=== PATIENT | female | born 1980 | race Caucasian/White ===

== ENCOUNTER 2018-12-08 06:56 | Inpatient (IN) | payer OTHER ==
[2018-12-08] MEDS ORDERED: SODIUM CHLORIDE 0.9% 2,000 ML IV STA (07:07)
[2018-12-08] MEDS ORDERED: PANTOPRAZOLE 40 MG/10 ML VIAL IVP STA (07:07)
[2018-12-08] MEDS ORDERED: ONDANSETRON 4 MG/2 ML VIAL IVP STA (07:07)
[2018-12-08] MEDS ORDERED: LORazepam 2 MG/ML INJ IV STA ×2 (07:08→15:41)
[2018-12-08] MEDS ORDERED: THIAMINE 100 MG/ML 2 ML VIAL IM STA (07:08)
--- NOTE | 2018-12-08 07:24 | ED ---
General Adult HPI - General Chief complaint: Nausea/Vomiting/Diarrhea Stated complaint: poss sinus infection,alcohol withdrawl Time Seen by Provider: 12/08/18 07:06 Source: patient, family, RN notes reviewed Mode of arrival: ambulatory Limitations: no limitations - History of Present Illness Initial comments: This a 38-year-old female presents emergency Department with multiple complaints. Primary complaint is sinus infection, alcohol withdrawal. Patient states she's been dealing sinus issues for one month has been on 3 different antibiotics and is scheduled see ENT. Patient went to severe facial pain, head blurred vision near no vision her right eye when she woke up this morning. Patient states that has resolved this time. She has had some pressure behind her eye on the right. Patient states she currently is not having that symptoms. Patient states that she does have a history of alcohol abuse in which 2 years ago she had a liver failure, was jaundice and admitted to the hospital. Patient states that she usually drinks at least a bottle wine and at least a pint of vodka daily. Patient states she has been vomiting all morning, shaking Heart is racing and she's having hallucinations. Patient states that she was restrained last time she had hallucinations from alcohol withdrawal. Patient has never been to rehab. Patient denies any suicidal or homicidal ideation. Patient was no localized abdominal pain - Related Data Home Medications Medication Instructions Recorded Confirmed Atenolol 100 mg PO DAILY 12/08/18 12/08/18 Citalopram Hydrobromide [CeleXA] 40 mg PO DAILY 12/08/18 12/08/18 Ibuprofen [Motrin Ib] 200 mg PO Q6H PRN 12/08/18 12/08/18 Allergies Allergy/AdvReac Type Severity Reaction Status Date / Time No Known Allergies Allergy Verified 12/08/18 08:43 Review of Systems ROS Statement: Those systems with pertinent positive or pertinent negative responses have been documented in the HPI. ROS Other: All systems not noted in ROS Statement are negative. Past Medical History Past Medical History: Hypertension History of Any Multi-Drug Resistant Organisms: None Reported Past Surgical History: Adenoidectomy, Tonsillectomy Additional Past Surgical History / Comment(s): sinus Past Psychological History: Anxiety Smoking Status: Former smoker Past Alcohol Use History: Abuse, Heavy Past Drug Use History: None Reported General Exam Limitations: no limitations General appearance: alert, in no apparent distress Head exam: Present: atraumatic, normocephalic, normal inspection Eye exam: Present: normal appearance, PERRL, EOMI. Absent: scleral icterus, conjunctival injection, periorbital swelling ENT exam: Present: normal oropharynx, mucous membranes moist, TM's normal bilaterally, normal external ear exam. Absent: normal exam (Maxillary sinus tenderness) Neck exam: Present: normal inspection, full ROM. Absent: tenderness, meningismus, lymphadenopathy Respiratory exam: Present: normal lung sounds bilaterally. Absent: respiratory distress, wheezes, rales, rhonchi, stridor Cardiovascular Exam: Present: normal rhythm, tachycardia, normal heart sounds. Absent: systolic murmur, diastolic murmur, rubs, gallop, clicks GI/Abdominal exam: Present: soft, normal bowel sounds. Absent: distended, tenderness, guarding, rebound, rigid Neurological exam: Present: alert, oriented X3, CN II-XII intact Skin exam: Present: warm, dry, intact, normal color. Absent: rash Course Vital Signs 12/08/18 07:00 Temperature 98.7 F Pulse Rate 104 H Respiratory 20 Rate Blood Pressure 141/96 O2 Sat by Pulse 98 Oximetry Medical Decision Making - Medical Decision Making 38-year-old female presented from for abdominal pain, nausea vomiting. Patient does have a call withdrawal symptoms, elevated liver enzymes and concern for possible pancreatitis unable to run lipase at this time due to lipemic sample. Case discussed with admitting physician who recommended CT and replacement cwia protocol. - Lab Data Result diagrams: 12/08/18 07:38 12/08/18 07:38 Lab Results 12/08/18 12/08/18 12/08/18 Range/Units 07:38 07:38 08:05 WBC 6.1 (3.8-10.6) k/uL RBC 4.05 (3.80-5.40) m/uL Hgb 13.4 (11.4-16.0) gm/dL Hct 39.9 (34.0-46.0) % MCV 98.5 (80.0-100.0) fL MCH 32.9 (25.0-35.0) pg MCHC 33.7 (31.0-37.0) g/dL RDW 14.5 (11.5-15.5) % Plt Count 172 (150-450) k/uL Neutrophils % 57 % Lymphocytes % 35 % Monocytes % 5 % Eosinophils % 1 % Basophils % 1 % Neutrophils # 3.4 (1.3-7.7) k/uL Lymphocytes # 2.1 (1.0-4.8) k/uL Monocytes # 0.3 (0-1.0) k/uL Eosinophils # 0.0 (0-0.7) k/uL Basophils # 0.1 (0-0.2) k/uL Sodium 138 (137-145) mmol/L Potassium 4.7 (3.5-5.1) mmol/L Chloride 101 (98-107) mmol/L Carbon Dioxide 20 L (22-30) mmol/L Anion Gap 17 mmol/L BUN 19 H (7-17) mg/dL Creatinine 0.64 (0.52-1.04) mg/dL Est GFR (CKD-EPI)AfAm >90 (>60 ml/min/1.73 sqM) Est GFR (CKD-EPI)NonAf >90 (>60 ml/min/1.73 sqM) Glucose 122 H (74-99) mg/dL Calcium 8.4 (8.4-10.2) mg/dL Magnesium 1.8 (1.6-2.3) mg/dL Total Bilirubin 2.2 H (0.2-1.3) mg/dL AST 603 H (14-36) U/L ALT 143 H (9-52) U/L Alkaline Phosphatase 374 H (38-126) U/L Total Protein 8.0 (6.3-8.2) g/dL Albumin 4.1 (3.5-5.0) g/dL Amylase 84 (30-110) U/L Lipase (23-300) U/L Urine Color Yellow Urine Appearance Cloudy H (Clear) Urine pH 6.0 (5.0-8.0) Ur Specific [place] 1.022 (1.001-1.035) Urine Protein Trace H (Negative) Urine Glucose (UA) Negative (Negative) Urine Ketones Negative (Negative) Urine Blood Trace H (Negative) Urine Nitrite Negative (Negative) Urine Bilirubin Negative (Negative) Urine Urobilinogen <2.0 (<2.0) mg/dL Ur Leukocyte Esterase Negative (Negative) Urine RBC 6 H (0-5) /hpf Urine WBC 8 H (0-5) /hpf Ur Squamous Epith Cells 5 H (0-4) /hpf Amorphous Sediment Rare H (None) /hpf Urine Bacteria Occasional H (None) /hpf Hyaline Casts 19 H (0-2) /lpf Urine Mucus Occasional H (None) /hpf Urine HCG, Qual (Not Detectd) Serum Alcohol 223 H* mg/dL 12/08/18 Range/Units 08:05 WBC (3.8-10.6) k/uL RBC (3.80-5.40) m/uL Hgb (11.4-16.0) gm/dL Hct (34.0-46.0) % MCV (80.0-100.0) fL MCH (25.0-35.0) pg MCHC (31.0-37.0) g/dL RDW (11.5-15.5) % Plt Count (150-450) k/uL Neutrophils % % Lymphocytes % % Monocytes % % Eosinophils % % Basophils % % Neutrophils # (1.3-7.7) k/uL Lymphocytes # (1.0-4.8) k/uL Monocytes # (0-1.0) k/uL Eosinophils # (0-0.7) k/uL Basophils # (0-0.2) k/uL Sodium (137-145) mmol/L Potassium (3.5-5.1) mmol/L Chloride (98-107) mmol/L Carbon Dioxide (22-30) mmol/L Anion Gap mmol/L BUN (7-17) mg/dL Creatinine (0.52-1.04) mg/dL Est GFR (CKD-EPI)AfAm (>60 ml/min/1.73 sqM) Est GFR (CKD-EPI)NonAf (>60 ml/min/1.73 sqM) Glucose (74-99) mg/dL Calcium (8.4-10.2) mg/dL Magnesium (1.6-2.3) mg/dL Total Bilirubin (0.2-1.3) mg/dL AST (14-36) U/L ALT (9-52) U/L Alkaline Phosphatase (38-126) U/L Total Protein (6.3-8.2) g/dL Albumin (3.5-5.0) g/dL Amylase (30-110) U/L Lipase (23-300) U/L Urine Color Urine Appearance (Clear) Urine pH (5.0-8.0) Ur Specific [place] (1.001-1.035) Urine Protein (Negative) Urine Glucose (UA) (Negative) Urine Ketones (Negative) Urine Blood (Negative) Urine Nitrite (Negative) Urine Bilirubin (Negative) Urine Urobilinogen (<2.0) mg/dL Ur Leukocyte Esterase (Negative) Urine RBC (0-5) /hpf Urine WBC (0-5) /hpf Ur Squamous Epith Cells (0-4) /hpf Amorphous Sediment (None) /hpf Urine Bacteria (None) /hpf Hyaline Casts (0-2) /lpf Urine Mucus (None) /hpf Urine HCG, Qual Not Detected (Not Detectd) Serum Alcohol mg/dL Disposition Clinical Impression: Alcohol withdrawal, Alcoholic hepatitis, Abdominal pain, Nausea & vomiting Disposition: ADMITTED IP TO THIS [facility] Condition: Fair Referrals: Nonstaff,Physician [Primary Care Provider] - 1-2 days
[2018-12-08 08:03] LABS: Chloride 101 mmol/L (98-107); Sodium 138 mmol/L (137-145)
[2018-12-08 08:13] LABS: Basophils # (A) 0.1 k/uL (0-0.2); Basophils % (A) 1 %; Eosinophils % (A) 1 %; HCT 39.9 % (34.0-46.0); Lymphocytes # (A) 2.1 k/uL (1.0-4.8); Lymphocytes % (A) 35 %; MCV 98.5 fL (80.0-100.0); Mean Platelet Volume 8.4; Monocytes # (A) 0.3 k/uL (0-1.0); Monocytes % (A) 5 %; Neutrophils # (A) 3.4 k/uL (1.3-7.7); Neutrophils % (A) 57 %; Platelet Count 172 k/uL (150-450); RBC 4.05 m/uL (3.80-5.40); RDW 14.5 % (11.5-15.5); WBC 6.1 k/uL (3.8-10.6)
[2018-12-08 08:33] LABS: Amorphous Sediment,Urine Rare /hpf; Appearance,Urine Cloudy (Clear); Bacteria,Urine Occasional /hpf; Bilirubin,Urine Negative (Negative); Blood,Urine Trace (Negative); Color,Urine Yellow; Glucose,Urine (UA) Negative (Negative); Hyaline Casts,Urine 19 /lpf (0-2); Ketones,Urine Negative (Negative); Leukocyte Esterase,Urine Negative (Negative); Mucus,Urine Occasional /hpf; Nitrite,Urine Negative (Negative); Protein,Urine Trace (Negative); RBC,Urine 6 /hpf (0-5); Specific Gravity,Urine 1.022 (1.001-1.035); Squamous Epithelial Cell,Urine 5 /hpf (0-4); Urobilinogen,Urine <2.0 mg/dL (<2.0); WBC,Urine 8 /hpf (0-5)
[2018-12-08 08:38] LABS: MCH 32.9 pg (25.0-35.0); MCHC 33.7 g/dL (31.0-37.0)
[2018-12-08 08:39] LABS: HGB 13.4 gm/dL (11.4-16.0)
--- NOTE | 2018-12-08 09:03 | CT ---
EXAMINATION TYPE: CT sinus wo con DATE OF EXAM: 12/08/2018 COMPARISON: None HISTORY: Possible sinus infection, facial pain CT DLP: 345.7 mGycm. Automated Exposure Control for Dose Reduction was Utilized. TECHNIQUE: CT scan of the sinuses is performed without contrast, axial images are obtained, coronal r eformatted images are also reviewed. FINDINGS: The paranasal sinuses including the frontal, ethmoid, sphenoid, and maxillary sinuses bila terally are well-aerated scattered mucous retention cyst or polyps. Minimal mucosal thickening.. The ostiomeatal complex is patent bilaterally on the coronal images. There appears to be evidence of pre vious sinus surgery. Visualized portion of mastoid air cells show no abnormal opacification. The globes are intact bilate rally. Intracranial structures are symmetric. Correlate for exophthalmos. IMPRESSION: 1. Minimal changes of chronic sinusitis. 2. Correlate for exophthalmos
[2018-12-08 09:11] LABS: Potassium 4.7 mmol/L (3.5-5.1)
[2018-12-08 09:14] LABS: ALT 143 U/L (9-52); AST 603 U/L (14-36); African American GFR (CKD) >90 (>60 ml/min/1.73 sqM); Albumin 4.1 g/dL (3.5-5.0); Alkaline Phosphatase 374 U/L (38-126); Amylase 84 U/L (30-110); Anion Gap 17 mmol/L; Blood Urea Nitrogen 19 mg/dL (7-17); Calcium 8.4 mg/dL (8.4-10.2); Carbon Dioxide 20 mmol/L (22-30); Glucose 122 mg/dL (74-99); Magnesium 1.8 mg/dL (1.6-2.3); Total Bilirubin 2.2 mg/dL (0.2-1.3)
[2018-12-08 09:24] LABS: Alcohol 223 mg/dL
[2018-12-08] MEDS ORDERED: LORazepam 2 MG/ML INJ IV PRN (09:42)
[2018-12-08] MEDS ORDERED: MORPHINE SULFATE 4 MG/ML SYRINGE IV PRN (09:42)
[2018-12-08] MEDS ORDERED: NALOXONE 0.4 MG/ML 1 ML VIAL IV PRN (09:42)
[2018-12-08] MEDS ORDERED: ONDANSETRON 4 MG/2 ML VIAL IVP PRN (09:42)
[2018-12-08] MEDS ORDERED: SODIUM CHLORIDE 0.9% 1,000 ML with MVI, ADULT NO.4 WITH VIT K 10 ML, THIAMINE 100 MG, F... IV ONE ×4 (10:00)
[2018-12-08] MEDS: LORazepam 2 MG/ML INJ IV PRN ×4 (10:18→23:37)
--- NOTE | 2018-12-08 10:22 | CT ---
EXAMINATION TYPE: CT abdomen pelvis w con DATE OF EXAM: 12/08/2018 COMPARISON: None HISTORY: mid abd pain CT DLP: 1013.17 mGycm Automated exposure control for dose reduction was used. CONTRAST: CT scan of the abdomen pelvis is performed with IV Contrast, patient injected with 100 mL of Isovue 3 00. FINDINGS- LUNG BASES- No significant abnormality is appreciated. LIVER/GB-reduced attenuation throughout the liver correlate for hepatic steatosis.. PANCREAS- No gross abnormality is seen. SPLEEN- No gross abnormality is seen. ADRENALS- No gross abnormality is seen. KIDNEYS/BLADDER- no hydronephrosis nephrolithiasis or renal mass. BOWEL-bowel gas pattern nonspecific. Appendix is not visualized exam nondiagnostic for appendicitis. Occasional diverticula are seen:. The colon is decompressed assessment for wall thickness is nondiagn ostic. There is concern for colitis correlate clinically.. LYMPH NODES- No greater than 1cm abdominal or pelvic lymph nodes areappreciated. OSSEOUS STRUCTURES- No significant abnormality is seen. OTHER- aorta of normal caliber. Soft tissue densities in the pelvis are likely related to ovaries th e adnexa. Fat-containing periumbilical hernia noted. Uterus is lobulated in endometrium is heterogene ous. IMPRESSION- 1. Hepatomegaly with findings suggestive of hepatic steatosis. Correlate with liver function studies to exclude hepatocellular disease. 2. Nonspecific gas pattern with no diagnostic evidence of obstruction. Colonic wall is thickened but the colon is decompressed and markedly limited in assessment. Correlate clinically there is concern f or colitis. 3. Nonvisualization of the appendix. 4. Diverticulosis. 5. Slight lobulation to the uterine body could be on the basis of fibroid. There is heterogeneous end ometrium could be correlated with a short-term follow-up ultrasound
[2018-12-08 11:52] VITALS: BMI 31.8
[2018-12-08] MEDS: THIAMINE 100 MG TAB PO SCH ×2 (15:51→17:27)
[2018-12-08] MEDS ORDERED: HYDROcodone/APAP 5-325MG 1 EACH TAB PO PRN (16:02)
[2018-12-08] MEDS ORDERED: BISACODYL 5 MG TABLET.DR PO PRN (16:02)
[2018-12-08] MEDS ORDERED: MELATONIN 3 MG TABLET PO PRN (16:02)
--- NOTE | 2018-12-08 16:11 | P.HPIM ---
History of Present Illness H&P Date: 12/08/18 Chief Complaint: abdominal pain and alcohol withdrawal Patient is a 38-year-old female with a past medical history of hypertension, panic attacks, and alcohol abuse who presented to the ER with complaints of alcohol withdrawal, abdominal pain, and chronic headaches. In the ER she underwent an extensive evaluation. On arrival she was found to be tachycardic with heart rate of 104 and a blood pressure of 141/96. Initial laboratory analysis showed an elevated AST at 603, ALT 143, total bilirubin 2.2. She was also found have an anion gap metabolic acidosis with a carbon dioxide of 28 and anion gap of 17. Her alcohol level was elevated at 223. Urinalysis d id not demonstrate any evidence of urinary tract infection. She underwent a CT abdomen and pelvis which showed hepatomegaly with findings suggestive of hepatic steatosis, nonspecific gas pattern with no evidence of obstruction but colonic wall thickening, diverticulosis, and slightly lobulated uterine body with possible fibroid and heterogeneous endometrium. She is admitted for further management of her alcohol withdrawal and alcoholic hepatitis. Started on IV fluids and CIWA protocol. Patient seen and examined at bedside. Family is present. She states that she is having some abdominal pain, tremors, anxiety, and nausea and vomiting. She is typically drinking 1 bottle of wine to 1 pint of vodka daily. Her last drink was at 10 PM the night before admission. She also reports that she has been suffering from depression recently, of suicidal ideation. She's been having poor oral intake and decreased appetite. She denies any significant weight loss or weight gain. She has lost enjoying her normal activities of daily living, has been sleeping all day, and that is having insomnia at night. She has been suffering from sinusitis for the last month. She's been having headache, ear pain, runny and stuffy nose as well as postnasal drip. She has chronic sinus pressure over her maxillary sinuses and the feels like she is having a crackling. She also reports that she has had some blood in her appears in her nose. She states she's been on 3 different antibiotics over the last month and seen 3 different physicians for this. She has appointment with ENT on December 13. She also reports abdominal pain that has been present 1 month. It is worse with eating. She reports that sometimes when she is eating she feels as though her salt liquids get stuck. She sometimes regurgitates the food and sometimes only regurgitates acid-like product. She also reports increased heartburn. She states it is worse with alcohol use. Last time she stopped drinking was approximately 2 years ago. At that point in time she was hospitalized at [facility] and had significant alcohol withdrawal including hallucinations, agitation, and required restraints. She believes her liver enzymes were around thousand at that point in time. She is unsure if she has seizures. She did not require intubation. She does have a history of an embedded intrauterine IUD. She also had an en dometrial biopsy approximately one year ago. She is already following with [facility] we did discuss her endometrial heterogenety. Review of Systems Pertinent positives and negatives as discussed in HPI, a complete review of systems was performed and all other systems are negative. 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 - Past Family History Mother Family Medical History: Diabetes Mellitus Father Family Medical History: Coronary Artery Disease (CAD), Hypertension Brother(s) Additional Family Medical History / Comment(s): bicuspid aortic valve Medications and Allergies Home Medications Medication Instructions Recorded Confirmed Type Atenolol 100 mg PO DAILY 12/08/18 12/08/18 History Citalopram Hydrobromide [CeleXA] 40 mg PO DAILY 12/08/18 12/08/18 History Ibuprofen [Motrin Ib] 200 mg PO Q6H PRN 12/08/18 12/08/18 History Allergies Allergy/AdvReac Type Severity Reaction Status Date / Time No Known Allergies Allergy Verified 12/08/18 08:43 Physical Exam Osteopathic Statement: *. No significant issues noted on an osteopathic structural exam other than those noted in the History and Physical/Consult. Vitals: Vital Signs Temp Pulse Pulse Resp BP BP Pulse Ox 12/08/18 12:04 97.7 F 91 18 125/78 96 12/08/18 10:21 97.9 F 12/08/18 09:58 91 18 139/86 98 12/08/18 07:00 98.7 F 104 H 20 141/96 98 Intake and Output 12/08/18 12/08/18 12/08/18 06:59 14:59 22:59 Other: # Voids 3 Weight 81.647 kg General: non toxic, no distress, appears at stated age, Obese Derm: no unusual rashes/lesions no unusual ecchymoses, warm, dry Head: atraumatic, normocephalic, symmetric Eyes: EOMI, no lid lag, anicteric sclera, pupils equal round reactive to light ENT: Nose and ears atraumatic, no thrush, + pharyngeal erythema, + PND Neck: No thyromegaly, no cervical lymphadenopathy, trachea midline, supple Mouth: no lip lesion, mucus membranes moist Cardiovascular: S1S2 reg, no murmur, positive posterior tibial pulse bilateral, no edema, capillary refill less than 2 seconds Lungs: CTA bilateral, no rhonchi, no rales , no accessory muscle use Abdominal: soft, + tender to palpation LUQ, no guarding, no appreciable organomegaly, normal bowel sounds Ext: no gross muscle atrophy, muscle strength 5 out of 5 in all 4 extremities grossly, no contractures, Neuro: CN II-XI grossly intact, light touch intact all 4 extremities, finger to nose within normal limits, no tremors Psych: Alert, oriented, appropriate affect Results CBC & Chem 7: 12/08/18 07:38 12/08/18 07:38 Labs: Abnormal Lab Results - Last 24 Hours (Table) 12/08/18 12/08/18 Range/Units 07:38 08:05 Carbon Dioxide 20 L (22-30) mmol/L BUN 19 H (7-17) mg/dL Glucose 122 H (74-99) mg/dL Total Bilirubin 2.2 H (0.2-1.3) mg/dL AST 603 H (14-36) U/L ALT 143 H (9-52) U/L Alkaline Phosphatase 374 H (38-126) U/L Urine Appearance Cloudy H (Clear) Urine Protein Trace H (Negative) Urine Blood Trace H (Negative) Urine RBC 6 H (0-5) /hpf Urine WBC 8 H (0-5) /hpf Ur Squamous Epith Cells 5 H (0-4) /hpf Amorphous Sediment Rare H (None) /hpf Urine Bacteria Occasional H (None) /hpf Hyaline Casts 19 H (0-2) /lpf Urine Mucus Occasional H (None) /hpf Serum Alcohol 223 H* mg/dL CT scan - abdomen: report reviewed CT Scan - head: report reviewed CT scan - pelvis: report reviewed Thrombosis Risk Factor Assmnt - DVT/VTE Prophylaxis DVT/VTE Prophylaxis: Pharmacologic Prophylaxis ordered Assessment and Plan Assessment: Alcohol withdrawal with impending DTs -Patient has history significant DTs however is not a candidate for Librium secondary to liver enzyme elevation -Continue with banana bag 1 -Folic acid and thiamine supplementation -CIWA protocol -Seizure precautions - social work consult Alcoholic hepatitis -Consult GI -Signs as hepatomegaly on computed tomography scan -check viral hepatitis profile - repeat labs in AM Chronic sinusitis - claritin - flonase - has outpatient appt December 13 Abd pain with dysphaia - start PPI - GI recs Depression - abstain for alcohol - outpatient psych eval Insomnia - Melatonin Heterogeneous endometrium - endometrial biopsy approximately one year ago. - She is already following with [facility], will follow-up as outpatient The patient is placed in observation with an anticipated less than 2 per night stay for evaluation of alcohol withdrawal. Surrogate decision-maker: Mother CODE STATUS: Full DVT prophylaxis: Lovenox Discussed with: Patient, fmaily, nursing, ED physician Anticipated discharge date: 1-[address]: home A total of 65 minutes was spent on the care of this complex patient more than 50% of the time was spent in counseling and care coordination.
[2018-12-08] MEDS: PANTOPRAZOLE 40 MG TABLET PO SCH (17:27)
[2018-12-08 22:50] LABS: Hepatitis A Antibody IgM Non-Reactive (Non-Reactive); Hepatitis B Core IgM Non-Reactive (Non-Reactive)
[2018-12-09] MEDS: LORazepam 2 MG/ML INJ IV PRN ×6 (01:53→21:03)
[2018-12-09 06:48] LABS: Basophils % (A) 0 %; Eosinophils # (A) 0.1 k/uL (0-0.7); Eosinophils % (A) 1 %; HCT 30.8 % (34.0-46.0); Lymphocytes # (A) 1.6 k/uL (1.0-4.8); Lymphocytes % (A) 32 %; Monocytes # (A) 0.2 k/uL (0-1.0); Monocytes % (A) 4 %; Neutrophils # (A) 3.1 k/uL (1.3-7.7); Neutrophils % (A) 61 %; Platelet Count 102 k/uL (150-450); RBC 3.11 m/uL (3.80-5.40); RDW 14.4 % (11.5-15.5); WBC 5.1 k/uL (3.8-10.6)
[2018-12-09 07:04] LABS: Chloride 103 mmol/L (98-107); Potassium 4.2 mmol/L (3.5-5.1); Sodium 136 mmol/L (137-145)
[2018-12-09 07:17] LABS: HGB 10.3 gm/dL (11.4-16.0); MCH 32.7 pg (25.0-35.0); MCHC 33.8 g/dL (31.0-37.0)
[2018-12-09 07:31] LABS: ALT 115 U/L (9-52); AST 515 U/L (14-36); African American GFR (CKD) >90 (>60 ml/min/1.73 sqM); Albumin 3.2 g/dL (3.5-5.0); Alkaline Phosphatase 258 U/L (38-126); Blood Urea Nitrogen 11 mg/dL (7-17); Calcium 7.9 mg/dL (8.4-10.2); Glucose 97 mg/dL (74-99); Total Bilirubin 2.4 mg/dL (0.2-1.3); Total Protein 6.5 g/dL (6.3-8.2)
[2018-12-09 07:55] LABS: Anion Gap 11 mmol/L; Carbon Dioxide 22 mmol/L (22-30); Magnesium 1.5 mg/dL (1.6-2.3)
[2018-12-09] MEDS: PANTOPRAZOLE 40 MG TABLET PO SCH (08:11)
[2018-12-09] MEDS: FOLIC ACID 1 MG TAB PO SCH (08:11)
[2018-12-09] MEDS: ENOXAPARIN 40 MG/0.4 ML SYRINGE SQ SCH (08:11)
[2018-12-09] MEDS: THIAMINE 100 MG TAB PO SCH ×2 (08:11→18:14)
[2018-12-09] MEDS: FLUTICASONE 50MCG/SPRAY NASAL 16GM EA NOSTRIL SCH (08:11)
[2018-12-09] MEDS: LORATADINE 10 MG TAB PO SCH (08:11)
[2018-12-09] MEDS ORDERED: PANTOPRAZOLE 40 MG/10 ML VIAL IV SCH (09:00)
--- NOTE | 2018-12-09 10:26 | P.PN ---
Subjective Progress Note Date: 12/09/18 Principal diagnosis: alcohol withdrawal Patient is a 38-year-old female with a past medical history of hypertension, panic attacks, and alcohol abuse who presented to the ER with complaints of alcohol withdrawal, abdominal pain, and chronic headaches. In the ER she underwent an extensive evaluation. On arrival she was found to be tachycardic with heart rate of 104 and a blood pressure of 141/96. Initial laboratory analysis showed an elevated AST at 603, ALT 143, total bilirubin 2.2. She was also found have an anion gap metabolic acidosis with a carbon dioxide of 28 and anion gap of 17. Her alcohol level was elevated at 223. Urinalysis did not demonstrate any evidence of urinary tract infection. She underwent a CT abdomen and pelvis which showed hepatomegaly with findings suggestive of hepatic steatosis, nonspecific gas pattern with no evidence of obstruction but colonic wall thickening, diverticulosis, and slightly lobulated uterine body with possib le fibroid and heterogeneous endometrium. She was admitted for further management of her alcohol withdrawal and alcoholic hepatitis. She was started on IV fluids and CIWA protocol. She was a history of severe alcohol withdrawals proximately 2 years prior. She is also been having issues with chronic sinusitis. On the morning of 12/09 her withdrawal symptoms had worsened and fixed dose of Ativan was admitted to the CIWA protocol. Patient seen and examined at bedside. She states she is having some auditory and visual hallucinations, she is feeling pretty restless and agitated, she is not Picking at things, she is also having some sweating and shaky feelings. She denies any nausea. She denies any seizure-like activity. She denies any chest pain or shortness of breath. Objective - Vital Signs Vital signs: Vital Signs Temp 98.5 F 12/09/18 07:00 Pulse 77 12/09/18 07:00 Resp 16 12/09/18 07:00 BP 139/83 12/09/18 07:00 Pulse Ox 96 12/09/18 07:00 Intake & Output 12/08/18 12/09/18 12/09/18 18:59 06:59 18:59 Intake Total 100 236 Balance 100 236 Weight 81.647 kg Intake: Oral 100 236 Other: # Voids 3 - Exam General: non toxic, mild distress, appears at stated age Derm: warm, diaphoretic Head: atraumatic, normocephalic, symmetric Eyes: EOMI, no lid lag, anicteric sclera Mouth: no lip lesion, mucus membranes moist Cardiovascular: S1 and S2 tachycardic, no murmur, positive posterior tibial pulse bilateral, Lungs: Decreased breath sounds bilateral, no rhonchi, no rales , no accessory muscle use Abdominal: soft, nontender to palpation, no guarding, no appreciable organomegaly Ext: no gross muscle atrophy, no edema, no contractures Neuro: CN II-XI grossly intact, no focal neuro deficits Psych: Alert, oriented, appropriate affect - Labs CBC & Chem 7: 12/09/18 06:06 12/09/18 06:06 Labs: Abnormal Lab Results - Last 24 Hours (Table) 12/09/18 12/09/18 Range/Units 06:06 06:06 RBC 3.11 L (3.80-5.40) m/uL Hgb 10.3 L D (11.4-16.0) gm/dL Hct 30.8 L (34.0-46.0) % Plt Count 102 L (150-450) k/uL Sodium 136 L (137-145) mmol/L Calcium 7.9 L (8.4-10.2) mg/dL Magnesium 1.5 L (1.6-2.3) mg/dL Total Bilirubin 2.4 H (0.2-1.3) mg/dL AST 515 H (14-36) U/L ALT 115 H (9-52) U/L Alkaline Phosphatase 258 H (38-126) U/L Albumin 3.2 L (3.5-5.0) g/dL Assessment and Plan Assessment: Alcohol withdrawal with impending DTs -Patient has history of significant DTs however she is not a candidate for Librium secondary to liver enzyme elevation -Completed banana bag -Folic acid and thiamine supplementation -CIWA protocol, add ativan PO q8h -Seizure precautions -social work recs Alcoholic hepatitis -Await GI recs -Signs of hepatomegaly on computed tomography scan -Viral hepatitis profile, negative - repeat labs in AM Chronic sinusitis - claritin - flonase - has outpatient appt December 13 Abd pain with dysphagia - PPI - GI recs Anemia and thrombocytopenia - follow CBC - suspect this may be her baseline, will check B 12 and Folate and FE studies Depression - abstain from alcohol - outpatient psych eval Insomnia - Melatonin Heterogeneous endometrium - endometrial biopsy approximately one year ago. - She is already following with [facility], will follow-up as outpatient DVT prophylaxis: Lovenox Discussed with: Patient, nursing Anticipated discharge date: 1-[address]: home A total of 30 minutes was spent on the care of this complex patient more than 50% of the time was spent in counseling and care coordination.
[2018-12-09] MEDS: MAGNESIUM SULFATE-D5W PMX 1 GM in DEXTROSE/WATER 1 100ML.BAG IVPB SCH ×4 (10:42→18:14)
[2018-12-09] MEDS: LORazepam 1 MG TAB PO SCH ×3 (10:42→23:27)
--- NOTE | 2018-12-09 22:12 | P.CONS ---
History of Present Illness - Reason for Consult Consult date: 12/09/18 Elevated liver enzymes, alcoholic hepatitis, alcoholic liver disease Requesting physician: Kellen Vasquez - Chief Complaint Abdominal pain, withdrawal - History of Present Illness 38-year-old female with a past medical history signi panic attacks and alcohol abuse who presented to the hospital with complaints of abdominal pain, chronic headaches alcohol withdrawal. The patient reports epigastric pain which she believes is worse with food and at night. She describes the pain as cramping and burning in sens The pain has been present for approximately one month. She does report trying [id number] Tums for treatment of her pain with no relief. She is not tried proton pump inhibitor therapy in the past. She does report intermittent dysphagia as well as odynophagia. No prior EGD the reported. She does report that her family members have been diagnosed with a hiatal hernia. No colonoscop Generally bowel movements are 1-2 nonbloody non- melanotic stool daily. No prior episodes of gallbladder dysfunction. She denies any history of IV drug abuse. No new medications over the past 6 months, herbal supplementations, blood transfusions but does have tattoos and reports antibiotic treatment for sinusitis recently. Patient isn't every day drinker re porting consumption of 1 bottle of wine or 1 pint of vodka. Last alcoholic beverage was prior to admission. Liver enzymes on presentation significant for total bilirubin 2.2, AST 603, ALT 143. Computed tomography scan of the abdomen and pelvis showed hepatomegaly with findings suggestive of hepatic steatosis,nonspecific gas pattern with no obstruction noted but some colon wall thickening seen, diverticulosis and other findings. Currently she is seen on medical for receiving CIOR protocol. Review of Systems REVIEW OF SYSTEMS: CONSTITUTIONAL: Denies any fevers, chills, weight change or fatigue. CARDIOVASCULAR: Denies any chest pain, palpitations high or low blood pressures RESPIRATORY: Denies any shortness of breath, hemoptysis or cough. GENITOURINARY: No dysuria or hematuria. MUSCULOSKELETAL: No weakness reported. SKIN: Denies any new rashes or lesions, jaundice or pallor. PSYCHIATRIC: history of depression and suicidal thoughts. NEUROLOGY: Deoes report headaches, denies any new focal deficits. EARS/NOSE/THROAT: No recent hearing change, reports multiple courses of antibiotics for sinusitis recently. EYES: No pain in eyes, discharge or change in vision. GASTROINTESTINAL: As per HPI. Past Medical History Past Medical History: Hypertension, Liver Disease History of Any Multi-Drug Resistant Organisms: None Reported Past Surgical History: Adenoidectomy, Tonsillectomy Additional Past Surgical History / Comment(s): Removal of sinus polyp, removal of embedded IUD Past Anesthesia/Blood Transfusion Reactions: No Reported Reaction Past Psychological History: Anxiety Smoking Status: Former smoker Past Alcohol Use History: Abuse, Heavy Past Drug Use History: None Reported - Past Family History Mother Family Medical History: Diabetes Mellitus Father Family Medical History: Coronary Artery Disease (CAD), Hypertension Brother(s) Additional Family Medical History / Comment(s): bicuspid aortic valve Medications and Allergies Home Medications Medication Instructions Recorded Confirmed Type Atenolol 100 mg PO DAILY 12/08/18 12/08/18 History Citalopram Hydrobromide [CeleXA] 40 mg PO DAILY 12/08/18 12/08/18 History Ibuprofen [Motrin Ib] 200 mg PO Q6H PRN 12/08/18 12/08/18 History Allergies Allergy/AdvReac Type Severity Reaction Status Date / Time No Known Allergies Allergy Verified 12/08/18 08:43 Physical Exam Vitals: Vital Signs Temp Pulse Pulse Resp BP BP Pulse Ox 12/09/18 07:00 98.5 F 77 16 139/83 96 12/09/18 01:49 98.9 F 78 18 136/83 95 12/08/18 19:13 98.7 F 75 17 145/93 97 12/08/18 15:00 98.0 F 84 18 136/87 95 12/08/18 12:04 97.7 F 91 18 125/78 96 12/08/18 10:21 97.9 F 12/08/18 09:58 91 18 139/86 98 Intake and Output 12/08/18 12/09/18 12/09/18 22:59 06:59 14:59 Intake Total 100 236 Balance 100 236 Intake: Oral 100 236 Other: # Voids 3 On physical examination, patient appears comfortable in no apparent distress. HEAD: Normocephalic, atraumatic. EYES: No scleral icterus. No conjunctival injection. MOUTH: No lesions, tongue midline. NECK: Trachea midline, no gross abnormalities. CHEST: Clear to auscultation with no wheezing or rhonchi appreciated. HEART: Regular rate and rhythm. ABDOMEN: Soft. Bowel sounds are positive. No organomegaly. No guarding or rigidity. EXTREMITIES: No pedal edema. SKIN: No rashes, no jaundice. NEUROLOGIC: Alert and oriented x3, no asterixis patient is tremulous. No focal deficits. Results CBC & Chem 7: 12/09/18 06:06 12/09/18 06:06 Labs: Abnormal Lab Results - Last 24 Hours (Table) 12/09/18 12/09/18 Range/Units 06:06 06:06 RBC 3.11 L (3.80-5.40) m/uL Hgb 10.3 L D (11.4-16.0) gm/dL Hct 30.8 L (34.0-46.0) % Plt Count 102 L (150-450) k/uL Sodium 136 L (137-145) mmol/L Calcium 7.9 L (8.4-10.2) mg/dL Magnesium 1.5 L (1.6-2.3) mg/dL Total Bilirubin 2.4 H (0.2-1.3) mg/dL AST 515 H (14-36) U/L ALT 115 H (9-52) U/L Alkaline Phosphatase 258 H (38-126) U/L Albumin 3.2 L (3.5-5.0) g/dL Assessment and Plan (1) Alcoholic hepatitis Narrative/Plan: 30-year-old female with a medical history significant for alcohol abuse who presented to the hospital for management of alcohol withdrawal, evaluation of abdominal pain and headache. Alcohol level was detectable on admission with patient reporting last drink on the night prior to admission. Liver enzymes consistent with acute alcoholic hepatitis. Current Visit: Yes Status: Acute Code(s): K70.10 - ALCOHOLIC HEPATITIS WITHOUT ASCITES SNOMED Code(s): 553707819 (2) Abdominal pain Narrative/Plan: patient describes symptoms of uncontrolled gastroesophageal reflux disease with associated nausea and vomiting, dysphagia and odynophagia. No prior exposure to PPI therapy. Current Visit: Yes Status: Acute Code(s): R10.9 - UNSPECIFIED ABDOMINAL PAIN SNOMED Code(s): 34134753 (3) Diverticulosis Current Visit: Yes Status: Acute Code(s): K57.90 - DVRTCLOS OF INTEST, PART UNSP, W/O PERF OR ABSCESS W/O BLEED SNOMED Code(s): 532578487 (4) Alcohol withdrawal Current Visit: Yes Status: Acute Code(s): F10.239 - ALCOHOL DEPENDENCE WITH WITHDRAWAL, UNSPECIFIED SNOMED Code(s): 898867387 (5) Nausea & vomiting Current Visit: Yes Status: Acute Code(s): R11.2 - NAUSEA WITH VOMITING, UNSPECIFIED SNOMED Code(s): 01917192 Plan: Supportive care Okay for diet Continue to monitor CBC, CMP, liver enzymes and INR [facility] protocol Will increase Protonix 40 mg to twice daily and add Pepcid at night Alcohol abstinence Ultrasound abdomen ordered Acute viral hepatitis panel negative Thank you for allowing us to participate in the care of the patient we will continue to follow
[2018-12-09] MEDS: FAMOTIDINE 20 MG TAB PO SCH (23:27)
[2018-12-10] MEDS: LORazepam 2 MG/ML INJ IV PRN ×4 (04:05→12:10)
[2018-12-10] MEDS: LORazepam 1 MG TAB PO SCH ×3 (08:00→23:08)
[2018-12-10] MEDS: THIAMINE 100 MG TAB PO SCH ×2 (08:01→16:06)
[2018-12-10] MEDS: FOLIC ACID 1 MG TAB PO SCH (08:01)
[2018-12-10] MEDS: LORATADINE 10 MG TAB PO SCH (08:01)
[2018-12-10] MEDS: ENOXAPARIN 40 MG/0.4 ML SYRINGE SQ SCH (08:01)
[2018-12-10] MEDS: PANTOPRAZOLE 40 MG TABLET PO SCH ×2 (08:01→16:06)
[2018-12-10] MEDS: FLUTICASONE 50MCG/SPRAY NASAL 16GM EA NOSTRIL SCH (08:05)
--- NOTE | 2018-12-10 08:36 | US ---
EXAMINATION TYPE: US abdomen complete DATE OF EXAM: 12/10/2018 COMPARISON: CT 12/08/2018 CLINICAL HISTORY: 38-year-old female Elevated liver enzymes. Hepatic steatosis, ETOH withdrawal, epig astric pain per patient TECHNIQUE: Multiple sonographic images of the abdomen are obtained. FINDINGS: EXAM MEASUREMENTS: Liver Length: 22.5 cm Gallbladder Wall: 0.2 cm CBD: 0.4 cm Spleen: 10.8 cm Right Kidney: 10.1 x 4.3 x 5.8 cm Left Kidney: 10.8 x 6.2 x 5.5 cm Pancreas: Suboptimal visualization of the pancreatic tail secondary to shadowing from bowel gas. Liver: Markedly echogenic and attenuating. This secondary limits assessment for focal lesion. Gallbladder: wnl Evidence for sonographic Boone's sign: no CBD: wnl Spleen: wnl Right Kidney: No hydronephrosis. Left Kidney: No hydronephrosis. Upper IVC: wnl Abd Aorta: upper and mid is visualized and is wnl; lower aorta is gassed out IMPRESSION: 1. Hepatomegaly (22.5 cm) with severe hepatic steatosis. This secondarily limits assessment for focal lesion. Correlate with LFTs, lipid profile, and patient risk factors. 2. No cholelithiasis or biliary ductal dilatation.
[2018-12-10 09:59] LABS: INR 1.2 (<1.2); Prothrombin Time 12.3 sec (9.0-12.0)
[2018-12-10 10:33] LABS: HCT 37.8 % (34.0-46.0); HGB 12.5 gm/dL (11.4-16.0); MCH 33.2 pg (25.0-35.0); MCHC 33.1 g/dL (31.0-37.0); MCV 100.5 fL (80.0-100.0); Macrocytosis Slight; RBC 3.76 m/uL (3.80-5.40); RDW 14.5 % (11.5-15.5)
[2018-12-10 10:40] LABS: ALT 119 U/L (9-52); AST 435 U/L (14-36); African American GFR (CKD) >90 (>60 ml/min/1.73 sqM); Albumin 3.3 g/dL (3.5-5.0); Alkaline Phosphatase 300 U/L (38-126); Anion Gap 7 mmol/L; Blood Urea Nitrogen 4 mg/dL (7-17); Calcium 8.4 mg/dL (8.4-10.2); Carbon Dioxide 27 mmol/L (22-30); Chloride 105 mmol/L (98-107); Glucose 158 mg/dL (74-99); Potassium 3.3 mmol/L (3.5-5.1); Sodium 139 mmol/L (137-145); Total Bilirubin 2.2 mg/dL (0.2-1.3); Total Protein 6.8 g/dL (6.3-8.2)
[2018-12-10] MEDS ORDERED: POTASSIUM BICARBONATE/CIT AC 20 MEQ TABLET.EFF PO ONE (10:41)
--- NOTE | 2018-12-10 10:46 | P.PN ---
Subjective Progress Note Date: 12/10/18 Principal diagnosis: alcohol withdrawal Patient is a 38-year-old female with a past medical history of hypertension, panic attacks, and alcohol abuse who presented to the ER with complaints of alcohol withdrawal, abdominal pain, and chronic headaches. In the ER she underwent an extensive evaluation. On arrival she was found to be tachycardic with heart rate of 104 and a blood pressure of 141/96. Initial laboratory analysis showed an elevated AST at 603, ALT 143, total bilirubin 2.2. She was also found have an anion gap metabolic acidosis with a carbon dioxide of 28 and anion gap of 17. Her alcohol level was elevated at 223. Urinalysis did not demonstrate any evidence of urinary tract infection. She underwent a CT abdomen and pelvis which showed hepatomegaly with findings suggestive of hepatic steatosis, nonspecific gas pattern with no evidence of obstruction but colonic wall thickening, diverticulosis, and slightly lobulated uterine body with possib le fibroid and heterogeneous endometrium. She was admitted for further management of her alcohol withdrawal and alcoholic hepatitis. She was started on IV fluids and CIWA protocol. She was a history of severe alcohol withdrawals proximately 2 years prior. She is also been having issues with chronic sinusitis. On the morning of 12/09 her withdrawal symptoms had worsened and fixed dose of Ativan was admitted to the CIWA protocol. She had some improvement by the morning of 12/10. Patient seen and examined at bedside. Still having some auditory and visual hallucinations, she less restless and agitated than yesterday, not picking at things, + shaky feelings, no diaphoresis, + minimal nausea. She denies any seizure-like activity. She denies any chest pain or shortness of breath. Objective - Vital Signs Vital signs: Vital Signs Temp 98.4 F 12/10/18 07:37 Pulse 115 H 12/10/18 07:37 Resp 16 12/10/18 07:37 BP 138/97 12/10/18 07:37 Pulse Ox 95 12/10/18 07:37 Intake & Output 12/09/18 12/10/18 12/10/18 18:59 06:59 18:59 Intake Total 736 580 Balance 736 580 Intake: Oral 736 580 Other: Voiding Method Toilet # Voids 3 1 1 - Exam General: non toxic, no distress, appears at stated age Derm: warm, diaphoretic Head: atraumatic, normocephalic, symmetric Eyes: EOMI, no lid lag, anicteric sclera Mouth: no lip lesion, mucus membranes moist Cardiovascular: S1 and S2 tachycardic, no murmur, positive posterior tibial pulse bilateral, Lungs: Decreased breath sounds bilateral, no rhonchi, no rales , no accessory muscle use Abdominal: soft, nontender to palpation, no guarding, no appreciable organomegaly Ext: no gross muscle atrophy, no edema, no contractures Neuro: CN II-XI grossly intact, no focal neuro deficits, no tremors noted Psych: Alert, oriented, appropriate affect - Labs CBC & Chem 7: 12/10/18 09:22 12/09/18 06:06 Labs: Abnormal Lab Results - Last 24 Hours (Table) 12/10/18 12/10/18 Range/Units 09:22 09:22 RBC 3.76 L (3.80-5.40) m/uL MCV 100.5 H (80.0-100.0) fL PT 12.3 H (9.0-12.0) sec INR 1.2 H (<1.2) Assessment and Plan Assessment: Alcohol withdrawal with impending DTs -Patient has history of significant DTs however she is not a candidate for Librium secondary to liver enzyme elevation -Completed banana bag -Folic acid and thiamine supplementation -CIWA protocol, ativan PO q8h -Seizure precautions -social work recs Alcoholic hepatitis, hepatic steatosis and severe hepatogemally -GI recs appreciated -Viral hepatitis profile, negative - repeat labs in AM, improving Hypokalemia - replace and recheck Chronic sinusitis - claritin - flonase - has outpatient appt December 13 Abd pain with dysphagia - PPI BID, Pepcid at night - GI recs appreciated Anemia and thrombocytopenia, resolved on todays blood work - follow CBC - B 12 and Folate and Fe studies pending Depression - abstain from alcohol - outpatient psych eval Insomnia - Melatonin Heterogeneous endometrium - endometrial biopsy approximately one year ago. - She is already following with [employer], will follow-up as outpatient DVT prophylaxis: Lovenox Discussed with: Patient, nursing Anticipated discharge date: in AM Anticipated discharge place: home A total of 30 minutes was spent on the care of this complex patient more than 50% of the time was spent in counseling and care coordination.
[2018-12-10] MEDS ORDERED: Potassium Replacement Protocol 1 EACH MISC MISCELLANE PRN (11:23)
--- NOTE | 2018-12-10 11:40 | P.PN ---
Subjective Progress Note Date: 12/10/18 Principal diagnosis: Abdominal pain alcohol hepatitis Feels well. Denies abdominal pain. Requesting discharge. Tolerating diet. White count 5. Hemoglobin 12.5. Liver function tests stable total bilirubin 2.2. AST 435. ALT 119. AP 300. Ultrasound abdomen, bile duct within normal limits. No stones. Afebrile. Objective - Vital Signs Vital signs: Vital Signs Temp 98.4 F 12/10/18 07:37 Pulse 115 H 12/10/18 07:37 Resp 16 12/10/18 07:37 BP 138/97 12/10/18 07:37 Pulse Ox 95 12/10/18 07:37 Intake & Output 12/09/18 12/10/18 12/10/18 18:59 06:59 18:59 Intake Total 736 580 Balance 736 580 Intake: Oral 736 580 Other: Voiding Method Toilet # Voids 3 1 1 - Exam General appearance: The patient is alert, oriented, in no acute distress. HET: Head is normocephalic and atraumatic. Pupils are equal and reactive. Oropharynx is clear without lesions. Neck: Supple without lymphadenopathy. Trachea midline. Heart: S1 S2. Regular rate and rhythm. Lungs: No crackles or wheezes are heard. Abdomen: Soft, nontender, nondistended with bowel sounds. No peritoneal signs. No palpable organomegaly or masses. Extremities: Normal skin color and turgor. No cyanosis, rash, ulceration, clubbing, or edema. Radial and pedal pulses are 2/4 bilaterally. Neurological: No focal deficits. Strength and sensation are grossly intact. - Labs CBC & Chem 7: 12/10/18 09:22 12/10/18 09:22 Labs: Abnormal Lab Results - Last 24 Hours (Table) 12/10/18 12/10/18 12/10/18 Range/Units 09:22 09:22 09:22 RBC 3.76 L (3.80-5.40) m/uL MCV 100.5 H (80.0-100.0) fL PT 12.3 H (9.0-12.0) sec INR 1.2 H (<1.2) Potassium 3.3 L (3.5-5.1) mmol/L BUN 4 L (7-17) mg/dL Glucose 158 H (74-99) mg/dL Total Bilirubin 2.2 H (0.2-1.3) mg/dL AST 435 H (14-36) U/L ALT 119 H (9-52) U/L Alkaline Phosphatase 300 H (38-126) U/L Albumin 3.3 L (3.5-5.0) g/dL Assessment and Plan (1) Alcoholic hepatitis Current Visit: Yes Status: Acute Code(s): K70.10 - ALCOHOLIC HEPATITIS WITHOUT ASCITES SNOMED Code(s): 443174386 (2) Abdominal pain Current Visit: Yes Status: Acute Code(s): R10.9 - UNSPECIFIED ABDOMINAL PAIN SNOMED Code(s): 79297585 (3) Alcohol withdrawal Current Visit: Yes Status: Acute Code(s): F10.239 - ALCOHOL DEPENDENCE WITH WITHDRAWAL, UNSPECIFIED SNOMED Code(s): 691815526 (4) Nausea & vomiting Current Visit: Yes Status: Acute Code(s): R11.2 - NAUSEA WITH VOMITING, UNSPECIFIED SNOMED Code(s): 09264360 (5) ETOH abuse Current Visit: Yes Status: Acute Code(s): F10.10 - ALCOHOL ABUSE, UNCOMPLICATED SNOMED Code(s): 62786040 Plan: 1. Agreeable for discharge. Alcohol abstinence restated. Diet as tolerated. Follow up in GI office after discharge. Discharge per medicine. Assessment and plan a care discussed with Dr. Vizcarra
[2018-12-10 12:08] LABS: Platelet Count 85 k/uL (150-450)
[2018-12-10 15:55] LABS: Iron Saturation 96.63 (12.00-45.00)
[2018-12-10 16:20] LABS: Folate, Serum >24.0 ng/mL
[2018-12-10] MEDS: FAMOTIDINE 20 MG TAB PO SCH (20:28)
[2018-12-11 05:29] VITALS: BP 142/89; PULSE 79; RESP 20; TEMP 98.5
[2018-12-11] MEDS: FLUTICASONE 50MCG/SPRAY NASAL 16GM EA NOSTRIL SCH (08:28)
[2018-12-11] MEDS: THIAMINE 100 MG TAB PO SCH (08:28)
[2018-12-11] MEDS: ENOXAPARIN 40 MG/0.4 ML SYRINGE SQ SCH (08:28)
[2018-12-11] MEDS: LORazepam 1 MG TAB PO SCH (08:28)
[2018-12-11] MEDS: LORATADINE 10 MG TAB PO SCH (08:29)
[2018-12-11] MEDS: PANTOPRAZOLE 40 MG TABLET PO SCH (08:29)
[2018-12-11] MEDS: FOLIC ACID 1 MG TAB PO SCH (08:29)
[2018-12-11 10:32] LABS: HCT 38.2 % (34.0-46.0); HGB 12.2 gm/dL (11.4-16.0); MCH 32.5 pg (25.0-35.0); MCV 101.7 fL (80.0-100.0); Macrocytosis Slight; Mean Platelet Volume 11.4; RBC 3.76 m/uL (3.80-5.40); RDW 14.4 % (11.5-15.5); WBC 6.5 k/uL (3.8-10.6)
[2018-12-11 10:37] LABS: Platelet Count 62 k/uL (150-450)
[2018-12-11 10:41] LABS: ALT 102 U/L (9-52); AST 286 U/L (14-36); African American GFR (CKD) >90 (>60 ml/min/1.73 sqM); Albumin 3.4 g/dL (3.5-5.0); Alkaline Phosphatase 259 U/L (38-126); Anion Gap 7 mmol/L; Blood Urea Nitrogen 5 mg/dL (7-17); Calcium 8.6 mg/dL (8.4-10.2); Carbon Dioxide 30 mmol/L (22-30); Chloride 103 mmol/L (98-107); Glucose 150 mg/dL (74-99); Magnesium 1.8 mg/dL (1.6-2.3); Potassium 3.6 mmol/L (3.5-5.1); Sodium 140 mmol/L (137-145); Total Bilirubin 2.1 mg/dL (0.2-1.3)
--- NOTE | 2018-12-11 12:23 | P.DS ---
Providers Date of admission: 12/10/18 13:35 Expected date of discharge: 12/11/18 Attending physician: Kellen Vasquez DO Consults: 12/08/18 16:04 Consult Physician Routine Consulting Provider: Oleg Nieto Consult Reason/Comments: alcoholic hepatitis Do you want consulting provider notified?: Yes Primary care physician: Physician Nonstaff Hospital Course: Discharge Diagnosis: Alcohol withdrawal Alcoholic hepatitis with hepatic steatosis and severe hepatomegally Elevated ferritin levels with concerns for hemachromatosis GERD Chronic sinusitis Hypokalemia Thrombocytopenia Depression Insomnia Heterogeneous endometrium Hospital Course: Patient is a 38-year-old female with a past medical history of h ypertension, panic attacks, and alcohol abuse who presented to the ER with complaints of alcohol withdrawal, abdominal pain, and chronic headaches. In the ER she underwent an extensive evaluation. On arrival she was found to be tachycardic with heart rate of 104 and a blood pressure of 141/96. Initial laboratory analysis showed an elevated AST at 603, ALT 143, total bilirubin 2.2. She was also found have an anion gap metabolic acidosis with a carbon dioxide of 28 and anion gap of 17. Her alcohol level was elevated at 223. Urinalysis did not demonstrate any evidence of urinary tract infection. She underwent a CT abdomen and pelvis which showed hepatomegaly with findings suggestive of hepatic steatosis, nonspecific gas pattern with no evidence of obstruction but colonic wall thickening, diverticulosis, and slightly lobulated uterine body with possible fibroid and heterogeneous endometrium. She was admitted for further management of her alcohol withdrawal and alcoholic hepatitis. She was started on IV fluids and CIWA protocol. She was a history of severe alcohol withdrawals proximately 2 years prior. She is also been having issues with chronic sinusitis. On the morning of 12/09 her withdrawal symptoms had worsened and fixed dose of Ativan was admitted to the CIWA protocol. She had some improvement by the morning of 12/10. Her ferritin level came back elevated at 2765. She did have low platelets but completely asymptomatic and felt to be due to liver disease with anticipated recovery. She was determined stable for discharge home. She was given instructions on the importance of following up with a business development executive regarding her elevated ferritin levels. She was given a prescription for Ativan to use as needed for withdrawal. We discussed in detail the risks of overdosing his combine Ativan with alcohol including . She also has a prescription for naltrexone already at home which she will start taking to help decrease cravings. She is planning on following up with her PCP and psychiatrist in 1 week. She will call [facility] hepatology for appointment. Patient seen and examined at bedside. No chest pain, SOB, abnormal bruising or bleeding, no abdominal bloating. Vital signs reviewed and stable. General: non toxic, no distress, appears at stated age Derm: warm, dry Head: atraumatic, normocephalic, symmetric Eyes: EOMI, no lid lag, anicteric sclera Mouth: no lip lesion, mucus membranes moist Cardiovascular: S1S2 reg, no murmur, positive posterior tibial pulse bilateral, Lungs: CTA bilateral, no rhonchi, no rales , no accessory muscle use Abdominal: soft, nontender to palpation, no guarding, no appreciable organomegaly Ext: no gross muscle atrophy, no edema, no contractures Neuro: CN II-XI grossly intact, no focal neuro deficits Psych: Alert, oriented, appropriate affect A total of 35 minutes of time were spent preparing this complex discharge summary . Patient Condition at Discharge: Fair Plan - Discharge Summary Discharge Rx Participant: No New Discharge Prescriptions: New LORazepam [Ativan] 0.5 mg PO TID PRN 3 Days #100 tab PRN Reason: Alcohol Withdrawal Loratadine [Claritin] 10 mg PO DAILY tab Fluticasone Nasal [place] [Flonase Nasal [place]] 2 spray EA NOSTRIL DAILY #1 bottle Famotidine [Pepcid] 20 mg PO HS #30 tab Pantoprazole [Protonix] 40 mg PO AC-BID #60 tablet. Continue Citalopram Hydrobromide [CeleXA] 40 mg PO DAILY Atenolol 100 mg PO DAILY Ibuprofen [Motrin Ib] 200 mg PO Q6H PRN PRN Reason: Pain Discharge Medication List Atenolol 100 mg PO DAILY 12/08/18 [History] Citalopram Hydrobromide [CeleXA] 40 mg PO DAILY 12/08/18 [History] Ibuprofen [Motrin Ib] 200 mg PO Q6H PRN 12/08/18 [History] Famotidine [Pepcid] 20 mg PO HS #30 tab 12/11/18 [Rx] Fluticasone Nasal [place] [Flonase Nasal [place]] 2 spray EA NOSTRIL DAILY #1 bottle 12/11/18 [Rx] LORazepam [Ativan] 0.5 mg PO TID PRN 3 Days #100 tab 12/11/18 [Rx] Loratadine [Claritin] 10 mg PO DAILY tab 12/11/18 [Rx] Pantoprazole [Protonix] 40 mg PO AC-BID #60 tablet. 12/11/18 [Rx] Follow up Appointment(s)/Referral(s): Nonstaff,Physician [Primary Care Provider] - 1-2 days Oleg Nieto MD [STAFF PHYSICIAN] - 01/01/19 9:00 am Patient Instructions/Handouts: Abuse of Alcohol (DC), Alcohol Withdrawal (DC), Alcoholic Hepatitis (DC) Activity/Diet/Wound Care/Special Instructions: Colette Garduno MD [address], [address], [place] [address]
== END 2018-12-11 12:23 | disposition home or self-care (01) | DRG 433 ==
LOC: EC 06:56 → 4SSUR 10:03 → OBSVTOIN 12-10 13:35 → 4MS4W 12-10 15:32
PROVIDERS: ADMIT Internal Medicine; ATTEND Internal Medicine
DX: K70.10 Alcoholic hepatitis without ascites (principal); F10.239 Alcohol dependence with withdrawal, unspecified; E87.2 Acidosis; R44.0 Auditory hallucinations; F10.231 Alcohol dependence with withdrawal delirium; D64.9 Anemia, unspecified; D69.6 Thrombocytopenia, unspecified; E11.9 Type 2 diabetes mellitus without complications; E87.6 Hypokalemia; F32.9 Major depressive disorder, single episode, unspecified; G47.00 Insomnia, unspecified; G89.29 Other chronic pain; I10 Essential (primary) hypertension; F41.9 Anxiety disorder, unspecified; Y90.7 Blood alcohol level of 200-239 mg/100 ml; R13.10 Dysphagia, unspecified; N85.8 Other specified noninflammatory disorders of uterus; K76.0 Fatty (change of) liver, not elsewhere classified; R44.1 Visual hallucinations; Z87.891 Personal history of nicotine dependence; Z83.3 Family history of diabetes mellitus; Z82.49 Family history of ischemic heart disease and other diseases of the circulatory system; Z79.899 Other long term (current) drug therapy; Z90.89 Acquired absence of other organs
CPT/HCPCS: 36415; 70486; 74177; 76700; 80053; 80074; 80320; 81001; 81025; 82150; 82607; 82728; 82746; 83540; 83550; 83690; 83735; 84132; 84443; 85025; 85027; 85610; 96361; 96365; 96372; 96375; 96376; 99285

== ENCOUNTER → 2019-05-17 | Outpatient (CLI) | payer OTHER ==
--- NOTE | 2019-05-17 10:07 | US ---
EXAMINATION TYPE: US abdomen complete DATE OF EXAM: 05/17/2019 COMPARISON: US 12/10/2018 CLINICAL HISTORY: R74.8 Elevated liver enzymes. EXAM MEASUREMENTS: Liver Length: 14.0 cm Gallbladder Wall: 0.2 cm CBD: 0.4 cm Spleen: 11.2 cm Right Kidney: 11.1 x 4.7 x 5.4 cm Left Kidney: 12.4 x 6.7 x 6.1 cm Pancreas: visualized portions wnl. Tail is obscured by bowel gas. Liver: There is increased echogenicity of the hepatic parenchyma with diminished visualization of th e portal triads most commonly relating to hepatic steatosis and limiting evaluation for underlying he patic masses. Gallbladder: No stones seen Evidence for sonographic Boone's sign: No CBD: wnl Spleen: wnl Right Kidney: No hydronephrosis or masses seen Left Kidney: No hydronephrosis or masses seen Upper IVC: wnl Abd Aorta: wnl The intrahepatic portion of the IVC and proximal abdominal aorta are within normal limits. There is no evidence of cholelithiasis. Common bile duct is unremarkable. The visualized portions of the perry creas are homogenous. The spleen is unremarkable. Kidneys are symmetric and free of hydronephrosis. No renal lesions are seen. IMPRESSION: Sonographic findings most commonly related to hepatic steatosis as seen on the prior ultr asound.
== END | disposition home or self-care (01) ==
LOC: RADUSWWP 07:46
PROVIDERS: ATTEND Family Medicine
DX: K76.0 Fatty (change of) liver, not elsewhere classified (principal)
CPT/HCPCS: 76700

== ENCOUNTER → 2020-03-16 | Outpatient (CLI) | payer BC ==
--- NOTE | 2020-03-16 12:44 | CT ---
EXAMINATION TYPE: CT sinus wo con DATE OF EXAM: 03/16/2020 COMPARISON: 12/08/2018 HISTORY: Chronic sinusitis CT DLP: 556.9 mGycm. Automated Exposure Control for Dose Reduction was Utilized. TECHNIQUE: CT scan of the sinuses is performed without contrast, axial images are obtained, coronal r eformatted images are also reviewed. FINDINGS: The paranasal sinuses including the frontal, ethmoid, sphenoid, and maxillary sinuses bila terally are well-aerated without abnormal opacification. There are multiple mucous retention cyst or polyp seen within the maxillary sinuses bilaterally are similar in appearance to prior exam. No air- fluid levels. Postsurgical changes are noted with the ostium of the maxillary sinus widely patent. Na sukumar septal deviation noted. Visualized portion of mastoid air cells show no abnormal opacification. The globes are intact bilate rally. IMPRESSION: 1. Bilateral small mucous retention cyst or maxillary sinus polyps similar in appearance to prior exa m with no evidence of new mucosal thickening, air-fluid level, or occlusion of the ostium of the maxi llary sinus. 2. Nasal septal deviation.
== END | disposition home or self-care (01) ==
LOC: RADCTMAIN 12:15
PROVIDERS: ATTEND Otolaryngology
DX: J34.2 Deviated nasal septum (principal); J32.0 Chronic maxillary sinusitis
CPT/HCPCS: 70486

== ENCOUNTER 2020-06-07 11:23 | Inpatient (IN) | payer BC, OTHER ==
[2020-06-07] MEDS ORDERED: LORazepam 2 MG/ML INJ IV PRN ×2 (11:45→15:49)
[2020-06-07] MEDS ORDERED: LORazepam 2 MG/ML INJ IV STA ×2 (11:45→14:38)
[2020-06-07] MEDS ORDERED: ONDANSETRON 4 MG/2 ML VIAL IVP STA (11:46)
[2020-06-07] MEDS ORDERED: SODIUM CHLORIDE 0.9% 500 ML 500 ML IV ONE (11:46)
[2020-06-07] MEDS ORDERED: SODIUM CHLORIDE 0.9% 1,000 ML with MVI, ADULT NO.4 WITH VIT K 10 ML, THIAMINE 100 MG, F... IV ONE ×4 (11:46)
--- NOTE | 2020-06-07 11:55 | ED ---
General Adult HPI - General Chief complaint: Recheck/Abnormal Lab/Rx Stated complaint: EPS eval Time Seen by Provider: 06/07/20 11:36 Source: patient, RN notes reviewed Mode of arrival: ambulatory Limitations: no limitations - History of Present Illness Initial comments: This a 40-year-old female presents emergency Department with chief complaint of alcohol withdrawal. Patient states that she started drinking again around [place] time states that she was drinking a half a fifth daily. Patient states she's that she could stop drinking 4 days ago states she she has not having to drink states she's been shaking severely she's had nausea vomiting and she's been hallucinating. She states that she was hallucinating that her neighbors were doing things no she called the police today. Patient states the police brought him here for evaluation she is not depressed or suicidal. She has gone to severe all withdrawn the past. She states that she has delirium related to withdrawal as she has experienced this in the past. - Related Data Home Medications Medication Instructions Recorded Confirmed Citalopram Hydrobromide [CeleXA] 40 mg PO DAILY 12/08/18 12/08/18 Ibuprofen [Motrin Ib] 200 mg PO Q6H PRN 12/08/18 12/08/18 atenoloL [Atenolol] 100 mg PO DAILY 12/08/18 12/08/18 Previous Rx's Medication Instructions Recorded Famotidine [Pepcid] 20 mg PO HS #30 tab 12/11/18 Fluticasone Nasal [place] [Flonase 2 spray EA NOSTRIL DAILY #1 bottle 12/11/18 Nasal [place]] LORazepam [Ativan] 0.5 mg PO TID PRN 3 Days #100 tab 12/11/18 Loratadine [Claritin] 10 mg PO DAILY tab 12/11/18 Pantoprazole [Protonix] 40 mg PO AC-BID #60 tablet. 12/11/18 Allergies Allergy/AdvReac Type Severity Reaction Status Date / Time No Known Allergies Allergy Verified 06/07/20 11:31 Review of Systems ROS Statement: Those systems with pertinent positive or pertinent negative responses have been documented in the HPI. ROS Other: All systems not noted in ROS Statement are negative. Past Medical History Past Medical History: Hypertension, Liver Disease History of Any Multi-Drug Resistant Organisms: None Reported Past Surgical History: Adenoidectomy, Tonsillectomy Additional Past Surgical History / Comment(s): Removal of sinus polyp, removal of embedded IUD Past Anesthesia/Blood Transfusion Reactions: No Reported Reaction Past Psychological History: Anxiety Smoking Status: Never smoker Past Alcohol Use History: Abuse, Heavy Past Drug Use History: None Reported - Past Family History Mother Family Medical History: Diabetes Mellitus Father Family Medical History: Coronary Artery Disease (CAD), Hypertension Brother(s) Additional Family Medical History / Comment(s): bicuspid aortic valve General Exam Limitations: no limitations General appearance: alert, in no apparent distress, other (Patient is shaky in the room) Head exam: Present: atraumatic, normocephalic, normal inspection Eye exam: Present: normal appearance, PERRL, EOMI. Absent: scleral icterus, conjunctival injection, periorbital swelling ENT exam: Present: normal exam, normal oropharynx, mucous membranes moist Neck exam: Present: normal inspection. Absent: tenderness, meningismus, lymphadenopathy Respiratory exam: Present: normal lung sounds bilaterally. Absent: respiratory distress, wheezes, rales, rhonchi, stridor Cardiovascular Exam: Present: normal rhythm, tachycardia, normal heart sounds. Absent: systolic murmur, diastolic murmur, rubs, gallop, clicks GI/Abdominal exam: Present: soft, normal bowel sounds. Absent: distended, tenderness, guarding, rebound, rigid Neurological exam: Present: alert, oriented X3 Skin exam: Present: warm, dry, intact, normal color. Absent: rash Course Vital Signs 06/07/20 06/07/20 06/07/20 11:31 12:38 13:13 Temperature 98.8 F Pulse Rate 108 H 141 H 110 H Respiratory 18 18 18 Rate Blood Pressure 179/99 191/132 149/90 O2 Sat by Pulse 98 98 94 L Oximetry 06/07/20 13:36 Temperature Pulse Rate 115 H Respiratory 18 Rate Blood Pressure 140/79 O2 Sat by Pulse 96 Oximetry Medical Decision Making - Lab Data Result diagrams: 06/07/20 12:29 06/07/20 12:29 Lab Results 06/07/20 06/07/20 06/07/20 Range/Units 12:29 12:29 12:29 WBC 15.3 H (3.8-10.6) k/uL RBC 4.18 (3.80-5.40) m/uL Hgb 14.5 (11.4-16.0) gm/dL Hct 42.7 (34.0-46.0) % MCV 102.2 H (80.0-100.0) fL MCH 34.7 (25.0-35.0) pg MCHC 34.0 (31.0-37.0) g/dL RDW 12.9 (11.5-15.5) % Plt Count 195 (150-450) k/uL MPV 10.6 Neutrophils % 77 % Lymphocytes % 15 % Monocytes % 4 % Eosinophils % 0 % Basophils % 1 % Neutrophils # 11.8 H (1.3-7.7) k/uL Lymphocytes # 2.3 (1.0-4.8) k/uL Monocytes # 0.6 (0-1.0) k/uL Eosinophils # 0.1 (0-0.7) k/uL Basophils # 0.2 (0-0.2) k/uL Macrocytosis Slight Sodium 141 (137-145) mmol/L Potassium 4.0 (3.5-5.1) mmol/L Chloride 102 (98-107) mmol/L Carbon Dioxide 12 L (22-30) mmol/L Anion Gap 27 mmol/L BUN 14 (7-17) mg/dL Creatinine 1.46 H (0.52-1.04) mg/dL Est GFR (CKD-EPI)AfAm 52 (>60 ml/min/1.73 sqM) Est GFR (CKD-EPI)NonAf 45 (>60 ml/min/1.73 sqM) Glucose 153 H (74-99) mg/dL Plasma Lactic Acid Coleman 11.7 H* (0.7-2.0) mmol/L Calcium 10.5 H (8.4-10.2) mg/dL Magnesium 1.9 (1.6-2.3) mg/dL Total Bilirubin 1.7 H (0.2-1.3) mg/dL AST 168 H (14-36) U/L ALT 70 H (4-34) U/L Alkaline Phosphatase 245 H (38-126) U/L Total Protein 10.3 H (6.3-8.2) g/dL Albumin 5.6 H (3.5-5.0) g/dL Lipase 473 H (23-300) U/L Serum Alcohol <10 mg/dL Critical Care Time Critical Care Time: Yes Total Critical Care Time: 35 Critical Care Time: 35 minutes of critical care time use initially evaluated patient, ordering labs, fluids, medications. Patient was started on CIWA and Ativan protocol. Patient was given multiple doses of Ativan. Patient has severe DTs, alcohol withdrawal with severe left gas doses related to dehydration, alcohol use. Patient will be admitted to hospital for further monitoring. [facility] was contacted. Disposition Clinical Impression: Alcoholic hepatitis, Nausea & vomiting, Lactic acidosis, Alcohol withdrawal with delirium Disposition: ADMITTED IP TO THIS HOSP Condition: Serious Referrals: Larissa Patricia MD [Primary Care Provider] - 1-2 days
[2020-06-07 12:40] LABS: Basophils # (A) 0.2 k/uL (0-0.2); Basophils % (A) 1 %; Eosinophils # (A) 0.1 k/uL (0-0.7); Eosinophils % (A) 0 %; HCT 42.7 % (34.0-46.0); HGB 14.5 gm/dL (11.4-16.0); Lymphocytes # (A) 2.3 k/uL (1.0-4.8); Lymphocytes % (A) 15 %; MCH 34.7 pg (25.0-35.0); MCV 102.2 fL (80.0-100.0); Macrocytosis Slight; Mean Platelet Volume 10.6; Monocytes # (A) 0.6 k/uL (0-1.0); Monocytes % (A) 4 %; Neutrophils # (A) 11.8 k/uL (1.3-7.7); Neutrophils % (A) 77 %; Platelet Count 195 k/uL (150-450); RBC 4.18 m/uL (3.80-5.40); RDW 12.9 % (11.5-15.5); WBC 15.3 k/uL (3.8-10.6)
[2020-06-07 12:52] LABS: ALT 70 U/L (4-34); AST 168 U/L (14-36); African American GFR (CKD) 52 (>60 ml/min/1.73 sqM); Albumin 5.6 g/dL (3.5-5.0); Alcohol <10 mg/dL; Alkaline Phosphatase 245 U/L (38-126); Anion Gap 27 mmol/L; Blood Urea Nitrogen 14 mg/dL (7-17); Calcium 10.5 mg/dL (8.4-10.2); Carbon Dioxide 12 mmol/L (22-30); Chloride 102 mmol/L (98-107); Glucose 153 mg/dL (74-99); Lipase 473 U/L (23-300); Non-African American GFR(CKD) 45 (>60 ml/min/1.73 sqM); Sodium 141 mmol/L (137-145); Total Bilirubin 1.7 mg/dL (0.2-1.3); Total Protein 10.3 g/dL (6.3-8.2)
[2020-06-07] MEDS: LORazepam 2 MG/ML INJ IV PRN ×7 (12:57→16:09)
[2020-06-07] MEDS ORDERED: SODIUM CHLORIDE 0.9% 2,000 ML IV ONE (13:02)
[2020-06-07 13:08] LABS: Magnesium 1.9 mg/dL (1.6-2.3)
[2020-06-07 13:52] LABS: Appearance,Urine Turbid (Clear); Bacteria,Urine Occasional /hpf; Bilirubin,Urine Negative (Negative); Blood,Urine Negative (Negative); Color,Urine Yellow; Glucose,Urine (UA) Negative (Negative); Hyaline Casts,Urine 16 /lpf (0-2); Ketones,Urine Negative (Negative); Leukocyte Esterase,Urine Trace (Negative); Mucus,Urine Rare /hpf; Nitrite,Urine Negative (Negative); Protein,Urine 1+ (Negative); RBC,Urine 3 /hpf (0-5); Specific Gravity,Urine 1.013 (1.001-1.035); Squamous Epithelial Cell,Urine 64 /hpf (0-4); Urobilinogen,Urine <2.0 mg/dL (<2.0); WBC,Urine 3 /hpf (0-5)
[2020-06-07] MEDS ORDERED: NALOXONE 0.4 MG/ML 1 ML VIAL IV PRN (13:54)
[2020-06-07] MEDS ORDERED: ONDANSETRON 4 MG/2 ML VIAL IVP PRN (13:57)
[2020-06-07 14:00] LABS: Amphetamine Screen,Urine Not Detected (NotDetected); Barbiturate Screen,Urine Not Detected (NotDetected); Benzodiazepines Screen,Urine Detected (NotDetected); Cocaine Screen,Urine Not Detected (NotDetected); Methadone Screen, Urine Not Detected (NotDetected); Opiate Screen,Urine Not Detected (NotDetected); Oxycodone Screen, Urine Not Detected (NotDetected); Phencyclidine Screen,Urine Not Detected (NotDetected); Tricyclic Antidepressant,Urine Not Detected (NotDetected); Urn Cannabinoid Scrn Not Detected (NotDetected)
[2020-06-07] MEDS: HALOPERIDOL LACTATE 5 MG/ML 1 ML VIAL IVP PRN ×2 (16:09→20:46)
[2020-06-07] MEDS: PANTOPRAZOLE 40 MG/10 ML VIAL IV SCH (17:11)
--- NOTE | 2020-06-07 18:08 | CONS ---
CONSULTATION PULMONARY/CRITICAL CARE CONSULTATION: DATE OF SERVICE: 06/07/2020 Alcohol withdrawal syndrome. 40-year-old female who apparently was brought into the emergency department with the chief complaints of alcohol withdrawal. The patient apparently started drinking again around [place] time. She drinks apparently half a 5th a day or more. She drinks wine, beer and liquor. She apparently stopped drinking four days ago. The patient came in with severe agitation, tremors, shaking, nausea, vomiting, hallucinosis and is going through actual alcohol withdrawal at this current time. The patient is brought into the emergency room where she was evaluated and I accepted the patient into the ICU. She would be definitely too hard to manage on the general medical floor. We start her on Ativan per the [facility] protocol. We have also given her some IV Haldol to settle her down. The patient is very confused and disoriented. The patient is speaking gibberish. Really does not give much of a history. Most of the history and information is obtained from the ER physician and the ER johnny. HOME MEDICATIONS: Apparently include Celexa, Motrin, atenolol, Pepcid Flonase nasal spray, Ativan, Claritin, Protonix. ALLERGIES: Denied. MEDICAL HISTORY: Includes alcoholic liver disease and hypertension. She also has a history of chronic anxiety. SURGICAL HISTORY: Includes tonsillectomy, adenoidectomy, polyp removal from the sinuses, and removal of an embedded IUD. SOCIAL HISTORY: Negative for tobacco use. She does drink alcohol heavily and does drink daily. It is unclear to me as to how much she actually does drink. She does drink liquor, wine and beer. She stopped drinking 3 or 4 days ago. She denies illicit drug use. Drug screen was positive for benzodiazepines but apparently she takes Ativan at home. FAMILY HISTORY: Positive for mother with diabetes and a father with CAD and hypertension. She has a brother with a bicuspid aortic valve. REVIEW OF SYSTEMS: Is unreliable. Cannot get any additional information from this patient at this time. PHYSICAL EXAMINATION: VITAL SIGNS: Current vital signs are reviewed. Temperature is 100.9, heart rate 120, respiratory rate in the mid 30s, blood pressure 134/83, mean 100 and saturations are 97% on a couple of liters. Appears quite confused and agitated. She is disoriented. Not really making much sense. HEENT: Examination is grossly unremarkable. Nasal O2 in place. NECK: Supple. Full range of motion. No adenopathy or thyromegaly. Neck veins are flat. CARDIOVASCULAR: Examination reveals tachycardia. It is regular. S1, S2 normal. Heart sounds are distant. LUNGS: Mostly clear. A few scattered rhonchi. No wheezes or crackles. ABDOMEN: Soft. Bowel sounds are noted. No masses or tenderness. EXTREMITIES are intact. No cyanosis, clubbing, or edema. SKIN: Without rash. NEUROLOGIC: Examination is difficult to assess. She is actively withdrawing from alcohol. She is confused and disoriented. She is very agitated. She does move all four extremities. LABS: Reviewed. White count 15.3, hemoglobin 14.5, hematocrit 42.7, platelet count 195,000. Sodium 141, potassium chloride 4, chloride 102, CO2 12, anion gap 27. BUN and creatinine were 14 and 1.46. Glucose 153. Lactic acid was 11.7, repeat was 3.8. Calcium 10.5, magnesium 1.9, bilirubin 1.7, AST 168, ALT 70, alkaline phosphatase 245, total protein 10.3, lipase 473 and albumin is 5.6. Urine is turbid and yellow. There is 1+ protein. Trace leukocyte esterase. Occasional bacteria. 3 WBCs. Drug screen was positive for benzodiazepines. Alcohol level was normal. Microbiology is negative. No chest x-ray. Medications are reviewed. The patient is on Haldol 8 mg every 2 hours, Ativan via CIWA protocol, Narcan, Zofran, Protonix, and saline IV with thiamine and folic acid at 150 mL an hour. ASSESSMENT: 1. Acute alcohol withdrawal syndrome with possible delirium tremens. 2. History of hypertension. 3. History of chronic liver disease. 4. Alcoholic liver disease. 5. Chronic alcohol abuse. 6. Mild alcoholic pancreatitis. 7. Rule out urinary tract infection. PLAN: The patient will be given Rocephin. Additional recommendations and suggestions are forthcoming. The patient will be treated with both Ativan and Haldol. If that does not work we will try some dexmedetomidine. Additional recommendations and suggestions are forthcoming. Prognosis is guarded. She does have GI prophylaxis. Additional recommendations and suggestions are forthcoming. MMODL / IJN: [id number] /
[2020-06-07] MEDS ORDERED: HYDROcodone/APAP 5-325MG 1 EACH TAB PO PRN (18:14)
[2020-06-07 18:33] LABS: INR 1.2 (<1.2); Prothrombin Time 12.4 sec (9.0-12.0)
[2020-06-07 18:46] LABS: Lactic Acid, Venous 0.7 mmol/L (0.7-2.0)
--- NOTE | 2020-06-07 19:05 | HP ---
HISTORY AND PHYSICAL DATE OF SERVICE: 06/07/2020. CHIEF COMPLAINTS: Severe alcohol withdrawal symptoms. HISTORY OF PRESENT ILLNESS: This 40-year-old woman with a past medical history of multiple medical problems including history of hypertension, history of liver disease, history EtOH being followed by Dr. Larissa Patricia in the outpatient setting, was apparently heavy drinking around the [place] time. She was drinking almost a half a 5th daily and the patient stopped drinking about 4 days ago and the patient was trying to detox herself. The patient became progressively agitated, confused, some nausea, vomiting, and hallucinations. The patient was taken to [facility] and was admitted for further evaluation. Patient had significant agitations and features of delirium tremens. The patient was given multiple doses of Ativan 6 mg and multiple doses of Haldol IV and the patient was transferred to ICU and is being sedated at this time. There is no history of any fever, rigor or chills. A detailed history cannot be taken from the patient. The patient apparently had elevated lactic acid also. The patient also had features of alcoholic hepatitis as well. The patient unable to give any coherent history. The patient is sedated in the ICU. Most of the history is taken from my discussion with the ER physician, discussion with staff and review of the chart at this time. PAST MEDICAL HISTORY: History of alcoholism, hypertension, liver disease. MEDICATIONS: Home medications are: Buspirone 10 mg p.o. t.i.d., Nasacort, Bactrim DS, Paxil. ALLERGIES: None. FAMILY HISTORY: History of diabetes, bicuspid aortic valve. SOCIAL HISTORY: History of alcohol as mentioned earlier. No history of smoking. REVIEW OF SYSTEMS: Could not be taken. The patient has change in mental status. PHYSICAL EXAMINATION: Patient is sedated. Pulse is 101. Blood pressure 148/90, respirations 21. Temperature 97.8, pulse ox 98% on room air. HEENT: Conjunctivae normal. NECK: No JVD. CARDIOVASCULAR: S1, S2. RESPIRATORY: Breath sounds diminished in the bases. No rhonchi. No crackles. ABDOMEN: Soft, nontender. No mass palpable. LEGS: No edema, no swelling. NERVOUS SYSTEM: Could not be taken. SKIN: No ulcers, no rashes and no bleeding. JOINTS: No active deforming arthropathy. Lymphatics: No lymph nodes palpable in the neck, axillae or groin. LABS: WBC 15.3. MCV 102, and CO2 is 12. Creatinine is 1.46 and total bilirubin is 1.7. AST is 168, ALT 70, total protein is 10.3, albumin is 5.6 and lipase is 473. ASSESSMENT: 1. Acute alcohol withdrawal and as well as acute delirium tremens. 2. Change in mental status metabolic encephalopathy from delirium tremens and alcoholic withdrawal. 3. Hypertension. 4. History of chronic liver disease. 5. History of adenoidectomy. 6. History of anxiety. 7. Acute alcoholic hepatitis. 8. Acute renal failure possibly prerenal acute tubular necrosis. 9. Metabolic acidosis. 10.Lactic acidosis. 11.Elevated AST, ALT, alkaline phosphatase. 12.Elevated lipase. 13.FULL CODE. RECOMMENDATION AND DISCUSSION: This 40-year-old woman who presented with multiple complex medical issues, we will monitor the patient closely, continue the current management and treatment. Otherwise I would recommend a chest x-ray and broad-spectrum IV antibiotics. I recommended blood cultures. Repeat lactic acid, repeat labs. [facility] protocol. [email or web address] Milian. Closely follow with Dr. Fernandez for ICU management. The patient is oxygen saturating satisfactorily at this time but we will continue to monitor. Further recommendations to follow. A copy of dictation being forwarded to Dr. Larissa Patricia, who is the primary physician. Social work consultation to arrange for alcohol rehab. MMODL / IJN: [id number] /
[2020-06-07] MEDS: HEPARIN SODIUM,PORCINE 5,000 UNIT/ML 1 ML VIAL SQ SCH (20:46)
[2020-06-07] MEDS: busPIRone HCl 10 MG TAB PO SCH (23:06)
[2020-06-08 03:47] LABS: INR 1.2 (<1.2); Prothrombin Time 11.8 sec (9.0-12.0)
[2020-06-08 03:50] LABS: Basophils % (A) 0 %; Eosinophils # (A) 0.1 k/uL (0-0.7); Eosinophils % (A) 2 %; HCT 33.7 % (34.0-46.0); Lymphocytes # (A) 1.7 k/uL (1.0-4.8); Lymphocytes % (A) 31 %; MCH 33.3 pg (25.0-35.0); MCHC 31.9 g/dL (31.0-37.0); MCV 104.3 fL (80.0-100.0); Macrocytosis Slight; Monocytes # (A) 0.2 k/uL (0-1.0); Monocytes % (A) 5 %; Neutrophils # (A) 3.1 k/uL (1.3-7.7); Neutrophils % (A) 58 %; Platelet Count 109 k/uL (150-450); RBC 3.23 m/uL (3.80-5.40); RDW 13.4 % (11.5-15.5); WBC 5.4 k/uL (3.8-10.6)
[2020-06-08 03:56] LABS: ALT 56 U/L (4-34); AST 108 U/L (14-36); African American GFR (CKD) >90 (>60 ml/min/1.73 sqM); Albumin 3.6 g/dL (3.5-5.0); Alkaline Phosphatase 147 U/L (38-126); Anion Gap 9 mmol/L; Blood Urea Nitrogen 11 mg/dL (7-17); Calcium 7.9 mg/dL (8.4-10.2); Carbon Dioxide 19 mmol/L (22-30); Chloride 111 mmol/L (98-107); Glucose 68 mg/dL (74-99); Non-African American GFR(CKD) >90 (>60 ml/min/1.73 sqM); Potassium 2.8 mmol/L (3.5-5.1); Sodium 139 mmol/L (137-145); Total Bilirubin 1.1 mg/dL (0.2-1.3); Total Protein 6.8 g/dL (6.3-8.2)
[2020-06-08 03:57] LABS: HGB 10.8 gm/dL (11.4-16.0)
[2020-06-08] MEDS: HALOPERIDOL LACTATE 5 MG/ML 1 ML VIAL IVP PRN (04:58)
[2020-06-08] MEDS: POTASSIUM CHLORIDE ER 20 MEQ TAB.ER PO SCH ×3 (06:54→09:04)
--- NOTE | 2020-06-08 07:25 | XR ---
EXAMINATION TYPE: XR chest 1V portable DATE OF EXAM: 06/08/2020 Comparison: None Clinical History: 40 year-old female shortness of breath, CHF Findings: Heart upper limits of normal size. Mild interstitial prominence without consolidation or pleural effu familia. Impression: Mild interstitial prominence. If fluid overload state, mild pulmonary vascular congestion is possible . There is no paige pulmonary edema or pleural effusion.
[2020-06-08] MEDS: PARoxetine 10 MG TAB PO SCH (08:08)
[2020-06-08] MEDS: PANTOPRAZOLE 40 MG/10 ML VIAL IV SCH (08:08)
[2020-06-08] MEDS: FLUTICASONE 50MCG/SPRAY NASAL 16GM EA NOSTRIL SCH (08:08)
[2020-06-08] MEDS: HEPARIN SODIUM,PORCINE 5,000 UNIT/ML 1 ML VIAL SQ SCH ×2 (08:08→20:38)
[2020-06-08] MEDS: busPIRone HCl 10 MG TAB PO SCH ×4 (08:08→22:25)
[2020-06-08] MEDS ORDERED: SODIUM CHLORIDE 0.9% 1,000 ML IV SCH (09:00)
--- NOTE | 2020-06-08 12:16 | P.PN ---
Subjective 40-year-old female was admitted for alcohol withdrawals. Patient is being transferred out of ICU although still having significant withdrawals. Patient will be closely monitored on a regular floor. Patient received Haldol which improved with improvement in her symptoms patient is also on Ativan severe diarrhea protocol. Patient has hypokalemia and potassium is being replaced. Patient had leukocytosis which is probably reactive although patient is being treated for sinusitis with the Rocephin and Bactrim was discontinued because of acute renal failure. Patient has a symptomatic bacteriuria for which patient will not require any antibiotics. Constitutional: Denied any fatigue denied any fever. Cardio vascular: denied any chest pain, palpitations Gastrointestinal denied any nausea vomiting Pulmonary: Denied any shortness of breath cough Neurologic denied any new focal deficits All inpatient medications were reviewed and appropriate changes in these medications as dictated in the interval history and assessment and plan. Objective - Vital Signs Vital signs: Vital Signs Temp 98.4 F 06/08/20 09:00 Pulse 84 06/08/20 11:00 Resp 17 06/08/20 11:00 BP 115/65 06/08/20 11:00 Pulse Ox 96 06/08/20 11:00 Intake & Output 06/07/20 06/08/20 06/08/20 18:59 06:59 18:59 Intake Total 750 1750 850 Output Total 1080 578 330 Balance -330 1172 520 Weight 81.647 kg 93.7 kg Intake: IV 1250 300 0.9 NaCl- 800 300 Sodium Chloride 0.9% 1, 450 000 ml @ 150 mls/hr IV . Q6H45M ONE with Mvi, Adult No.4 with Vit K 10 ml with Thiamine 100 mg with Folic Acid 1 mg Rx#: [id number] Intake, IV Titration 750 Amount Sodium Chloride 0.9% 1, 750 000 ml @ 150 mls/hr IV . Q6H45M ONE with Mvi, Adult No.4 with Vit K 10 ml with Thiamine 100 mg with Folic Acid 1 mg Rx#: [id number] Oral 500 550 Output: Urine 1080 578 330 Uretheral (Herrera) 200 Other: Voiding Method Indwelling Catheter Indwelling Catheter Indwelling Catheter - Exam PHYSICAL EXAMINATION: GENERAL: The patient is alert and oriented x3, not in any acute distress. Well developed, well nourished. Patient still has some generalized nonessential tremor HEENT: Pupils are round and equally reacting to light. EOMI. No scleral icterus. No conjunctival pallor. Normocephalic, atraumatic. No pharyngeal erythema. No thyromegaly. CARDIOVASCULAR: S1 and S2 present. No murmurs, rubs, or gallops. PULMONARY: Chest is clear to auscultation, no wheezing or crackles. ABDOMEN: Soft, nontender, nondistended, normoactive bowel sounds. No palpable organomegaly. MUSCULOSKELETAL: No joint swelling or deformity. EXTREMITIES: No cyanosis, clubbing, or pedal edema. NEUROLOGICAL: Gross neurological examination did not reveal any focal deficits. SKIN: No rashes. - Labs CBC & Chem 7: 06/08/20 03:19 06/08/20 03:19 Labs: Abnormal Lab Results - Last 24 Hours (Table) 06/07/20 06/07/20 06/07/20 Range/Units 12:29 12:29 12:29 WBC 15.3 H (3.8-10.6) k/uL RBC (3.80-5.40) m/uL Hgb (11.4-16.0) gm/dL Hct (34.0-46.0) % MCV 102.2 H (80.0-100.0) fL Plt Count (150-450) k/uL Neutrophils # 11.8 H (1.3-7.7) k/uL PT (9.0-12.0) sec INR (<1.2) Potassium (3.5-5.1) mmol/L Chloride (98-107) mmol/L Carbon Dioxide 12 L (22-30) mmol/L Creatinine 1.46 H (0.52-1.04) mg/dL Glucose 153 H (74-99) mg/dL Plasma Lactic Acid Coleman 11.7 H* (0.7-2.0) mmol/L Calcium 10.5 H (8.4-10.2) mg/dL Total Bilirubin 1.7 H (0.2-1.3) mg/dL AST 168 H (14-36) U/L ALT 70 H (4-34) U/L Alkaline Phosphatase 245 H (38-126) U/L Total Protein 10.3 H (6.3-8.2) g/dL Albumin 5.6 H (3.5-5.0) g/dL Lipase 473 H (23-300) U/L Urine Appearance (Clear) Urine Protein (Negative) Ur Leukocyte Esterase (Negative) Ur Squamous Epith Cells (0-4) /hpf Urine Bacteria (None) /hpf Hyaline Casts (0-2) /lpf Urine Mucus (None) /hpf U Benzodiazepines Scrn (NotDetected) 06/07/20 06/07/20 06/07/20 Range/Units 13:36 13:36 14:17 WBC (3.8-10.6) k/uL RBC (3.80-5.40) m/uL Hgb (11.4-16.0) gm/dL Hct (34.0-46.0) % MCV (80.0-100.0) fL Plt Count (150-450) k/uL Neutrophils # (1.3-7.7) k/uL PT (9.0-12.0) sec INR (<1.2) Potassium (3.5-5.1) mmol/L Chloride (98-107) mmol/L Carbon Dioxide (22-30) mmol/L Creatinine (0.52-1.04) mg/dL Glucose (74-99) mg/dL Plasma Lactic Acid Coleman 3.8 H* (0.7-2.0) mmol/L Calcium (8.4-10.2) mg/dL Total Bilirubin (0.2-1.3) mg/dL AST (14-36) U/L ALT (4-34) U/L Alkaline Phosphatase (38-126) U/L Total Protein (6.3-8.2) g/dL Albumin (3.5-5.0) g/dL Lipase (23-300) U/L Urine Appearance Turbid H (Clear) Urine Protein 1+ H (Negative) Ur Leukocyte Esterase Trace H (Negative) Ur Squamous Epith Cells 64 H (0-4) /hpf Urine Bacteria Occasional H (None) /hpf Hyaline Casts 16 H (0-2) /lpf Urine Mucus Rare H (None) /hpf U Benzodiazepines Scrn Detected H (NotDetected) 06/07/20 06/08/20 06/08/20 Range/Units 17:54 03:19 03:19 WBC (3.8-10.6) k/uL RBC 3.23 L (3.80-5.40) m/uL Hgb 10.8 L D (11.4-16.0) gm/dL Hct 33.7 L (34.0-46.0) % MCV 104.3 H (80.0-100.0) fL Plt Count 109 L (150-450) k/uL Neutrophils # (1.3-7.7) k/uL PT 12.4 H (9.0-12.0) sec INR 1.2 H 1.2 H (<1.2) Potassium (3.5-5.1) mmol/L Chloride (98-107) mmol/L Carbon Dioxide (22-30) mmol/L Creatinine (0.52-1.04) mg/dL Glucose (74-99) mg/dL Plasma Lactic Acid Coleman (0.7-2.0) mmol/L Calcium (8.4-10.2) mg/dL Total Bilirubin (0.2-1.3) mg/dL AST (14-36) U/L ALT (4-34) U/L Alkaline Phosphatase (38-126) U/L Total Protein (6.3-8.2) g/dL Albumin (3.5-5.0) g/dL Lipase (23-300) U/L Urine Appearance (Clear) Urine Protein (Negative) Ur Leukocyte Esterase (Negative) Ur Squamous Epith Cells (0-4) /hpf Urine Bacteria (None) /hpf Hyaline Casts (0-2) /lpf Urine Mucus (None) /hpf U Benzodiazepines Scrn (NotDetected) 06/08/20 Range/Units 03:19 WBC (3.8-10.6) k/uL RBC (3.80-5.40) m/uL Hgb (11.4-16.0) gm/dL Hct (34.0-46.0) % MCV (80.0-100.0) fL Plt Count (150-450) k/uL Neutrophils # (1.3-7.7) k/uL PT (9.0-12.0) sec INR (<1.2) Potassium 2.8 L (3.5-5.1) mmol/L Chloride 111 H (98-107) mmol/L Carbon Dioxide 19 L (22-30) mmol/L Creatinine (0.52-1.04) mg/dL Glucose 68 L (74-99) mg/dL Plasma Lactic Acid Coleman (0.7-2.0) mmol/L Calcium 7.9 L (8.4-10.2) mg/dL Total Bilirubin (0.2-1.3) mg/dL AST 108 H (14-36) U/L ALT 56 H (4-34) U/L Alkaline Phosphatase 147 H (38-126) U/L Total Protein (6.3-8.2) g/dL Albumin (3.5-5.0) g/dL Lipase (23-300) U/L Urine Appearance (Clear) Urine Protein (Negative) Ur Leukocyte Esterase (Negative) Ur Squamous Epith Cells (0-4) /hpf Urine Bacteria (None) /hpf Hyaline Casts (0-2) /lpf Urine Mucus (None) /hpf U Benzodiazepines Scrn (NotDetected) Assessment and Plan Plan: -Acute alcohol withdrawal: Continue with withdrawal precautions, Ativan as needed Haldol as needed. -Metabolic encephalopathy secondary to delirium tremens and alcohol withdrawal which improved -Acute renal failure: Secondary to Bactrim which improved continue with IV fluids -Sinusitis and patient is being treated for infectious sinusitis can you with Rocephin, and were discontinued discontinued tomorrow -Metabolic acidosis which resolved -Acute alcoholic hepatitis: Expected to improve cessation of alcohol -Asymptomatic bacteriuria: Doesn't warrant any antibiotics. -Leukocytosis reactive secondary to alcohol withdrawals and improved now. -DVT prophylaxis: Continue with subcutaneous heparin
--- NOTE | 2020-06-08 13:06 | P.PN ---
Subjective Progress Note Date: 06/08/20 Principal diagnosis: Acute alcohol withdrawal This is a 40-year-old female who was admitted yesterday and seen by Dr. Christianson on consultation, patient was admitted with acute symptoms of alcohol withdrawal. Patient was felt to be difficult to manage on the medical floor, hence I see admission was advised by the pulmonary team. Patient remains on Ativan for the CIWA protocol. Seems to be very comfortable today, in no distress, patient is arousable, follows simple instructions, and doing great overall. She is on 2 L nasal cannula, O2 saturations 98%. IV fluid is 0.9 normal saline at 100 mL per hour. Her lactic acid is back to normal today. Patient is still receiving f luids. My plan is to transfer the patient to a regular medical floor and continue the alcohol withdrawal protocol. Objective - Vital Signs Vital signs: Vital Signs Temp 98.4 F 06/08/20 09:00 Pulse 84 06/08/20 11:00 Resp 17 06/08/20 11:00 BP 115/65 06/08/20 11:00 Pulse Ox 96 06/08/20 11:00 Intake & Output 06/07/20 06/08/20 06/08/20 18:59 06:59 18:59 Intake Total 750 1750 850 Output Total 1080 578 330 Balance -330 1172 520 Weight 81.647 kg 93.7 kg Intake: IV 1250 300 0.9 NaCl- 800 300 Sodium Chloride 0.9% 1, 450 000 ml @ 150 mls/hr IV . Q6H45M ONE with Mvi, Adult No.4 with Vit K 10 ml with Thiamine 100 mg with Folic Acid 1 mg Rx#: [id number] Intake, IV Titration 750 Amount Sodium Chloride 0.9% 1, 750 000 ml @ 150 mls/hr IV . Q6H45M ONE with Mvi, Adult No.4 with Vit K 10 ml with Thiamine 100 mg with Folic Acid 1 mg Rx#: [id number] Oral 500 550 Output: Urine 1080 578 330 Uretheral (Herrera) 200 Other: Voiding Method Indwelling Catheter Indwelling Catheter Indwelling Catheter - Exam Physical Exam: Revealed a 40-year-old female in no distress. Head: Atraumatic, normocephalic. HEENT:[Neck is supple.] [No neck masses.] [No thyromegaly.] [No JVD.] Chest: [Clear throughout, no crackles, no rhonchi, no wheezes.] Cardiac Exam: [Normal S1 and S2, no S3 gallop, no murmur.] Abdomen: [Soft, nontender, no megaly, no rebound, no guarding, normal bowel sounds.] Extremities: [No clubbing, no edema, no cyanosis.] Neurological Exam: [No focal neurologic deficit.] Alert and oriented 3. Psychiatric: Normal mood and normal affect and normal mental status examination. Skin: No rashes. - Labs CBC & Chem 7: 06/08/20 03:19 06/08/20 03:19 Labs: Abnormal Lab Results - Last 24 Hours (Table) 06/07/20 06/07/20 06/07/20 Range/Units 13:36 13:36 14:17 RBC (3.80-5.40) m/uL Hgb (11.4-16.0) gm/dL Hct (34.0-46.0) % MCV (80.0-100.0) fL Plt Count (150-450) k/uL PT (9.0-12.0) sec INR (<1.2) Potassium (3.5-5.1) mmol/L Chloride (98-107) mmol/L Carbon Dioxide (22-30) mmol/L Glucose (74-99) mg/dL Plasma Lactic Acid Coleman 3.8 H* (0.7-2.0) mmol/L Calcium (8.4-10.2) mg/dL AST (14-36) U/L ALT (4-34) U/L Alkaline Phosphatase (38-126) U/L Urine Appearance Turbid H (Clear) Urine Protein 1+ H (Negative) Ur Leukocyte Esterase Trace H (Negative) Ur Squamous Epith Cells 64 H (0-4) /hpf Urine Bacteria Occasional H (None) /hpf Hyaline Casts 16 H (0-2) /lpf Urine Mucus Rare H (None) /hpf U Benzodiazepines Scrn Detected H (NotDetected) 06/07/20 06/08/20 06/08/20 Range/Units 17:54 03:19 03:19 RBC 3.23 L (3.80-5.40) m/uL Hgb 10.8 L D (11.4-16.0) gm/dL Hct 33.7 L (34.0-46.0) % MCV 104.3 H (80.0-100.0) fL Plt Count 109 L (150-450) k/uL PT 12.4 H (9.0-12.0) sec INR 1.2 H 1.2 H (<1.2) Potassium (3.5-5.1) mmol/L Chloride (98-107) mmol/L Carbon Dioxide (22-30) mmol/L Glucose (74-99) mg/dL Plasma Lactic Acid Coleman (0.7-2.0) mmol/L Calcium (8.4-10.2) mg/dL AST (14-36) U/L ALT (4-34) U/L Alkaline Phosphatase (38-126) U/L Urine Appearance (Clear) Urine Protein (Negative) Ur Leukocyte Esterase (Negative) Ur Squamous Epith Cells (0-4) /hpf Urine Bacteria (None) /hpf Hyaline Casts (0-2) /lpf Urine Mucus (None) /hpf U Benzodiazepines Scrn (NotDetected) 06/08/20 Range/Units 03:19 RBC (3.80-5.40) m/uL Hgb (11.4-16.0) gm/dL Hct (34.0-46.0) % MCV (80.0-100.0) fL Plt Count (150-450) k/uL PT (9.0-12.0) sec INR (<1.2) Potassium 2.8 L (3.5-5.1) mmol/L Chloride 111 H (98-107) mmol/L Carbon Dioxide 19 L (22-30) mmol/L Glucose 68 L (74-99) mg/dL Plasma Lactic Acid Coleman (0.7-2.0) mmol/L Calcium 7.9 L (8.4-10.2) mg/dL AST 108 H (14-36) U/L ALT 56 H (4-34) U/L Alkaline Phosphatase 147 H (38-126) U/L Urine Appearance (Clear) Urine Protein (Negative) Ur Leukocyte Esterase (Negative) Ur Squamous Epith Cells (0-4) /hpf Urine Bacteria (None) /hpf Hyaline Casts (0-2) /lpf Urine Mucus (None) /hpf U Benzodiazepines Scrn (NotDetected) Assessment and Plan Assessment: Impression: Acute alcohol withdrawal. History of alcohol wasn't. Chronic liver disease secondary to alcohol. Benign essential hypertension. Mild alcoholic pancreatitis. Recommendation: Continue the alcohol withdrawal protocol. Continue Ativan and Haldol. Continue GI prophylaxis. Consider transferring the patient out of the ICU to a regular medical floor today. We will continue to follow. Time with Patient: Less than 30
[2020-06-09] MEDS ORDERED: atenoloL 50 MG TAB PO ONE (04:00)
[2020-06-09 04:18] LABS: Basophils % (A) 1 %; Eosinophils # (A) 0.2 k/uL (0-0.7); Eosinophils % (A) 4 %; HCT 33.2 % (34.0-46.0); HGB 11.3 gm/dL (11.4-16.0); Lymphocytes # (A) 1.3 k/uL (1.0-4.8); Lymphocytes % (A) 30 %; MCH 34.6 pg (25.0-35.0); MCHC 34.1 g/dL (31.0-37.0); MCV 101.6 fL (80.0-100.0); Macrocytosis Slight; Mean Platelet Volume 8.6; Monocytes # (A) 0.3 k/uL (0-1.0); Monocytes % (A) 7 %; Neutrophils # (A) 2.4 k/uL (1.3-7.7); Neutrophils % (A) 55 %; Platelet Count 108 k/uL (150-450); RBC 3.27 m/uL (3.80-5.40); RDW 12.9 % (11.5-15.5); WBC 4.4 k/uL (3.8-10.6)
[2020-06-09 04:31] LABS: ALT 66 U/L (4-34); AST 117 U/L (14-36); African American GFR (CKD) >90 (>60 ml/min/1.73 sqM); Albumin 3.7 g/dL (3.5-5.0); Alkaline Phosphatase 170 U/L (38-126); Anion Gap 6 mmol/L; Blood Urea Nitrogen 3 mg/dL (7-17); Calcium 8.7 mg/dL (8.4-10.2); Carbon Dioxide 26 mmol/L (22-30); Chloride 105 mmol/L (98-107); Glucose 106 mg/dL (74-99); Non-African American GFR(CKD) >90 (>60 ml/min/1.73 sqM); Potassium 3.1 mmol/L (3.5-5.1); Sodium 137 mmol/L (137-145); Total Protein 6.9 g/dL (6.3-8.2)
[2020-06-09] MEDS: POTASSIUM CHLORIDE ER 20 MEQ TAB.ER PO SCH ×4 (06:17→13:11)
[2020-06-09] MEDS: PANTOPRAZOLE 40 MG/10 ML VIAL IV SCH (08:08)
[2020-06-09] MEDS: HEPARIN SODIUM,PORCINE 5,000 UNIT/ML 1 ML VIAL SQ SCH (08:08)
[2020-06-09] MEDS: FLUTICASONE 50MCG/SPRAY NASAL 16GM EA NOSTRIL SCH (08:09)
[2020-06-09] MEDS: busPIRone HCl 10 MG TAB PO SCH (08:09)
[2020-06-09] MEDS: PARoxetine 10 MG TAB PO SCH (08:09)
[2020-06-09] MEDS ORDERED: atenoloL 50 MG TAB PO SCH (09:00)
--- NOTE | 2020-06-09 12:39 | P.DS ---
Providers Date of admission: 06/07/20 13:49 Attending physician: Tye Gallegos Consults: 06/07/20 13:54 Consult Physician Stat Consulting Provider: Hoang Fernandez Reason/Comments: ICU Do you want consulting provider notified?: Yes Primary care physician: [facility] Course: 40-year-old female was admitted for alcohol withdrawals. Patient is being transferred out of ICU although still having significant withdrawals. Patient will be closely monitored on a regular floor. Patient received Haldol which improved with improvement in her symptoms patient is also on Ativan severe delmar rrhea protocol. Patient has hypokalemia and potassium is being replaced. Patient had leukocytosis which is probably reactive although patient is being treated for sinusitis with the Rocephin and Bactrim was discontinued because of acute renal failure. Patient has a symptomatic bacteriuria for which patient will not require any antibiotics. 06/09/2020 Patient would also significantly better but still has some tremors patient will be discharged on weaning dose of Librium and patient will be discharged today patient is otherwise clinically doing well patient completed a course of antibiotics for sinusitis will not require any antibiotics upon discharge. PHYSICAL EXAMINATION: GENERAL: The patient is alert and oriented x3, not in any acute distress. Well developed, well nourished. Patient still has some generalized nonessential tremor HEENT: Pupils are round and equally reacting to light. EOMI. No scleral icterus. No conjunctival pallor. Normocephalic, atraumatic. No pharyngeal erythema. No thyromegaly. CARDIOVASCULAR: S1 and S2 present. No murmurs, rubs, or gallops. PULMONARY: Chest is clear to auscultation, no wheezing or crackles. ABDOMEN: Soft, nontender, nondistended, normoactive bowel sounds. No palpable organomegaly. MUSCULOSKELETAL: No joint swelling or deformity. EXTREMITIES: No cyanosis, clubbing, or pedal edema. NEUROLOGICAL: Gross neurological examination did not reveal any focal deficits. SKIN: No rashes. Assessment and Plan Plan: -Acute alcohol withdrawal: Patient is clinically doing well wanted to be dischar ged patient will be discharged on Librium on as-needed basis for alcohol withdrawal. -Metabolic encephalopathy secondary to delirium tremens and alcohol withdrawal which improved -Acute renal failure: Secondary to Bactrim which improved continue with IV fluids -Sinusitis and patient is being treated for infectious sinusitis completed antibiotic therapy patient was receiving Rocephin here -Metabolic acidosis which resolved -Acute alcoholic hepatitis: Expected to improve cessation of alcohol -Asymptomatic bacteriuria: Doesn't warrant any antibiotics. -Leukocytosis reactive secondary to alcohol withdrawals and improved now. Patient Condition at Discharge: Serious Plan - Discharge Summary Discharge Rx Participant: No New Discharge Prescriptions: New chlordiazePOXIDE HCl [Librium] 25 mg PO TID 3 Days #12 capsule atenoloL [Tenormin] 100 mg PO DAILY tab Thiamine [Vitamin B-1] 100 mg PO DAILY #30 tablet Continue busPIRone HCl [Buspar] 10 mg PO TID Triamcinolone Acetonide [Nasacort] 1 spray EA NOSTRIL DAILY PARoxetine [Paxil] 10 mg PO DAILY Discontinued Sulfamethox-Tmp 800-160Mg [Bactrim DS 800-160 mg] 1 tab PO Q12HR Discharge Medication List PARoxetine [Paxil] 10 mg PO DAILY 06/07/20 [History] Triamcinolone Acetonide [Nasacort] 1 spray EA NOSTRIL DAILY 06/07/20 [History] busPIRone HCl [Buspar] 10 mg PO TID 06/07/20 [History] Thiamine [Vitamin B-1] 100 mg PO DAILY #30 tablet 06/09/20 [Rx] atenoloL [Tenormin] 100 mg PO DAILY tab 06/09/20 [Rx] chlordiazePOXIDE HCl [Librium] 25 mg PO TID 3 Days #12 capsule 06/09/20 [Rx] Follow up Appointment(s)/Referral(s): Larissa Patricia MD [Primary Care Provider] - 3 Days Discharge Disposition: HOME SELF-CARE
--- NOTE | 2020-06-09 13:06 | P.PN ---
Subjective Progress Note Date: 06/09/20 Principal diagnosis: Acute alcohol withdrawal This is a 40-year-old female who was admitted yesterday and seen by Dr. Christianson on consultation, patient was admitted with acute symptoms of alcohol withdrawal. Patient was felt to be difficult to manage on the medical floor, hence I see admission was advised by the pulmonary team. Patient remains on Ativan for the CIWA protocol. Seems to be very comfortable today, in no distress, patient is arousable, follows simple instructions, and doing great overall. She is on 2 L nasal cannula, O2 saturations 98%. IV fluid is 0.9 normal saline at 100 mL per hour. Her lactic acid is back to normal today. Patient is still receiving f luids. My plan is to transfer the patient to a regular medical floor and continue the alcohol withdrawal protocol. Reevaluated today on 06/09/2020, patient is sitting in bed, eating, doing well, asymptomatic. Patient feels much better today compared to the last 2 days. She is on room air, O2 saturation is in the high 90s. IV fluid is at KVO. Hence I have recommended transferring the patient either to a regular medical floor today, or even seems to consider discharging the patient home today. Labs including CBC and basic metabolic profile were reviewed and they were noted to be unremarkable. Objective - Vital Signs Vital signs: Vital Signs Temp 98.1 F 06/09/20 08:00 Pulse 88 06/09/20 08:00 Resp 18 06/09/20 06:00 BP 145/98 06/09/20 08:00 Pulse Ox 96 06/09/20 08:00 Intake & Output 06/08/20 06/09/20 06/09/20 18:59 06:59 18:59 Intake Total 1450 Output Total 930 Balance 520 Weight 91.4 kg Intake: IV 700 0.9 NaCl- 700 Oral 750 Output: Urine 930 Other: Voiding Method Indwelling Catheter Indwelling Catheter # Voids 2 3 - Exam Physical Exam: Revealed a 40-year-old female in no distress. Head: Atraumatic, normocephalic. HEENT:[Neck is supple.] [No neck masses.] [No thyromegaly.] [No JVD.] Chest: [Clear throughout, no crackles, no rhonchi, no wheezes.] Cardiac Exam: [Normal S1 and S2, no S3 gallop, no murmur.] Abdomen: [Soft, nontender, no megaly, no rebound, no guarding, normal bowel sounds.] Extremities: [No clubbing, no edema, no cyanosis.] Neurological Exam: [No focal neurologic deficit.] Alert and oriented 3. Psychiatric: Normal mood and normal affect and normal mental status examination. Skin: No rashes. - Labs CBC & Chem 7: 06/09/20 03:41 06/09/20 03:41 Labs: Abnormal Lab Results - Last 24 Hours (Table) 06/09/20 06/09/20 Range/Units 03:41 03:41 RBC 3.27 L (3.80-5.40) m/uL Hgb 11.3 L (11.4-16.0) gm/dL Hct 33.2 L (34.0-46.0) % MCV 101.6 H (80.0-100.0) fL Plt Count 108 L (150-450) k/uL Potassium 3.1 L (3.5-5.1) mmol/L BUN 3 L (7-17) mg/dL Glucose 106 H (74-99) mg/dL AST 117 H (14-36) U/L ALT 66 H (4-34) U/L Alkaline Phosphatase 170 H (38-126) U/L Assessment and Plan Assessment: Impression: Acute alcohol withdrawal. History of alcohol wasn't. Chronic liver disease secondary to alcohol. Benign essential hypertension. Mild alcoholic pancreatitis. Recommendation: Patient is doing extremely well today, hence we will recommend either transferred out of the ICU or even consider discharging the patient home. We'll follow when necessary We will continue to follow. Time with Patient: Less than 30
[2020-06-09 14:12] VITALS: BP 145/65; PULSE 78; RESP 14; TEMP 98
== END 2020-06-09 14:37 | disposition home or self-care (01) | DRG 896 ==
LOC: EC 11:23 → 2SICU 13:49
PROVIDERS: ADMIT Hospitalist; ATTEND Hospitalist
DX: F10.231 Alcohol dependence with withdrawal delirium (principal); G93.41 Metabolic encephalopathy; K85.90 Acute pancreatitis without necrosis or infection, unspecified; E87.2 Acidosis; N17.9 Acute kidney failure, unspecified; E87.6 Hypokalemia; F41.9 Anxiety disorder, unspecified; I10 Essential (primary) hypertension; K70.10 Alcoholic hepatitis without ascites; T36.8X5A Adverse effect of other systemic antibiotics, initial encounter; Z82.49 Family history of ischemic heart disease and other diseases of the circulatory system; Z83.3 Family history of diabetes mellitus; Z79.899 Other long term (current) drug therapy; Z90.89 Acquired absence of other organs
CPT/HCPCS: 36415; 71045; 80053; 80306; 80320; 81001; 82140; 83605; 83690; 83735; 85025; 85610; 96365; 96366; 96375; 99291

== ENCOUNTER 2020-07-30 06:43 | Observation (INO) | payer BC, OTHER ==
[2020-07-30] MEDS ORDERED: SODIUM CHLORIDE 0.9% 2,000 ML IV STA (07:13)
--- NOTE | 2020-07-30 07:18 | ED ---
General Adult HPI - General Chief complaint: Alcohol Stated complaint: Mental Health Time Seen by Provider: 07/30/20 07:04 Source: patient, family, RN notes reviewed Mode of arrival: ambulatory Limitations: no limitations - History of Present Illness Initial comments: 40-year-old female with a past medical history of hypertension, alcohol disorder presents to the emergency room for a chief complaint of alcoholism. Patient reports that she chronically drinks alcohol and has detoxed several times. Patient states that she drinks anywhere from a bottle of wine to half a fifth per day. Patient reports she last took a shot this morning but otherwise has not drank since 2 days ago. She states that she took this shot because she started get symptoms of withdrawal which included some anger. Patient states she started to hear things like her boyfriend that speaking about adventism stuff that she knows is not going on. He states this is making her angry and was alarming her boyfriend. Patient denies any thoughts of suicide or harming herself.patient is also complaining of chest pain. States she has had chest pain for 3 days. States it is a squeezing pain. Nonradiating. No nausea or diaphoresis. Patient has no other complaints at this time including shortness of breath, abdominal pain, nausea or vomiting, headache, or visual changes. - Related Data Home Medications Medication Instructions Recorded Confirmed PARoxetine [Paxil] 10 mg PO DAILY 06/07/20 07/30/20 Triamcinolone Acetonide [Nasacort] 1 spray EA NOSTRIL DAILY 06/07/20 07/30/20 busPIRone HCl [Buspar] 10 mg PO TID 06/07/20 07/30/20 Atenolol [Tenormin] 100 mg PO DAILY 07/30/20 07/30/20 Ergocalciferol [Vitamin D2 (1250 1,250 mcg PO SA 07/30/20 07/30/20 Mcg = 88083 Iu)] Hydrochlorothiazide 12.5 mg PO DAILY 07/30/20 07/30/20 [hydroCHLOROthiazide] Potassium Chloride ER [K-Dur 10] 10 meq PO DAILY 07/30/20 07/30/20 Allergies Allergy/AdvReac Type Severity Reaction Status Date / Time No Known Allergies Allergy Verified 07/30/20 08:33 Review of Systems ROS Statement: Those systems with pertinent positive or pertinent negative responses have been documented in the HPI. ROS Other: All systems not noted in ROS Statement are negative. Past Medical History Past Medical History: Hypertension, Liver Disease Additional Past Medical History / Comment(s): ETOH History of Any Multi-Drug Resistant Organisms: None Reported Past Surgical History: Adenoidectomy, Tonsillectomy Additional Past Surgical History / Comment(s): Removal of sinus polyp, removal of embedded IUD Past Anesthesia/Blood Transfusion Reactions: No Reported Reaction Past Psychological History: Anxiety, Bipolar, Depression Smoking Status: Former smoker Past Alcohol Use History: Abuse, Heavy Past Drug Use History: None Reported - Past Family History Mother Family Medical History: Diabetes Mellitus Father Family Medical History: Coronary Artery Disease (CAD), Hypertension Brother(s) Additional Family Medical History / Comment(s): bicuspid aortic valve General Exam Limitations: no limitations General appearance: alert, in no apparent distress Head exam: Present: atraumatic, normocephalic, normal inspection Eye exam: Present: normal appearance, PERRL, EOMI. Absent: scleral icterus, conjunctival injection ENT exam: Present: normal exam, mucous membranes moist Neck exam: Present: normal inspection, full ROM. Absent: tenderness Respiratory exam: Present: normal lung sounds bilaterally. Absent: respiratory distress, wheezes Cardiovascular Exam: Present: regular rate, normal rhythm, normal heart sounds GI/Abdominal exam: Present: soft, normal bowel sounds. Absent: distended, tenderness Neurological exam: Present: alert, oriented X3 Course Vital Signs 07/30/20 07/30/20 06:45 08:00 Temperature 99 F 98.3 F Pulse Rate 129 H 110 H Respiratory 22 18 Rate Blood Pressure 157/118 147/98 O2 Sat by Pulse 97 96 Oximetry EKG Findings - EKG Comments: EKG Findings:: Sinus tachycardia, ventricular rate 112, KS interval 154, QTc 461 Medical Decision Making - Medical Decision Making Patient presents for alcohol withdrawal. Patient has had severe delirium tremens in the past requiring ICU placement. States she is hearing things again. Patient has slowed down on drinking over the past couple days however did drink this morning. Patient states she is trying to quit so she can go to rehab. Alcohol was found to be 277 today. Slight tremor noted. Patient is also complaining of chest pain. States it is a squeezing pain that is nonradiating. EKG here is nonischemic. Troponin is negative. Patient does have transaminitis likely related to alcoholic hepatitis. Given patient's history of severe alcohol withdrawal, hallucinations today as well as chest pain she will be admitted for cardiac rule out and CIWA protocol. - Lab Data Result diagrams: 07/30/20 07:22 07/30/20 07:22 Lab Results 07/30/20 07/30/20 07/30/20 Range/Units 07:22 07:22 07:29 WBC 6.9 (3.8-10.6) k/uL RBC 4.45 (3.80-5.40) m/uL Hgb 13.9 (11.4-16.0) gm/dL Hct 43.6 (34.0-46.0) % MCV 97.9 (80.0-100.0) fL MCH 31.3 (25.0-35.0) pg MCHC 32.0 (31.0-37.0) g/dL RDW 13.1 (11.5-15.5) % Plt Count 108 L (150-450) k/uL MPV 9.1 Neutrophils % 60 % Lymphocytes % 31 % Monocytes % 4 % Eosinophils % 1 % Basophils % 0 % Neutrophils # 4.1 (1.3-7.7) k/uL Lymphocytes # 2.2 (1.0-4.8) k/uL Monocytes # 0.3 (0-1.0) k/uL Eosinophils # 0.1 (0-0.7) k/uL Basophils # 0.0 (0-0.2) k/uL Sodium 144 (137-145) mmol/L Potassium 4.7 (3.5-5.1) mmol/L Chloride 104 (98-107) mmol/L Carbon Dioxide 29 (22-30) mmol/L Anion Gap 11 mmol/L BUN 7 (7-17) mg/dL Creatinine 0.67 (0.52-1.04) mg/dL Est GFR (CKD-EPI)AfAm >90 (>60 ml/min/1.73 sqM) Est GFR (CKD-EPI)NonAf >90 (>60 ml/min/1.73 sqM) Glucose 128 H (74-99) mg/dL Calcium 8.9 (8.4-10.2) mg/dL Magnesium 1.8 (1.6-2.3) mg/dL Total Bilirubin 2.2 H (0.2-1.3) mg/dL AST 332 H (14-36) U/L ALT 273 H (4-34) U/L Alkaline Phosphatase 290 H (38-126) U/L Troponin I (0.000-0.034) ng/mL Total Protein 9.0 H (6.3-8.2) g/dL Albumin 4.7 (3.5-5.0) g/dL Amylase 79 (30-110) U/L Lipase 239 (23-300) U/L Urine Color Yellow Urine Appearance Cloudy H (Clear) Urine pH 6.0 (5.0-8.0) Ur Specific [place] 1.008 (1.001-1.035) Urine Protein Negative (Negative) Urine Glucose (UA) Negative (Negative) Urine Ketones Negative (Negative) Urine Blood Trace H (Negative) Urine Nitrite Negative (Negative) Urine Bilirubin Negative (Negative) Urine Urobilinogen <2.0 (<2.0) mg/dL Ur Leukocyte Esterase Negative (Negative) Urine RBC 1 (0-5) /hpf Urine WBC 1 (0-5) /hpf Ur Squamous Epith Cells 5 H (0-4) /hpf Urine Bacteria Rare H (None) /hpf Urine Mucus Rare H (None) /hpf Urine HCG, Qual (Not Detectd) Serum Alcohol 277 H* mg/dL 07/30/20 07/30/20 Range/Units 07:29 07:29 WBC (3.8-10.6) k/uL RBC (3.80-5.40) m/uL Hgb (11.4-16.0) gm/dL Hct (34.0-46.0) % MCV (80.0-100.0) fL MCH (25.0-35.0) pg MCHC (31.0-37.0) g/dL RDW (11.5-15.5) % Plt Count (150-450) k/uL MPV Neutrophils % % Lymphocytes % % Monocytes % % Eosinophils % % Basophils % % Neutrophils # (1.3-7.7) k/uL Lymphocytes # (1.0-4.8) k/uL Monocytes # (0-1.0) k/uL Eosinophils # (0-0.7) k/uL Basophils # (0-0.2) k/uL Sodium (137-145) mmol/L Potassium (3.5-5.1) mmol/L Chloride (98-107) mmol/L Carbon Dioxide (22-30) mmol/L Anion Gap mmol/L BUN (7-17) mg/dL Creatinine (0.52-1.04) mg/dL Est GFR (CKD-EPI)AfAm (>60 ml/min/1.73 sqM) Est GFR (CKD-EPI)NonAf (>60 ml/min/1.73 sqM) Glucose (74-99) mg/dL Calcium (8.4-10.2) mg/dL Magnesium (1.6-2.3) mg/dL Total Bilirubin (0.2-1.3) mg/dL AST (14-36) U/L ALT (4-34) U/L Alkaline Phosphatase (38-126) U/L Troponin I <0.012 (0.000-0.034) ng/mL Total Protein (6.3-8.2) g/dL Albumin (3.5-5.0) g/dL Amylase (30-110) U/L Lipase (23-300) U/L Urine Color Urine Appearance (Clear) Urine pH (5.0-8.0) Ur Specific [place] (1.001-1.035) Urine Protein (Negative) Urine Glucose (UA) (Negative) Urine Ketones (Negative) Urine Blood (Negative) Urine Nitrite (Negative) Urine Bilirubin (Negative) Urine Urobilinogen (<2.0) mg/dL Ur Leukocyte Esterase (Negative) Urine RBC (0-5) /hpf Urine WBC (0-5) /hpf Ur Squamous Epith Cells (0-4) /hpf Urine Bacteria (None) /hpf Urine Mucus (None) /hpf Urine HCG, Qual Not Detected (Not Detectd) Serum Alcohol mg/dL Disposition Clinical Impression: Chest pain, Alcohol withdrawal, Alcoholic hepatitis Disposition: ADMITTED IP TO THIS HOSP Is patient prescribed a controlled substance at d/c from ED?: No Referrals: Larissa Patricia MD [Primary Care Provider] - 1-2 days Time of Disposition: 08:53
[2020-07-30 07:30] LABS: Basophils % (A) 0 %; Eosinophils # (A) 0.1 k/uL (0-0.7); Eosinophils % (A) 1 %; HCT 43.6 % (34.0-46.0); HGB 13.9 gm/dL (11.4-16.0); Lymphocytes # (A) 2.2 k/uL (1.0-4.8); Lymphocytes % (A) 31 %; MCH 31.3 pg (25.0-35.0); MCV 97.9 fL (80.0-100.0); Mean Platelet Volume 9.1; Monocytes # (A) 0.3 k/uL (0-1.0); Monocytes % (A) 4 %; Neutrophils # (A) 4.1 k/uL (1.3-7.7); Neutrophils % (A) 60 %; Platelet Count 108 k/uL (150-450); RBC 4.45 m/uL (3.80-5.40); RDW 13.1 % (11.5-15.5); WBC 6.9 k/uL (3.8-10.6)
[2020-07-30 07:40] LABS: ALT 273 U/L (4-34); AST 332 U/L (14-36); African American GFR (CKD) >90 (>60 ml/min/1.73 sqM); Albumin 4.7 g/dL (3.5-5.0); Alkaline Phosphatase 290 U/L (38-126); Amylase 79 U/L (30-110); Anion Gap 11 mmol/L; Blood Urea Nitrogen 7 mg/dL (7-17); Calcium 8.9 mg/dL (8.4-10.2); Carbon Dioxide 29 mmol/L (22-30); Chloride 104 mmol/L (98-107); Glucose 128 mg/dL (74-99); Lipase 239 U/L (23-300); Magnesium 1.8 mg/dL (1.6-2.3); Non-African American GFR(CKD) >90 (>60 ml/min/1.73 sqM); Sodium 144 mmol/L (137-145); Total Bilirubin 2.2 mg/dL (0.2-1.3)
[2020-07-30 07:52] LABS: Appearance,Urine Cloudy (Clear); Bacteria,Urine Rare /hpf; Bilirubin,Urine Negative (Negative); Blood,Urine Trace (Negative); Color,Urine Yellow; Glucose,Urine (UA) Negative (Negative); Ketones,Urine Negative (Negative); Leukocyte Esterase,Urine Negative (Negative); Mucus,Urine Rare /hpf; Nitrite,Urine Negative (Negative); Protein,Urine Negative (Negative); RBC,Urine 1 /hpf (0-5); Specific Gravity,Urine 1.008 (1.001-1.035); Squamous Epithelial Cell,Urine 5 /hpf (0-4); Urobilinogen,Urine <2.0 mg/dL (<2.0); WBC,Urine 1 /hpf (0-5)
[2020-07-30 07:54] LABS: Alcohol 277 mg/dL; Potassium 4.7 mmol/L (3.5-5.1)
[2020-07-30] MEDS ORDERED: LORazepam 2 MG/ML INJ IV STA (07:59)
--- NOTE | 2020-07-30 08:07 | XR ---
EXAMINATION TYPE: XR chest 2V DATE OF EXAM: 07/30/2020 COMPARISON: 06/08/20 HISTORY: Chest pain TECHNIQUE: Frontal and lateral views of the chest are obtained. FINDINGS: There is no focal air space opacity. No evidence for pneumothorax. No pleural effusion. The cardiac silhouette size is within normal limits. The osseous structures are grossly intact. IMPRESSION: 1. No acute cardiopulmonary process.
[2020-07-30] MEDS ORDERED: ONDANSETRON 4 MG/2 ML VIAL IVP PRN (08:53)
[2020-07-30] MEDS ORDERED: NALOXONE 0.4 MG/ML 1 ML VIAL IV PRN (08:53)
[2020-07-30] MEDS ORDERED: LORazepam 2 MG/ML INJ IV PRN ×2 (08:55)
[2020-07-30] MEDS ORDERED: THIAMINE 100 MG/ML 2 ML VIAL IM STA (08:55)
[2020-07-30] MEDS ORDERED: hydroCHLOROthiazide 12.5 MG CAP PO SCH (09:00)
[2020-07-30] MEDS ORDERED: PANTOPRAZOLE 40 MG/10 ML VIAL IV SCH (09:00)
[2020-07-30] MEDS ORDERED: PARoxetine 10 MG TAB PO SCH (10:00)
[2020-07-30] MEDS: busPIRone HCl 10 MG TAB PO SCH ×3 (10:14→19:55)
[2020-07-30] MEDS: atenoloL 50 MG TAB PO SCH (10:14)
[2020-07-30] MEDS: FLUTICASONE 50MCG/SPRAY NASAL 16GM EA NOSTRIL SCH (10:14)
[2020-07-30] MEDS: SODIUM CHLORIDE 0.9% 1,000 ML IV SCH ×2 (10:15→19:54)
--- NOTE | 2020-07-30 10:54 | P.HPIM ---
History of Present Illness Patient is a pleasant 40-year-old female came in with the complaints of delusions and hallucinations. Patient really feels like someone is talking to her. Never had any history of schizophrenia schizoaffective disorder. Patient the was treated in the past for alcohol withdrawals and was discharged home earlier this month. Patient to quit alcohol since then started drinking about 3 days ago and she feels like all the symptoms happen whenever she quits alcohol. Patient was depressed. Denied any suicidal ideations. Patient was also complaining of chest pressure like sensation which she believes is secondary to anxiety associated with nausea lightheadedness no diaphoresis constant mild resolved at this time. Patient also comparing a squeezing pain in both legs may be related to restless leg syndrome. Patient also has history of gastroesophageal reflux disease acts up sometimes. Apart from moderate hallucinations patient was also complaining of some tactile hallucinations. Review of Systems REVIEW OF SYSTEMS: CONSTITUTIONAL: No fever, no malaise, no fatigue. HEENT: No recent visual problems or hearing problems. Denied any sore throat. CARDIOVASCULAR: No orthopnea, PND, no palpitations, no syncope. PULMONARY: No shortness of breath, no cough, no hemoptysis. GASTROINTESTINAL: No diarrhea, no nausea, no vomiting, no abdominal pain. NEUROLOGICAL: No headaches, no weakness, no numbness. HEMATOLOGICAL: Denies any bleeding or petechiae. GENITOURINARY: Denies any burning micturition, frequency, or urgency. MUSCULOSKELETAL/RHEUMATOLOGICAL: Denies any joint pain, swelling, or any muscle pain. ENDOCRINE: Denies any polyuria or polydipsia. The rest of the 14-point review of systems is negative. Past Medical History Past Medical History: Hypertension Additional Past Medical History / Comment(s): Pt recently admitted recently to [facility] on 06/27/20 with acute alcohol withdrawal/metabolic encephalopathy 2ndary to DTs/metabolic acidosis/acute alcohol hepatitis/acute renal failure and sinusitis. Other hx: ETOH abuse with alcohol withdrawal DTs History of Any Multi-Drug Resistant Organisms: None Reported Past Surgical History: Adenoidectomy, Tonsillectomy Additional Past Surgical History / Comment(s): Removal of sinus polyp, removal of embedded IUD Past Anesthesia/Blood Transfusion Reactions: No Reported Reaction Past Psychological History: Anxiety, Depression Additional Psychological History / Comment(s): Pt resides with her boyfriend. She is independent. Smoking Status: Former smoker Past Alcohol Use History: Abuse, Heavy Additional Past Alcohol Use History / Comment(s): Pt started smoking as a teen and quit in 2009. She drinks heavily either a bottle of wine a day or half a fifth of liqour. She has not drank in 2 days with the exception of a shot today. Past Drug Use History: None Reported - Past Family History Mother Family Medical History: Diabetes Mellitus Additional Family Medical History / Comment(s): "pre-diabetes" Father Family Medical History: Coronary Artery Disease (CAD), Hypertension Brother(s) Additional Family Medical History / Comment(s): bicuspid aortic valve disease Medications and Allergies Home Medications Medication Instructions Recorded Confirmed Type PARoxetine [Paxil] 10 mg PO DAILY 06/07/20 07/30/20 History Triamcinolone Acetonide [Nasacort] 1 spray EA NOSTRIL DAILY 06/07/20 07/30/20 History busPIRone HCl [Buspar] 10 mg PO TID 06/07/20 07/30/20 History Atenolol [Tenormin] 100 mg PO DAILY 07/30/20 07/30/20 History Ergocalciferol [Vitamin D2 (1250 1,250 mcg PO SA 07/30/20 07/30/20 History Mcg = 00798 Iu)] Hydrochlorothiazide 12.5 mg PO DAILY 07/30/20 07/30/20 History [hydroCHLOROthiazide] Potassium Chloride ER [K-Dur 10] 10 meq PO DAILY 07/30/20 07/30/20 History Allergies Allergy/AdvReac Type Severity Reaction Status Date / Time No Known Allergies Allergy Verified 07/30/20 08:33 Physical Exam Vitals: Vital Signs Temp Pulse Resp BP Pulse Ox 07/30/20 10:39 97.9 F 108 H 18 115/77 98 07/30/20 10:18 97.9 F 102 H 18 115/77 98 07/30/20 09:00 98.3 F 110 H 18 123/71 96 07/30/20 08:00 98.3 F 110 H 18 147/98 96 07/30/20 06:45 99 F 129 H 22 157/118 97 Intake and Output 07/29/20 07/30/20 07/30/20 22:59 06:59 14:59 Other: Weight 83.915 kg 83.915 kg PHYSICAL EXAMINATION: GENERAL: The patient is alert and oriented x3, not in any acute distress. Well developed, well nourished. HEENT: Pupils are round and equally reacting to light. EOMI. No scleral icterus. No conjunctival pallor. Normocephalic, atraumatic. No pharyngeal erythema. No thyromegaly. CARDIOVASCULAR: S1 and S2 present. No murmurs, rubs, or gallops. PULMONARY: Chest is clear to auscultation, no wheezing or crackles. ABDOMEN: Soft, nontender, nondistended, normoactive bowel sounds. No palpable organomegaly. MUSCULOSKELETAL: No joint swelling or deformity. EXTREMITIES: No cyanosis, clubbing, or pedal edema. NEUROLOGICAL: Gross neurological examination did not reveal any focal deficits. SKIN: No rashes. Results CBC & Chem 7: 07/30/20 07:22 07/30/20 07:22 Labs: Abnormal Lab Results - Last 24 Hours (Table) 07/30/20 07/30/20 07/30/20 Range/Units 07:22 07:22 07:29 Plt Count 108 L (150-450) k/uL Glucose 128 H (74-99) mg/dL Total Bilirubin 2.2 H (0.2-1.3) mg/dL AST 332 H (14-36) U/L ALT 273 H (4-34) U/L Alkaline Phosphatase 290 H (38-126) U/L Total Protein 9.0 H (6.3-8.2) g/dL Urine Appearance Cloudy H (Clear) Urine Blood Trace H (Negative) Ur Squamous Epith Cells 5 H (0-4) /hpf Urine Bacteria Rare H (None) /hpf Urine Mucus Rare H (None) /hpf Serum Alcohol 277 H* mg/dL Thrombosis Risk Factor Assmnt - Choose All That Apply Any of the Below Risk Factors Present?: Yes Each Factor Represents 1 point: Obesity (BMI >25) Other Risk Factors: No Other congenital or acquired thrombophilia - If yes, enter type in comment: No Thrombosis Risk Factor Assessment Total Risk Factor Score: 1 Thrombosis Risk Factor Assessment Level: Low Risk Assessment and Plan Plan: -Alcohol abuse: Patient will be treated for alcohol withdrawal patient will be monitored here. Patient is willing to quit alcohol completely -Depression, hallucinations: Psychiatry will be consulted alcohol withdrawal can cause usually tactile hallucinations. -Alcoholic hepatitis expected to improve with cessation of alcohol -Chest pain atypical mostly related to anxiety or gastroesophageal reflux disease patient will be started on Protonix -Hypertension and continued on atenolol hold off on hydrochlorothiazide -Tachycardia probably reflux from not taking atenolol today morning -Asymptomatic bacteriuria: No need for antibiotics -DVT prophylaxis early ambulation
[2020-07-30] MEDS: POTASSIUM CHLORIDE ER 10 MEQ TAB.ER.PRT PO SCH (11:24)
--- NOTE | 2020-07-30 12:56 | P.CN ---
Psychiatric Consult - . Consult date: 07/30/20 Consult:: 07/30/20 12:44 IDENTIFYING DATA: This patient is a 40-year-old female who currently lives with her boyfriend in apartment has no kids and is unemployed REASON FOR REFERRAL: Psychiatry was consulted for hallucinations HISTORY OF PRESENT ILLNESS: The patient presented to the hospital yesterday with complaints of chronic alcohol use. Patient had reported that she has been detoxed several times off alcohol and has even had delirium tremens in the past and has been admitted to the ICU for alcohol withdrawal. Patient had stated in the ER that she has been drinking approximately a bottle of wine to half a fifth of liquor a day. She complained of hearing auditory hallucinations when she is withdrawing from alcohol. Patient's AST/ALT were elevated and blood alcohol level was 277 on admission. Patient had reported that she had drank prior to coming into the hospital to help her with withdrawals. Patient was seen at the bedside and agreeable to speak to tag writer. Patient was fairly pleasant and cooperative with tag writer however states that she has been dealing with alcohol use for approximately 20 years now. She states that she has been sober on and off for approximately 3 months being the longest period she claims that she drinks excessively with her boyfriend at times, binge drinking. She states that she is currently having some mild withdrawal symptoms including tremor and mild anxiety. She states that she was hearing "my neighbor's voice" speaking to her about alcohol use and also several yazidi themes. She states that the auditory hallucinations also spoke about threatening to kill her cat. She claims that she did see shadows at nighttime when she is not drinking. She claims that she does feel mild depression and anxiety. She states that her sleep has been "on and off". She claims that at this time that she would like more outpatient treatment for her alcohol use as she is trying to look for a job and states that she does not want to go to rehab . At this time patient denies any suicidal or homical ideations, intent or plan. Patient denies any current auditory, visual hallucinations and denies any paranoia or delusions. Patients admits to using alcohol as noted above. She denies using any cigarettes or any other recreational drugs. PAST PSYCHIATRIC HISTORY: Patient has a a history of anxiety depression and alcohol abuse. Patient is previously on BuSpar and Paxil for anxiety and depression. Patient denies any previous psychiatric hospitalizations. Patient denies any psychiatric outpatient follow-up and claims that she follows up with her PCP who prescribed her medications. Patient denies any history of suicide attempts in the past. PAST MEDICAL HISTORY: Hypertension and liver disease. ALLERGIES: as per EMR. CHEMICAL DEPENDENCY HISTORY: as per HPI. FAMILY PSYCHIATRIC/SUBSTANCE USE HISTORY: States that her uncle committed suicide. She states that her mother and father both abused alcohol SOCIAL HISTORY: Patient was born and raised in [facility]. 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 She claims that since the beginning of the pandemic last year she has been unemployed. She claims that she was charged once with a owi discharge 12 years ago. She claims that she has no kids and is unemployed and lives with her boyfriend in apartment. MENTAL STATUS EXAM: General Appearance: Patient appears to be overweight, stated age is alert, pleasant, and cooperative. Patient appears to have fair hygiene and grooming wearing hospital gown with fair eye contact. Behavior: Patient is calmly lying in bed without any agitated behavior. Speech: Patient's speech is fluent and nonpressured. Mood/Affect: Patient reports their mood is "depressed and anxious", affect is congruent and constricted Suicidality/Homicidality: Patient denies having any current suicidal or homicidal ideation intent or plan. Perceptions: Patient denies any visual hallucinations and denies any auditory hallucinations Though content/process: There is no evidence of any delusional thought content and thought process is linear and goal-directed. Focus on her symptoms. Memory and concentration: AOX3, grossly intact for the purposes of this session. Can spell "WORLD" backwards Judgment and insight: poor IMPRESSIONS: Depressive disorder unspecified, rule out substance-induced depressive disorder versus major depressive disorder Alcohol use disorder, severe, currently in withdrawal Alcohol hallucinosis PLAN: -At this time patient DOES NOT meet criteria for inpatient psychiatric admission. -Would recommend the following medication changes/additions: Patient was agreeable to start Zoloft 50 mg daily for mood/anxiety. Discontinued Paxil. Started trazodone 50 mg daily at bedtime for insomnia/mood. Started Librium taper 25 mg 3 times a day for alcohol withdrawal. Patient is agreeable to start acamprosate 3 times a day for alcohol cravings. -CIWA protocol with PRN Ativan for alcohol withdrawal. Continue to monitor vital signs. -thiamine, FA and MVM for chronic etoh use. -delinquency prevention social worker to provide patient with outpatient mental health/psychiatry resources for appropriate follow up upon discharge -Fire Inspector spoke with patient about substance abuse and the harmful effects on medical and mental health, patient verbally understood and agreed. -delinquency prevention social worker to provide patient substance use treatment resources including AA/NA meetings in the community. Fire Inspector spoke with patient about rehab however patient is not interested at this time and would rather do outpatient treatment. -Communicated plan to patient's nurse -Will continue to follow along -Please contact with any questions.
[2020-07-30] MEDS: chlordiazePOXIDE 25 MG CAP PO SCH ×3 (13:38→19:54)
[2020-07-30] MEDS: FOLIC ACID 1 MG TAB PO SCH (13:38)
[2020-07-30] MEDS: ACAMPROSATE CALCIUM 333 MG TABLET.DR PO SCH ×3 (13:38→19:54)
[2020-07-30] MEDS: SERTRALINE 50 MG TAB PO SCH (13:38)
[2020-07-30] MEDS: MULTIVITAMINS, THERA 1 EACH TAB PO SCH (13:38)
[2020-07-30] MEDS: THIAMINE 100 MG TAB PO SCH (17:37)
[2020-07-30] MEDS: LORazepam 2 MG/ML INJ IV PRN (20:07)
[2020-07-30] MEDS ORDERED: traZODone HCL 50 MG TAB PO SCH (21:00)
[2020-07-31] MEDS: SODIUM CHLORIDE 0.9% 1,000 ML IV SCH ×2 (00:33→09:05)
[2020-07-31] MEDS: LORazepam 2 MG/ML INJ IV PRN (04:14)
[2020-07-31 07:24] VITALS: BP 162/108; PULSE 84; RESP 16; TEMP 98.2
[2020-07-31] MEDS ORDERED: PANTOPRAZOLE 40 MG TABLET PO SCH (07:30)
[2020-07-31] MEDS: MULTIVITAMINS, THERA 1 EACH TAB PO SCH (07:39)
[2020-07-31] MEDS: THIAMINE 100 MG TAB PO SCH (07:39)
[2020-07-31] MEDS: chlordiazePOXIDE 25 MG CAP PO SCH (07:39)
[2020-07-31] MEDS: busPIRone HCl 10 MG TAB PO SCH (07:39)
[2020-07-31] MEDS: atenoloL 50 MG TAB PO SCH (07:39)
[2020-07-31] MEDS: SERTRALINE 50 MG TAB PO SCH (07:39)
[2020-07-31] MEDS: FOLIC ACID 1 MG TAB PO SCH (07:40)
[2020-07-31] MEDS: POTASSIUM CHLORIDE ER 10 MEQ TAB.ER.PRT PO SCH (07:40)
[2020-07-31] MEDS ORDERED: ASPIRIN 325 MG TAB PO SCH (09:00)
[2020-07-31] MEDS ORDERED: ACAMPROSATE CALCIUM 333 MG TABLET.DR PO SCH (09:00)
[2020-07-31] MEDS: FLUTICASONE 50MCG/SPRAY NASAL 16GM EA NOSTRIL SCH (09:05)
[2020-07-31 09:50] LABS: African American GFR (CKD) 132.1 (60.0-200.0); Albumin 3.6 g/dL (3.80-4.90); Albumin/Globulin Ratio 1.57 (1.60-3.17); BUN/Creat Ratio 16.67 Ratio (12.00-20.00); Chol/HDL Ratio 4.76; Globulin 2.3 g/dL (1.6-3.3); LDL Cholesterol,Calculated 130.6 mg/dL (0.0-131.0); Potassium 3.5 mmol/L (3.5-5.5); Total Bilirubin 1.4 mg/dL (0.2-1.2); Total Protein 5.9 g/dL (6.2-8.2); VLDL Calculation 27.4 mg/dL (5.00-40.00)
--- NOTE | 2020-07-31 11:15 | P.PN ---
Progress Note - Text Progress Note Date: 07/31/20 Interval History: Patient was seen today for psychiatric follow-up regarding patient's depression and alcohol abuse. Patient was noted to be in her street clothing and sitting at the side of her bed today. She appeared to have an improvement in her affect this morning and states that her mood has been improving. She denies any anxiety today. She states that her withdrawal symptoms have improved on the Librium. She states that she was able to sleep a bit better last night with the trazodone and wants to remain on the same dose upon discharge. She asked several questions about outpatient follow-up and wants to begin speaking and following up with a therapist. She continues to decline rehab and was superficial about her substance use. At this time patient denies any suicidal or homical ideations, intent or plan. Patient denies any auditory, visual hallucinations and denies any paranoia or delusions. Patient denies any side effects from the medications and has been compliant with meds. Mental Status Exam: General Appearance: Patient appears to be overweight, stated age is alert, pleasant, and cooperative. Patient appears to have fair hygiene and grooming wearing hospital gown with fair eye contact. Behavior: Patient is calmly lying in bed without any agitated behavior. Speech: Patient's speech is fluent and nonpressured. Mood/Affect: Patient reports their mood is "better", affect is congruent Suicidality/Homicidality: Patient denies having any current suicidal or homicidal ideation intent or plan. Perceptions: Patient denies any visual hallucinations and denies any auditory hallucinations Though content/process: There is no evidence of any delusional thought content and thought process is linear and goal-directed. Memory and concentration: AOX3, grossly intact for the purposes of this session Judgment and insight: Improved Assessment Depressive disorder unspecified, rule out substance-induced depressive disorder versus major depressive disorder Alcohol use disorder, severe, currently in withdrawal Alcohol hallucinosis Plan: -At this time patient DOES NOT meet criteria for inpatient psychiatric admission. -Would recommend the following medication changes/additions: Continue with Zoloft 50 mg daily for mood/anxiety. Continue with trazodone 50 mg daily at bedtime for insomnia/mood. Continue with Librium taper for alcohol withdrawal. Continue with acamprosate 666 mg 3 times a day for alcohol cravings. -CIWA protocol with PRN Ativan for alcohol withdrawal. Continue to monitor vital signs. -thiamine, FA and MVM for chronic etoh use. -cement and concrete plant worker to provide patient with outpatient mental health/psychiatry resources for appropriate follow up upon discharge -Harp Regulator spoke with patient about substance abuse and the harmful effects on medical and mental health, patient verbally understood and agreed. -cement and concrete plant worker to provide patient substance use treatment resources including AA/NA meetings in the community. Harp Regulator spoke with patient about rehab however patient is not interested at this time and would rather do outpatient treatment. -Communicated plan to patient's nurse -At this time psychiatry will sign off. -Please contact with any questions.
--- NOTE | 2020-07-31 16:06 | P.DS ---
Providers Date of admission: 07/30/20 08:38 Expected date of discharge: 07/31/20 Attending physician: Zeke Pope Consults: 07/30/20 10:48 Consult Physician Routine Consulting Provider: Jonathan Sosa Consult Reason/Comments: Hallucinations Do you want consulting provider notified?: Yes Primary care physician: Larissa Patricia Hospital Course: Final diagnosis -Alcohol abuse -Depression, hallucinations -Alcoholic hepatitis expected to improve with cessation of alcohol -Chest pain atypical mostly related to anxiety or gastroesophageal reflux disease, resolved -Hypertension -Tachycardia probably reflux from not taking atenolol today morning -Asymptomatic bacteriuria: No need for antibiotics -DVT prophylaxis Discharge disposition Patient is being discharged in a stable condition with guarded prognosis to home. Patient will follow-up with Dr. Patricia in the outpatient setting upon discharge. Patient will also follow-up with CM and counseling in the o utpatient setting. She will continue on a Librium taper and prescription was sent to pharmacy. Total time taken is greater than 35 minutes. Hospital course Patient is a pleasant 40-year-old female came in with the complaints of delusions and hallucinations. Patient really feels like someone is talking to her. Never had any history of schizophrenia schizoaffective disorder. Patient the was treated in the past for alcohol withdrawals and was discharged home earlier this month. Patient to quit alcohol since then started drinking about 3 days ago and she feels like all the symptoms happen whenever she quits alcohol. Patient was depressed. Denied any suicidal ideations. Patient was also complaining of chest pressure like sensation which she believes is secondary to anxiety associated with nausea lightheadedness no diaphoresis constant mild resolved at this time. Patient also comparing a squeezing pain in both legs may be related to restless leg syndrome. Patient also has history of gastroesophageal reflux disease acts up sometimes. Apart from moderate hallucinations patient was also complaining of some tactile hallucinations. 07/31/2020 Patient is currently sitting up in the chair with no acute overnight issues. Patient states she feels much better and denies any withdrawal symptoms. Was seen and evaluated by psychiatry and adjustments to medications have been made and prescription sent to pharmacy. She does not meet criteria for inpatient psychiatry at this time. Patient instructed to follow-up with primary care provider along with community mental health and counseling services in the outpatient setting. Patient instructed to avoid all alcohol intake. Patient was given prescription of Librium taper for discharge. Currently no reports of chest pain, shortness of breath, or palpitations. Patient is afebrile. No reports of nausea or vomiting and patient is tolerating diet. Patient will be discharged home today. On exam vital signs are stable. Cardio S1, S2 are muffled. Respiratory system shows diminished breath sounds at the bases with no wheezing or rhonchi noted. Abdomen is soft and nontender. Nervous system shows no focal deficits. Please refer to medication reconciliation sheet for a list of medications. Patient Condition at Discharge: Stable Plan - Discharge Summary Discharge Rx Participant: No New Discharge Prescriptions: New Acamprosate Calcium [Campral] 666 mg PO TID 30 Days #90 tablet. traZODone HCL [Desyrel] 50 mg PO HS PRN #10 tab PRN Reason: Insomnia Folic Acid 1 mg PO DAILY 30 Days #30 tab Multivitamins, Thera [Multivitamin (formulary)] 1 each PO DAILY 30 Days #30 tab Pantoprazole [Protonix] 40 mg PO AC-BRKFST 14 Days #14 tablet. Thiamine [Vitamin B-1] 100 mg PO BID-W/MEALS 30 Days #60 tab Sertraline [Zoloft] 50 mg PO DAILY 30 Days #30 tab chlordiazePOXIDE HCl [Librium] 25 mg PO TID 3 Days #12 capsule Continue busPIRone HCl [Buspar] 10 mg PO TID Triamcinolone Acetonide [Nasacort] 1 spray EA NOSTRIL DAILY Potassium Chloride ER [K-Dur 10] 10 meq PO DAILY Hydrochlorothiazide [hydroCHLOROthiazide] 12.5 mg PO DAILY Atenolol [Tenormin] 100 mg PO DAILY Ergocalciferol [Vitamin D2 (1250 Mcg = 96240 Iu)] 1,250 mcg PO SA Discontinued PARoxetine [Paxil] 10 mg PO DAILY Discharge Medication List Triamcinolone Acetonide [Nasacort] 1 spray EA NOSTRIL DAILY 06/07/20 [History] busPIRone HCl [Buspar] 10 mg PO TID 06/07/20 [History] Atenolol [Tenormin] 100 mg PO DAILY 07/30/20 [History] Ergocalciferol [Vitamin D2 (1250 Mcg = 50313 Iu)] 1,250 mcg PO SA 07/30/20 [History] Hydrochlorothiazide [hydroCHLOROthiazide] 12.5 mg PO DAILY 07/30/20 [History] Potassium Chloride ER [K-Dur 10] 10 meq PO DAILY 07/30/20 [History] Acamprosate Calcium [Campral] 666 mg PO TID 30 Days #90 tablet. 07/31/20 [Rx] Folic Acid 1 mg PO DAILY 30 Days #30 tab 07/31/20 [Rx] Multivitamins, Thera [Multivitamin (formulary)] 1 each PO DAILY 30 Days #30 tab 07/31/20 [Rx] Pantoprazole [Protonix] 40 mg PO AC-BRKFST 14 Days #14 tablet. 07/31/20 [Rx] Sertraline [Zoloft] 50 mg PO DAILY 30 Days #30 tab 07/31/20 [Rx] Thiamine [Vitamin B-1] 100 mg PO BID-W/MEALS 30 Days #60 tab 07/31/20 [Rx] chlordiazePOXIDE HCl [Librium] 25 mg PO TID 3 Days #12 capsule 07/31/20 [Rx] traZODone HCL [Desyrel] 50 mg PO HS PRN #10 tab 07/31/20 [Rx] Follow up Appointment(s)/Referral(s): Larissa Patricia MD [Primary Care Provider] - 1-2 days Patient Instructions/Handouts: Alcohol Withdrawal (DC) Activity/Diet/Wound Care/Special Instructions: Activity Limited until follow-up Follow-up with primary care provider upon discharge Continue with Librium taper and avoid alcohol follow up with community mental health outpatient continue with counseling services Continue current diet Discharge Disposition: HOME SELF-CARE
[2020-08-01] MEDS ORDERED: ERGOCALCIFEROL 1,250 MCG (50,000 IU) CAPSULE PO SCH (09:00)
== END 2020-07-31 12:54 | disposition home or self-care (01) ==
LOC: EC 06:43 → 6NMEDSUR 08:38
PROVIDERS: ADMIT Internal Medicine; ATTEND Internal Medicine
DX: F10.139 Alcohol abuse with withdrawal, unspecified (principal); F22 Delusional disorders; R11.0 Nausea; R42 Dizziness and giddiness; M79.605 Pain in left leg; M79.604 Pain in right leg; K21.9 Gastro-esophageal reflux disease without esophagitis; E66.9 Obesity, unspecified; Z68.31 Body mass index [BMI] 31.0-31.9, adult; R00.0 Tachycardia, unspecified; R82.71 Bacteriuria; G47.00 Insomnia, unspecified; K70.10 Alcoholic hepatitis without ascites; I10 Essential (primary) hypertension; R07.89 Other chest pain; F41.9 Anxiety disorder, unspecified; F31.9 Bipolar disorder, unspecified; Z79.899 Other long term (current) drug therapy; Z90.49 Acquired absence of other specified parts of digestive tract; Z87.891 Personal history of nicotine dependence; Z83.3 Family history of diabetes mellitus; Z82.49 Family history of ischemic heart disease and other diseases of the circulatory system; Z56.0 Unemployment, unspecified; Y90.8 Blood alcohol level of 240 mg/100 ml or more; K76.9 Liver disease, unspecified; Z81.1 Family history of alcohol abuse and dependence; Z81.8 Family history of other mental and behavioral disorders; Z20.822 Contact with and (suspected) exposure to COVID-19
CPT/HCPCS: 96376 ×2; 93005 ×2; 96361; 96372; 96374; 96375; 99285; 36415; 80061; 80053 ×2; 82150; 83690; 83735; 84484; 85025; 81001; 81025; 87635; 71046; G0378 ×2; G0480; J2060 ×2; J3411; C9113; 80320

== ENCOUNTER → 2020-08-17 | Outpatient (CLI) | payer OTHER ==
--- NOTE | 2020-08-17 09:13 | CT ---
EXAMINATION TYPE: CT abdomen pelvis w con DATE OF EXAM: 08/17/2020 HISTORY: elevated liver enzymes CT DLP: 1475mGycm Automated Exposure Control for Dose Reduction was Utilized. CONTRAST: CT scan of the abdomen and pelvis is performed with IV Contrast, patient injected with 100 mL of Isov ue 300. COMPARISON: CT abdomen and pelvis December 08, 2018. Ultrasound abdomen May 17, 2019 FINDINGS: LUNG BASES: No significant abnormality is appreciated. LIVER/GB: Visualized liver remains heterogeneously hypodense consistent with diffuse fatty infiltrati on. Size significantly diminished from prior. No concerning masses or ductal dilatation. PANCREAS: No significant abnormality is seen. SPLEEN: No significant abnormality is seen. ADRENALS: No significant abnormality is seen. KIDNEYS: Symmetric cortical medullary uptake and excretion without hydronephrosis seen bilaterally. BOWEL: Oral contrast reaches level of terminal ileum. Slightly low-lying cecum into right pelvis is r edemonstrated. No suspicious small or large bowel dilatation. Mild wall thickening in the right and t ransverse colon. Finding present product of poor distention. Mild prominence of fecal material in sig moid rectal colon. UTERUS/ADNEXA: Anteverted uterus. Slightly lobulated contour may reflect small fibroid disease simila r to prior. Both ovaries stable and normal in size axial image 67. Current study has rim hyperdense 1 .8 cm posterior left ovarian lesion, suspect corpus luteal cyst from recent ovulation. Scattered bila teral pelvic phleboliths redemonstrated more numerous on the left. LYMPH NODES: No greater than 1cm abdominal or pelvic lymph nodes are appreciated. OSSEOUS STRUCTURES: No significant abnormality is seen. OTHER: Small fat-containing umbilical hernia. IMPRESSION: Persistent diffuse fatty infiltration of liver. Interval resolution of prior visualized h epatomegaly. No new concerning masses or biliary ductal dilatation.
== END ==
LOC: RADCTMAIN 06:56
PROVIDERS: ATTEND Family Medicine
DX: K76.0 Fatty (change of) liver, not elsewhere classified (principal); R16.0 Hepatomegaly, not elsewhere classified
CPT/HCPCS: 74177; Q9967

== ENCOUNTER 2020-09-25 18:34 | Emergency (ER) | payer BC, OTHER ==
[2020-09-25] MEDS ORDERED: SODIUM CHLORIDE 0.9% 500 ML 500 ML IV STA (18:54)
[2020-09-25] MEDS ORDERED: SODIUM CHLORIDE 0.9% 1,000 ML IV STA (18:54)
[2020-09-25] MEDS ORDERED: ONDANSETRON 4 MG/2 ML VIAL IVP STA (18:54)
[2020-09-25] MEDS ORDERED: MORPHINE SULFATE 4 MG/ML SYRINGE IV STA (18:54)
[2020-09-25 19:10] LABS: Basophils # (A) 0.1 k/uL (0-0.2); Basophils % (A) 1 %; Eosinophils % (A) 0 %; HCT 44.8 % (34.0-46.0); Lymphocytes % (A) 30 %; MCH 31.3 pg (25.0-35.0); MCHC 33.4 g/dL (31.0-37.0); MCV 93.8 fL (80.0-100.0); Mean Platelet Volume 7.6; Monocytes # (A) 0.5 k/uL (0-1.0); Monocytes % (A) 5 %; Neutrophils % (A) 62 %; RBC 4.78 m/uL (3.80-5.40); RDW 13.7 % (11.5-15.5); WBC 9.8 k/uL (3.8-10.6)
[2020-09-25 19:15] LABS: Appearance,Urine Clear (Clear); Bacteria,Urine Rare /hpf; Bilirubin,Urine Negative (Negative); Blood,Urine Moderate (Negative); Color,Urine Light Yellow; Glucose,Urine (UA) Negative (Negative); Ketones,Urine Negative (Negative); Leukocyte Esterase,Urine Negative (Negative); Nitrite,Urine Negative (Negative); Protein,Urine Negative (Negative); RBC,Urine <1 /hpf (0-5); Specific Gravity,Urine 1.005 (1.001-1.035); Squamous Epithelial Cell,Urine <1 /hpf (0-4); Urobilinogen,Urine <2.0 mg/dL (<2.0); WBC,Urine 1 /hpf (0-5)
[2020-09-25 19:19] LABS: Platelet Count 278 k/uL (150-450)
[2020-09-25 19:35] LABS: ALT 63 U/L (4-34); AST 130 U/L (14-36); African American GFR (CKD) >90 (>60 ml/min/1.73 sqM); Albumin 4.7 g/dL (3.5-5.0); Alkaline Phosphatase 227 U/L (38-126); Anion Gap 13 mmol/L; Blood Urea Nitrogen 19 mg/dL (7-17); Calcium 9.4 mg/dL (8.4-10.2); Carbon Dioxide 26 mmol/L (22-30); Chloride 95 mmol/L (98-107); Glucose 126 mg/dL (74-99); Lipase 224 U/L (23-300); Non-African American GFR(CKD) 89 (>60 ml/min/1.73 sqM); Potassium 3.7 mmol/L (3.5-5.1); Sodium 134 mmol/L (137-145); Total Bilirubin 0.7 mg/dL (0.2-1.3); Total Protein 8.7 g/dL (6.3-8.2)
[2020-09-25] MEDS ORDERED: MAG HYDROX/AL HYDROX/SIMETH 30 ML, HYOSCYAMINE ELIXIR 10 ML, LIDOCAINE VISCOUS 2% 10 ML PO STA ×3 (20:52)
[2020-09-25] MEDS ORDERED: LORazepam 2 MG/ML INJ IV STA (20:52)
--- NOTE | 2020-09-25 21:47 | ED ---
Abdominal Pain HPI - General Chief Complaint: Abdominal Pain Stated Complaint: Abd Pain Time Seen by Provider: 09/25/20 18:43 Source: patient Mode of arrival: ambulatory Limitations: no limitations - History of Present Illness Initial Comments: 40-year-old female patient presents to the emergency department today for evaluation of nausea, vomiting, upper abdominal pain. States that she started feeling unwell this morning. States that symptoms are worsened throughout the day. States she's had one episode of vomiting, denies any hematemesis. He sta indra the pain is in upper abdomen radiates through to the back. She does have a use alcohol, stop drinking a couple of days ago did recently started on medication to aid with alcohol discontinuation. She denies any fever or chills. Denies any dark, black, bloody stools. Denies any diarrhea. States she has had elevated liver enzymes in the past. Denies history of pancreatitis. Patient denies any recent rash, cough, shortness of breath, chest pain, back pain, numbness, tingling, dizziness, weakness, hematuria, dysuria, urinary urgency, urinary frequency, headache, visual changes, or any other complaints. - Related Data Home Medications Medication Instructions Recorded Confirmed busPIRone HCl [Buspar] 10 mg PO TID 06/07/20 09/25/20 Atenolol [Tenormin] 100 mg PO DAILY 07/30/20 09/25/20 Hydrochlorothiazide 12.5 mg PO DAILY 07/30/20 09/25/20 [hydroCHLOROthiazide] Multivitamins, Thera [Multivitamin 1 tab PO DAILY 09/25/20 09/25/20 (formulary)] Previous Rx's Medication Instructions Recorded Sertraline [Zoloft] 50 mg PO DAILY 30 Days #30 tab 07/31/20 traZODone HCL [Desyrel] 50 mg PO HS PRN #10 tab 07/31/20 Famotidine [Pepcid] 20 mg PO HS #30 tablet 09/25/20 Ondansetron [Zofran ODT] 4 mg PO Q8HR PRN #15 tab 09/25/20 Sucralfate [Carafate] 1 gm PO ACHS #40 tab 09/25/20 Allergies Allergy/AdvReac Type Severity Reaction Status Date / Time No Known Allergies Allergy Verified 09/25/20 19:33 Review of Systems ROS Statement: Those systems with pertinent positive or pertinent negative responses have been documented in the HPI. ROS Other: All systems not noted in ROS Statement are negative. Past Medical History Past Medical History: Hypertension Additional Past Medical History / Comment(s): Pt recently admitted recently to [facility] on 06/27/20 with acute alcohol withdrawal/metabolic encephalopathy 2ndary to DTs/metabolic acidosis/acute alcohol hepatitis/acute renal failure and sinusitis. Other hx: ETOH abuse with alcohol withdrawal DTs History of Any Multi-Drug Resistant Organisms: None Reported Past Surgical History: Adenoidectomy, Tonsillectomy Additional Past Surgical History / Comment(s): Removal of sinus polyp, removal of embedded IUD Past Anesthesia/Blood Transfusion Reactions: No Reported Reaction Past Psychological History: Anxiety, Depression Smoking Status: Former smoker Past Alcohol Use History: Abuse, Daily, Heavy Past Drug Use History: None Reported - Past Family History Mother Family Medical History: Diabetes Mellitus Additional Family Medical History / Comment(s): "pre-diabetes" Father Family Medical History: Coronary Artery Disease (CAD), Hypertension Brother(s) Additional Family Medical History / Comment(s): bicuspid aortic valve disease General Exam Limitations: no limitations General appearance: alert, in no apparent distress, other (This is a well- developed, well-nourished adult female patient in no acute distress. Vital signs upon presentation temperature 98.3F, pulse 93, respirations 20, blood pressure 162/106, pulse ox 98% on room air.) Eye exam: Present: normal appearance, PERRL, EOMI. Absent: scleral icterus, conjunctival injection, periorbital swelling ENT exam: Present: normal exam, normal oropharynx, mucous membranes moist Respiratory exam: Present: normal lung sounds bilaterally. Absent: respiratory distress, wheezes, rales, rhonchi, stridor Cardiovascular Exam: Present: regular rate, normal rhythm, normal heart sounds. Absent: systolic murmur, diastolic murmur, rubs, gallop, clicks GI/Abdominal exam: Present: soft, tenderness (Generalized), normal bowel sounds. Absent: distended, guarding, rebound, rigid Neurological exam: Present: alert, oriented X3, CN II-XII intact Psychiatric exam: Present: normal affect, normal mood Skin exam: Present: warm, dry, intact, normal color. Absent: rash Course Vital Signs 09/25/20 09/25/20 18:37 21:55 Temperature 98.3 F 98.9 F Pulse Rate 93 82 Respiratory 20 16 Rate Blood Pressure 162/106 149/95 O2 Sat by Pulse 98 94 L Oximetry Medical Decision Making - Medical Decision Making 40-year-old female patient presents to the emergency department today for evaluation of abdominal pain, nausea, vomiting started this morning. Physical examination did reveal generalized abdominal tenderness. She is afebrile normal vitals, blood pressure initially was elevated. Labs reviewed and are relatively unremarkable, shows have some transaminitis which she states is normal. Lipase is normal. Patient was given IV fluids and pain medication. Upon reevaluation states she still feeling quite unwell. States the nausea has improved somewhat but she is having pain. We did discuss possibility of gastritis, she was given GI cocktail one dose of Ativan for possible alcohol withdrawal. Upon reevaluation she is resting comfortable in bed, states she feels much better, does feel comfortable discharge home. She'll be given prescription for Carafate, Pepcid, and Zofran. She is instructed to follow up with a minilab operator for further evaluation as soon as possible. Return parameters discussed in detail. She verbalizes understanding and agrees with this plan. Case discussed with my attending Dr. Ho. - Lab Data Result diagrams: 09/25/20 18:59 09/25/20 18:59 Lab Results 09/25/20 09/25/20 09/25/20 Range/Units 18:59 18:59 18:59 WBC 9.8 (3.8-10.6) k/uL RBC 4.78 (3.80-5.40) m/uL Hgb 15.0 (11.4-16.0) gm/dL Hct 44.8 (34.0-46.0) % MCV 93.8 (80.0-100.0) fL MCH 31.3 (25.0-35.0) pg MCHC 33.4 (31.0-37.0) g/dL RDW 13.7 (11.5-15.5) % Plt Count 278 D (150-450) k/uL MPV 7.6 Neutrophils % 62 % Lymphocytes % 30 % Monocytes % 5 % Eosinophils % 0 % Basophils % 1 % Neutrophils # 6.0 (1.3-7.7) k/uL Lymphocytes # 3.0 (1.0-4.8) k/uL Monocytes # 0.5 (0-1.0) k/uL Eosinophils # 0.0 (0-0.7) k/uL Basophils # 0.1 (0-0.2) k/uL Sodium 134 L (137-145) mmol/L Potassium 3.7 (3.5-5.1) mmol/L Chloride 95 L (98-107) mmol/L Carbon Dioxide 26 (22-30) mmol/L Anion Gap 13 mmol/L BUN 19 H (7-17) mg/dL Creatinine 0.83 (0.52-1.04) mg/dL Est GFR (CKD-EPI)AfAm >90 (>60 ml/min/1.73 sqM) Est GFR (CKD-EPI)NonAf 89 (>60 ml/min/1.73 sqM) Glucose 126 H (74-99) mg/dL Calcium 9.4 (8.4-10.2) mg/dL Total Bilirubin 0.7 (0.2-1.3) mg/dL AST 130 H (14-36) U/L ALT 63 H (4-34) U/L Alkaline Phosphatase 227 H (38-126) U/L Troponin I (0.000-0.034) ng/mL Total Protein 8.7 H (6.3-8.2) g/dL Albumin 4.7 (3.5-5.0) g/dL Lipase 224 (23-300) U/L Urine Color Light Yellow Urine Appearance Clear (Clear) Urine pH 7.0 (5.0-8.0) Ur Specific [place] 1.005 (1.001-1.035) Urine Protein Negative (Negative) Urine Glucose (UA) Negative (Negative) Urine Ketones Negative (Negative) Urine Blood Moderate H (Negative) Urine Nitrite Negative (Negative) Urine Bilirubin Negative (Negative) Urine Urobilinogen <2.0 (<2.0) mg/dL Ur Leukocyte Esterase Negative (Negative) Urine RBC <1 (0-5) /hpf Urine WBC 1 (0-5) /hpf Ur Squamous Epith Cells <1 (0-4) /hpf Urine Bacteria Rare H (None) /hpf 09/25/20 Range/Units 18:59 WBC (3.8-10.6) k/uL RBC (3.80-5.40) m/uL Hgb (11.4-16.0) gm/dL Hct (34.0-46.0) % MCV (80.0-100.0) fL MCH (25.0-35.0) pg MCHC (31.0-37.0) g/dL RDW (11.5-15.5) % Plt Count (150-450) k/uL MPV Neutrophils % % Lymphocytes % % Monocytes % % Eosinophils % % Basophils % % Neutrophils # (1.3-7.7) k/uL Lymphocytes # (1.0-4.8) k/uL Monocytes # (0-1.0) k/uL Eosinophils # (0-0.7) k/uL Basophils # (0-0.2) k/uL Sodium (137-145) mmol/L Potassium (3.5-5.1) mmol/L Chloride (98-107) mmol/L Carbon Dioxide (22-30) mmol/L Anion Gap mmol/L BUN (7-17) mg/dL Creatinine (0.52-1.04) mg/dL Est GFR (CKD-EPI)AfAm (>60 ml/min/1.73 sqM) Est GFR (CKD-EPI)NonAf (>60 ml/min/1.73 sqM) Glucose (74-99) mg/dL Calcium (8.4-10.2) mg/dL Total Bilirubin (0.2-1.3) mg/dL AST (14-36) U/L ALT (4-34) U/L Alkaline Phosphatase (38-126) U/L Troponin I <0.012 (0.000-0.034) ng/mL Total Protein (6.3-8.2) g/dL Albumin (3.5-5.0) g/dL Lipase (23-300) U/L Urine Color Urine Appearance (Clear) Urine pH (5.0-8.0) Ur Specific [place] (1.001-1.035) Urine Protein (Negative) Urine Glucose (UA) (Negative) Urine Ketones (Negative) Urine Blood (Negative) Urine Nitrite (Negative) Urine Bilirubin (Negative) Urine Urobilinogen (<2.0) mg/dL Ur Leukocyte Esterase (Negative) Urine RBC (0-5) /hpf Urine WBC (0-5) /hpf Ur Squamous Epith Cells (0-4) /hpf Urine Bacteria (None) /hpf Disposition Clinical Impression: Abdominal pain, Vomiting Disposition: HOME SELF-CARE Condition: Good Instructions (If sedation given, give patient instructions): Acute Nausea and Vomiting (ED), Abdominal Pain (ED) Additional Instructions: Take medications as directed. Follow-up the primary care physician for recheck in 1-2 days. Return for any new, worsening, or concerning symptoms. Prescriptions: Sucralfate [Carafate] 1 gm PO ACHS #40 tab Famotidine [Pepcid] 20 mg PO HS #30 tablet Ondansetron [Zofran ODT] 4 mg PO Q8HR PRN #15 tab PRN Reason: Nausea Is patient prescribed a controlled substance at d/c from ED?: No Referrals: Larissa Patricia MD [Primary Care Provider] - 1-2 days Time of Disposition: 21:47
[2020-09-25 21:56] VITALS: BP 149/95; PULSE 82; RESP 16; TEMP 98.9
== END 2020-09-25 21:55 | disposition home or self-care (01) ==
LOC: EC 18:34
DX: R10.10 Upper abdominal pain, unspecified (principal); R11.10 Vomiting, unspecified; R10.817 Generalized abdominal tenderness; I10 Essential (primary) hypertension; F41.9 Anxiety disorder, unspecified; F32.9 Major depressive disorder, single episode, unspecified; Z79.899 Other long term (current) drug therapy; Z87.891 Personal history of nicotine dependence
CPT/HCPCS: 36415; 93005; 80053; 83690; 84484; 85025; 81001; 99284; 96374; 96375 ×2; 96361 ×2; J2060; J2270; J2405

== ENCOUNTER → 2020-10-15 | Outpatient (CLI) | payer OTHER ==
[2020-10-15 18:59] LABS: HCT 40.2 % (37.2-46.3); HGB 13.2 g/dL (12.0-15.0); MCH 31.9 pg (27.0-32.0); MCHC 32.8 g/dL (32.0-37.0); MCV 97.1 fL (80.0-97.0); Mean Platelet Volume 10.7 fL (9.5-12.2); Platelet Count 355 X 10*3/uL (140-440); RBC 4.14 X 10*6/uL (4.10-5.20); RDW 13.1 % (11.5-14.5); WBC 9.81 X 10*3/uL (4.50-10.00)
[2020-10-15 21:04] LABS: Alpha Fetoprotein, Tumor Mkr 2.8 ng/mL (0.0-7.9)
[2020-10-15 21:17] LABS: INR 1.05 (0.90-1.11); Prothrombin Time 11.4 sec (9.9-11.9)
[2020-10-15 21:32] LABS: ALT 41 U/L (8-44); AST 47 U/L (13-35); Albumin/Globulin Ratio 1.42 (1.60-3.17); Alkaline Phosphatase 163 U/L (41-126); Bilirubin, Conjugated <0.20 mg/dL (0.20-0.40); Globulin 3.3 g/dL (1.6-3.3); Total Bilirubin 0.5 mg/dL (0.3-1.2)
[2020-10-16 12:51] LABS: Hepatitis A Antibody IgM Non-Reactive (Non-Reactive); Hepatitis B Core IgM Non-Reactive (Non-Reactive); Hepatitis B Surface Antigen Non-Reactive (Non-Reactive); Hepatitis C IgG Antibody Non-Reactive (Non-Reactive)
== END | disposition home or self-care (01) ==
LOC: LABWHC1 11:23
PROVIDERS: ATTEND Physician Assistant
DX: R74.01 Elevation of levels of liver transaminase levels (principal)
CPT/HCPCS: 36415; 80074; 80076; 81596; 82105; 85027; 85610

== ENCOUNTER 2020-11-16 17:57 | Emergency (ER) | payer OTHER ==
[2020-11-16 18:07] VITALS: RESP 18; TEMP 99.5
[2020-11-16] MEDS ORDERED: SODIUM CHLORIDE 0.9% 1,000 ML IV STA (18:30)
--- NOTE | 2020-11-16 18:34 | ED ---
General Adult HPI - General Chief complaint: Recheck/Abnormal Lab/Rx Stated complaint: High BP Time Seen by Provider: 11/16/20 18:15 Source: patient, RN notes reviewed Mode of arrival: ambulatory Limitations: no limitations - History of Present Illness Initial comments: Patient is a 40-year-old female that presents to emergency department complaining of high blood pressure. She notes that she took twice the amount of blood pressure medication today hoping would come down. She notes that she is currently fighting a sinus infection and some GI issues that she is following up with a specialist for. She notes that yesterday she was in bed all day as she felt a little under the weather. She notes that she does have the Covid vaccination. She also states that she is typically very anxious person is on medication for it is currently not taking one of them. She can emergency room to get evaluated for high blood pressure. She denied any changes in vision or son onset headaches. She did note she does feel congested from her sinus infection. She was in no apparent distress or pain while sitting up in bed during the examination. She denied any chest pain shortness of breath nausea vomiting abnormal diarrhea constipation fever fatigue chills. - Related Data Home Medications Medication Instructions Recorded Confirmed busPIRone HCl [Buspar] 10 mg PO TID 06/07/20 09/25/20 Atenolol [Tenormin] 100 mg PO DAILY 07/30/20 09/25/20 Hydrochlorothiazide 12.5 mg PO DAILY 07/30/20 09/25/20 [hydroCHLOROthiazide] Multivitamins, Thera [Multivitamin 1 tab PO DAILY 09/25/20 09/25/20 (formulary)] Previous Rx's Medication Instructions Recorded Sertraline [Zoloft] 50 mg PO DAILY 30 Days #30 tab 07/31/20 traZODone HCL [Desyrel] 50 mg PO HS PRN #10 tab 07/31/20 Famotidine [Pepcid] 20 mg PO HS #30 tablet 09/25/20 Ondansetron [Zofran ODT] 4 mg PO Q8HR PRN #15 tab 09/25/20 Sucralfate [Carafate] 1 gm PO ACHS #40 tab 09/25/20 Allergies Allergy/AdvReac Type Severity Reaction Status Date / Time No Known Allergies Allergy Verified 11/16/20 18:07 Review of Systems ROS Statement: Those systems with pertinent positive or pertinent negative responses have been documented in the HPI. ROS Other: All systems not noted in ROS Statement are negative. Past Medical History Past Medical History: Hypertension Additional Past Medical History / Comment(s): Pt recently admitted recently to [facility] on 06/27/20 with acute alcohol withdrawal/metabolic encephalopathy 2ndary to DTs/metabolic acidosis/acute alcohol hepatitis/acute renal failure and sinusitis. Other hx: ETOH abuse with alcohol withdrawal DTs History of Any Multi-Drug Resistant Organisms: None Reported Past Surgical History: Adenoidectomy, Tonsillectomy Additional Past Surgical History / Comment(s): Removal of sinus polyp, removal of embedded IUD Past Anesthesia/Blood Transfusion Reactions: No Reported Reaction Past Psychological History: Anxiety, Depression Smoking Status: Former smoker Past Alcohol Use History: Occasional Past Drug Use History: None Reported - Past Family History Mother Family Medical History: Diabetes Mellitus Additional Family Medical History / Comment(s): "pre-diabetes" Father Family Medical History: Coronary Artery Disease (CAD), Hypertension Brother(s) Additional Family Medical History / Comment(s): bicuspid aortic valve disease General Exam Limitations: no limitations General appearance: alert, in no apparent distress, obese Head exam: Present: atraumatic, normocephalic, normal inspection Eye exam: Present: normal appearance, PERRL, EOMI. Absent: scleral icterus, conjunctival injection, periorbital swelling Neck exam: Present: normal inspection Respiratory exam: Present: normal lung sounds bilaterally. Absent: respiratory distress, wheezes, rales, rhonchi, stridor Cardiovascular Exam: Present: regular rate, normal rhythm, normal heart sounds. Absent: systolic murmur, diastolic murmur, rubs, gallop, clicks GI/Abdominal exam: Present: soft, normal bowel sounds. Absent: distended, tenderness, guarding, rebound, rigid Extremities exam: Present: normal inspection, full ROM, normal capillary refill. Absent: tenderness, pedal edema, joint swelling, calf tenderness Neurological exam: Present: alert, oriented X3 Psychiatric exam: Present: normal affect, normal mood Skin exam: Present: warm, dry, intact, normal color. Absent: rash Course Vital Signs 11/16/20 11/16/20 11/16/20 18:04 19:07 20:00 Temperature 99.5 F Pulse Rate 99 76 84 Respiratory 18 18 18 Rate Blood Pressure 173/99 130/94 124/95 O2 Sat by Pulse 97 98 97 Oximetry EKG Findings - EKG Comments: EKG Findings:: Ventricular rate 76 bpm, WA interval 138 ms, QRS duration 76 ms, QTc 416 ms, PRT axes 32. Normal sinus rhythm, normal ECG. Medical Decision Making - Medical Decision Making 40-year-old female complaining of high blood pressure, she took twice her daily dose of blood pressure initially home. Labs, EKG, cardiac nurse practitioner, 1 L normal saline ordered. Labs unremarkable. Case discussed with Dr. Reza, patient will discharge home with follow-up to primary care. - Lab Data Result diagrams: 11/16/20 18:46 11/16/20 18:46 Lab Results 11/16/20 11/16/20 11/16/20 Range/Units 18:46 18:46 18:46 WBC 14.3 H (3.8-10.6) k/uL RBC 4.57 (3.80-5.40) m/uL Hgb 14.3 (11.4-16.0) gm/dL Hct 43.9 (34.0-46.0) % MCV 96.1 (80.0-100.0) fL MCH 31.4 (25.0-35.0) pg MCHC 32.7 (31.0-37.0) g/dL RDW 14.1 (11.5-15.5) % Plt Count 78 L D (150-450) k/uL MPV 11.8 Neutrophils % 85 % Lymphocytes % 10 % Monocytes % 3 % Eosinophils % 1 % Basophils % 0 % Neutrophils # 12.2 H (1.3-7.7) k/uL Lymphocytes # 1.5 (1.0-4.8) k/uL Monocytes # 0.4 (0-1.0) k/uL Eosinophils # 0.1 (0-0.7) k/uL Basophils # 0.0 (0-0.2) k/uL Manual Slide Review Performed Large Platelets Present PT 11.2 (9.0-12.0) sec INR 1.1 (<1.2) APTT 22.4 (22.0-30.0) sec Sodium (137-145) mmol/L Potassium (3.5-5.1) mmol/L Chloride (98-107) mmol/L Carbon Dioxide (22-30) mmol/L Anion Gap mmol/L BUN (7-17) mg/dL Creatinine (0.52-1.04) mg/dL Est GFR (CKD-EPI)AfAm (>60 ml/min/1.73 sqM) Est GFR (CKD-EPI)NonAf (>60 ml/min/1.73 sqM) Glucose (74-99) mg/dL Calcium (8.4-10.2) mg/dL Magnesium (1.6-2.3) mg/dL Total Bilirubin (0.2-1.3) mg/dL AST (14-36) U/L ALT (4-34) U/L Alkaline Phosphatase (38-126) U/L Troponin I (0.000-0.034) ng/mL Total Protein (6.3-8.2) g/dL Albumin (3.5-5.0) g/dL Urine Color Yellow Urine Appearance Clear (Clear) Urine pH 6.0 (5.0-8.0) Ur Specific [place] 1.015 (1.001-1.035) Urine Protein Negative (Negative) Urine Glucose (UA) Negative (Negative) Urine Ketones Negative (Negative) Urine Blood Small (Negative) Urine Nitrite Negative (Negative) Urine Bilirubin Negative (Negative) Urine Urobilinogen <0.2 (<2.0) mg/dL Ur Leukocyte Esterase Negative (Negative) Urine RBC 3 (0-5) /hpf Urine WBC <1 (0-5) /hpf Ur Squamous Epith Cells 1 (0-4) /hpf Urine Bacteria Rare H (None) /hpf 11/16/20 11/16/20 Range/Units 18:46 18:46 WBC (3.8-10.6) k/uL RBC (3.80-5.40) m/uL Hgb (11.4-16.0) gm/dL Hct (34.0-46.0) % MCV (80.0-100.0) fL MCH (25.0-35.0) pg MCHC (31.0-37.0) g/dL RDW (11.5-15.5) % Plt Count (150-450) k/uL MPV Neutrophils % % Lymphocytes % % Monocytes % % Eosinophils % % Basophils % % Neutrophils # (1.3-7.7) k/uL Lymphocytes # (1.0-4.8) k/uL Monocytes # (0-1.0) k/uL Eosinophils # (0-0.7) k/uL Basophils # (0-0.2) k/uL Manual Slide Review Large Platelets PT (9.0-12.0) sec INR (<1.2) APTT (22.0-30.0) sec Sodium 134 L (137-145) mmol/L Potassium 2.9 L (3.5-5.1) mmol/L Chloride 97 L (98-107) mmol/L Carbon Dioxide 25 (22-30) mmol/L Anion Gap 12 mmol/L BUN 13 (7-17) mg/dL Creatinine 0.89 (0.52-1.04) mg/dL Est GFR (CKD-EPI)AfAm >90 (>60 ml/min/1.73 sqM) Est GFR (CKD-EPI)NonAf 81 (>60 ml/min/1.73 sqM) Glucose 163 H (74-99) mg/dL Calcium 9.1 (8.4-10.2) mg/dL Magnesium 1.8 (1.6-2.3) mg/dL Total Bilirubin 2.8 H (0.2-1.3) mg/dL AST 299 H (14-36) U/L ALT 170 H (4-34) U/L Alkaline Phosphatase 285 H (38-126) U/L Troponin I <0.012 (0.000-0.034) ng/mL Total Protein 7.5 (6.3-8.2) g/dL Albumin 4.1 (3.5-5.0) g/dL Urine Color Urine Appearance (Clear) Urine pH (5.0-8.0) Ur Specific [place] (1.001-1.035) Urine Protein (Negative) Urine Glucose (UA) (Negative) Urine Ketones (Negative) Urine Blood (Negative) Urine Nitrite (Negative) Urine Bilirubin (Negative) Urine Urobilinogen (<2.0) mg/dL Ur Leukocyte Esterase (Negative) Urine RBC (0-5) /hpf Urine WBC (0-5) /hpf Ur Squamous Epith Cells (0-4) /hpf Urine Bacteria (None) /hpf - EKG Data -: EKG Interpreted by Me EKG shows normal: sinus rhythm Rate: normal EKG Comments: Ventricular rate 76 bpm, WA interval 138 ms, QRS duration 76 ms, QTc 416 ms, PRT axes 32/8/23. Normal sinus rhythm, normal ECG. - Radiology Data Radiology results: report reviewed, image reviewed Chest x-ray: No acute pulmonary process. Disposition Clinical Impression: High blood pressure Disposition: HOME SELF-CARE Condition: Stable Instructions (If sedation given, give patient instructions): Chronic Hypertension (ED) Additional Instructions: Please return to the Emergency Department if symptoms worsen or any other concerns. Follow-up with primary care in the next 1-2 days. Increase oral fluids. Continue to take at home medications as prescribed. Is patient prescribed a controlled substance at d/c from ED?: No Referrals: Larissa Patricia MD [Primary Care Provider] - 1-2 days Time of Disposition: 20:30
--- NOTE | 2020-11-16 19:08 | XR ---
EXAMINATION TYPE: XR chest 2V DATE OF EXAM: 11/16/2020 COMPARISON: 07/30/2020 INDICATION: Chest pain TECHNIQUE: Frontal and lateral views of the chest are obtained. FINDINGS: The heart size is normal. The pulmonary vasculature is normal. The lungs are clear. IMPRESSION: 1. No acute pulmonary process.
[2020-11-16 19:21] LABS: Basophils % (A) 0 %; Eosinophils # (A) 0.1 k/uL (0-0.7); Eosinophils % (A) 1 %; HCT 43.9 % (34.0-46.0); HGB 14.3 gm/dL (11.4-16.0); Lymphocytes # (A) 1.5 k/uL (1.0-4.8); Lymphocytes % (A) 10 %; MCH 31.4 pg (25.0-35.0); MCHC 32.7 g/dL (31.0-37.0); MCV 96.1 fL (80.0-100.0); Mean Platelet Volume 11.8; Monocytes # (A) 0.4 k/uL (0-1.0); Monocytes % (A) 3 %; Neutrophils # (A) 12.2 k/uL (1.3-7.7); Neutrophils % (A) 85 %; RBC 4.57 m/uL (3.80-5.40); RDW 14.1 % (11.5-15.5); WBC 14.3 k/uL (3.8-10.6)
[2020-11-16 19:25] LABS: ALT 170 U/L (4-34); AST 299 U/L (14-36); African American GFR (CKD) >90 (>60 ml/min/1.73 sqM); Albumin 4.1 g/dL (3.5-5.0); Alkaline Phosphatase 285 U/L (38-126); Anion Gap 12 mmol/L; Blood Urea Nitrogen 13 mg/dL (7-17); Calcium 9.1 mg/dL (8.4-10.2); Carbon Dioxide 25 mmol/L (22-30); Chloride 97 mmol/L (98-107); Glucose 163 mg/dL (74-99); Magnesium 1.8 mg/dL (1.6-2.3); Non-African American GFR(CKD) 81 (>60 ml/min/1.73 sqM); Potassium 2.9 mmol/L (3.5-5.1); Sodium 134 mmol/L (137-145); Total Bilirubin 2.8 mg/dL (0.2-1.3); Total Protein 7.5 g/dL (6.3-8.2)
[2020-11-16] MEDS ORDERED: POTASSIUM CHLORIDE ER 20 MEQ TAB.ER PO STA (19:26)
[2020-11-16 19:27] LABS: INR 1.1 (<1.2); Partial Thromboplastin Time 22.4 sec (22.0-30.0); Prothrombin Time 11.2 sec (9.0-12.0)
[2020-11-16 19:36] LABS: Platelet Count 78 k/uL (150-450)
[2020-11-16 19:39] LABS: Appearance,Urine Clear (Clear); Color,Urine Yellow; Specific Gravity,Urine 1.015 (1.001-1.035)
[2020-11-16 19:40] LABS: Bilirubin,Urine Negative (Negative); Blood,Urine Small (Negative); Glucose,Urine (UA) Negative (Negative); Ketones,Urine Negative (Negative); Leukocyte Esterase,Urine Negative (Negative); Nitrite,Urine Negative (Negative); Protein,Urine Negative (Negative); Urobilinogen,Urine <0.2 mg/dL (<2.0)
[2020-11-16 19:41] LABS: Bacteria,Urine Rare /hpf; RBC,Urine 3 /hpf (0-5); Squamous Epithelial Cell,Urine 1 /hpf (0-4); WBC,Urine <1 /hpf (0-5)
[2020-11-16 20:03] VITALS: BP 124/95; PULSE 84
[2020-11-16 20:07] LABS: Large Platelets Present
== END 2020-11-16 20:42 | disposition home or self-care (01) ==
LOC: EC 17:57
DX: I10 Essential (primary) hypertension (principal); F32.9 Major depressive disorder, single episode, unspecified; F41.9 Anxiety disorder, unspecified; Z87.891 Personal history of nicotine dependence
CPT/HCPCS: 36415; 71046; 80053; 81001; 83735; 84484; 85025; 85610; 85730; 93005; 96360; 99284

== ENCOUNTER → 2020-11-26 | Outpatient (CLI) | payer BC, OTHER | END | disposition home or self-care (01) | LOC: RADMAMWWP 07:06 | PROVIDERS: ATTEND Family Medicine | DX: Z53.9 Procedure and treatment not carried out, unspecified reason (principal) ==

== ENCOUNTER 2020-11-27 10:33 | Day surgery (SDC) | payer OTHER ==
[2020-11-24 15:02] VITALS: BMI 32.5
[~2020-11-27 10:33] MED LIST: LACTATED RINGERS 1,000 ML IV SCH; LIDOCAINE 1% (10MG/ML) FOR IV START INTRADERMA PRN
[2020-11-27 11:20] VITALS: RESP 16; TEMP 96.7
[2020-11-27] MEDS ORDERED: MIDAZOLAM 2 MG/2 ML VIAL IVP ONE (11:30)
[2020-11-27] MEDS ORDERED: LIDOCAINE 1% INJ 10MG/ML (20 ML MDV) ONE (12:19)
[2020-11-27] MEDS ORDERED: PROPOFOL 10 MG/ML 20 ML VIAL IV ONE (12:19)
--- NOTE | 2020-11-27 12:36 | P.PCN ---
Date of Procedure: 11/27/20 Procedure(s) Performed: Brief history: Patient is a pleasant 40-year-old white female scheduled for an elective upper endoscopy as well as colonoscopy as a part of evaluation of abdominal pain, abdominal bloating, GERD symptoms and chronic diarrhea for the last 6 months duration Procedure performed: Esophagogastroduodenoscopy with biopsy Colonoscopy with biopsy Preoperative diagnosis: GERD, abdominal bloating Chronic diarrhea Anesthesia: MAC Procedure: After informed consent was obtained from the patient was brought into the endoscopy unit and IV sedation was administered by anesthesia under continuous monitoring. Initially upper endoscopy was done. The Olympus GF 160 video endoscope was inserted inserted into the mouth and esophagus intubated without any difficulty and was gradually advanced into the stomach and duodenum and carefully examined. The bulb and second part of the duodenum appeared normal. Abscesses were done from the duodenum to rule out celiac disease. The scope was then withdrawn into the stomach adequately insufflated with air and upon careful examination the antrum had mild antral gastritis and biopsies were done from this area. The body, cardia and fundus appeared normal. The scope was then withdrawn into the esophagus. The GE junction was located at 40 cm to the incisors. It appeared regular with no erythema erosions or ulcerations. Rest of the esophagus appeared normal. Patient tolerated the procedure well. At this time the patient continued to remain sedation. Initial digital rectal examination was normal. Olympus CF 160 video colonoscope was then inserted into the rectum and gradually advanced to the cecum without any difficulty. Careful examination was performed as the scope was gradually being withdrawn. The prep was excellent. The cecum, ascending colon, transverse colon, descending colon, sigmoid colon and rectum appeared normal. Random biopsies were done from ascending and descending colon to rule out microscopic/collagenous colitis. Retroflexion was performed in the rectum and no lesions were noted. Patient madison erated the procedure well. Impression: 1. Upper endoscopy revealed minimal antral gastritis but no evidence of esophagitis or peptic ulcer disease 2. Colonoscopy was within normal limits. No evidence of colorectal neoplasia. Recommendations: Findings of this examination were discussed with the patient as well as for family. She was advised to follow with the biopsy results She will be seen in office in one to 2 weeks..
[2020-11-27 12:58] VITALS: BP 126/86; PULSE 64
== END 2020-11-27 13:12 | disposition home or self-care (01) ==
LOC: ORWHC2ENDO 10:33
PROVIDERS: ATTEND Internal Medicine Gastroenterology
DX: K29.50 Unspecified chronic gastritis without bleeding (principal); K21.9 Gastro-esophageal reflux disease without esophagitis; K52.9 Noninfective gastroenteritis and colitis, unspecified; Z79.899 Other long term (current) drug therapy; I10 Essential (primary) hypertension; F10.10 Alcohol abuse, uncomplicated; Z90.89 Acquired absence of other organs; F41.9 Anxiety disorder, unspecified; F32.9 Major depressive disorder, single episode, unspecified
CPT/HCPCS: 81025; 88305; 45380; 43239; J2250; J2001; J2704

== ENCOUNTER → 2020-12-01 | Outpatient (CLI) | payer OTHER | END | disposition home or self-care (01) | DX: Z12.31 Encounter for screening mammogram for malignant neoplasm of breast (principal) | CPT/HCPCS: 77067 ==

== ENCOUNTER 2021-06-10 12:24 | Inpatient (IN) | payer OTHER ==
[2021-06-10] MEDS ORDERED: SODIUM CHLORIDE 0.9% 1,000 ML IV STA (13:44)
--- NOTE | 2021-06-10 14:21 | ED ---
General Adult HPI - General Chief complaint: Recheck/Abnormal Lab/Rx Stated complaint: jaundice Time Seen by Provider: 06/10/21 13:28 Source: patient, RN notes reviewed Mode of arrival: ambulatory Limitations: no limitations - History of Present Illness Initial comments: This is a pleasant 41-year-old female with a history of alcoholism. She presents the emergency room today complaining of jaundice. Patient states she started getting a sinus infection on [place] and has been taking [id number] NyQuil and DayQuil daily. Patient states that 2 days ago she started noticing the jaundice. Patient states that she previously has had jaundice secondary to alcoholic hepatitis. Does admit to drinking alcohol on . She states she has not had any alcohol since then. She denies any current symptomology. States her sinus infection is actually improved. No shortness breath or chest pain. No fever cough. No abdominal pain. No nausea or vomiting. No Crohn's with urination or bowel movements. Patient does note that her urine is dark. She contacted her primary care doctor was instructed to come to the emergency department for liver function tests and an acetaminophen level. - Related Data Home Medications Medication Instructions Recorded Confirmed busPIRone HCl [Buspar] 10 mg PO TID PRN 06/07/20 06/10/21 Atenolol [Tenormin] 100 mg PO DAILY 07/30/20 06/10/21 Hydrochlorothiazide 12.5 mg PO DAILY 07/30/20 06/10/21 [hydroCHLOROthiazide] Multivitamin [Multivitamins Adult 1 tab PO DAILY 06/10/21 06/10/21 Gummies] Omeprazole 20 mg PO DAILY 06/10/21 06/10/21 traZODone HCL 50 - 100 mg PO HS PRN 06/10/21 06/10/21 Previous Rx's Medication Instructions Recorded Sertraline [Zoloft] 50 mg PO DAILY 30 Days #30 tab 07/31/20 Allergies Allergy/AdvReac Type Severity Reaction Status Date / Time No Known Allergies Allergy Verified 06/10/21 16:03 Review of Systems ROS Statement: Those systems with pertinent positive or pertinent negative responses have been documented in the HPI. ROS Other: All systems not noted in ROS Statement are negative. Past Medical History Past Medical History: Hypertension Additional Past Medical History / Comment(s): Pt recently admitted recently to [facility] on 06/27/20 with acute alcohol withdrawal/metabolic encephalopathy 2ndary to DTs/metabolic acidosis/acute alcohol hepatitis/acute renal failure and sinusitis. Other hx: ETOH abuse with alcohol withdrawal DTs History of Any Multi-Drug Resistant Organisms: None Reported Past Surgical History: Adenoidectomy, Tonsillectomy Additional Past Surgical History / Comment(s): Removal of sinus polyp, removal of embedded IUD Past Anesthesia/Blood Transfusion Reactions: No Reported Reaction Past Psychological History: Anxiety, Depression Smoking Status: Former smoker Past Alcohol Use History: Occasional Past Drug Use History: None Reported - Past Family History Mother Family Medical History: Diabetes Mellitus Additional Family Medical History / Comment(s): "Pre-Diabetes." Father Family Medical History: Coronary Artery Disease (CAD), Hypertension Brother(s) Additional Family Medical History / Comment(s): Bicuspid Aortic Valve Disease. General Exam - General Exam Comments Initial Comments: Patient does not appear to be in any acute distress. Not ill or toxic. Afeb rile. Vital signs stable, patient afebrile. Limitations: no limitations General appearance: alert, in no apparent distress Head exam: Present: atraumatic, normocephalic, normal inspection Eye exam: Present: PERRL, EOMI, scleral icterus. Absent: conjunctival injection, periorbital swelling ENT exam: Present: normal exam, mucous membranes moist Neck exam: Present: normal inspection. Absent: tenderness, meningismus, lymphadenopathy Respiratory exam: Present: normal lung sounds bilaterally. Absent: respiratory distress, wheezes, rales, rhonchi, stridor Cardiovascular Exam: Present: regular rate, normal rhythm, normal heart sounds. Absent: systolic murmur, diastolic murmur, rubs, gallop, clicks GI/Abdominal exam: Present: soft, normal bowel sounds. Absent: distended, tenderness, guarding, rebound, rigid Extremities exam: Present: normal inspection, full ROM, normal capillary refill. Absent: tenderness, pedal edema, joint swelling, calf tenderness Back exam: Present: normal inspection Neurological exam: Present: alert, oriented X3, CN II-XII intact Psychiatric exam: Present: normal affect, normal mood Skin exam: Present: warm, dry, intact, other (Jaundice noted). Absent: rash Course Vital Signs 01/06/22 01/06/22 13:20 16:20 Temperature 97.9 F 98.6 F Pulse Rate 73 70 Respiratory 18 16 Rate Blood Pressure 152/96 132/84 O2 Sat by Pulse 98 98 Oximetry - Reevaluation(s) Reevaluation #1: 06/10/21 16:14 Reevaluation is resting A bed. No acute distress. CT ordered. Case discussed with the attending physician. Reevaluation #2: 06/10/21 18:00 Patient reevaluation is resting comfortably in the room. Hemodialysis stable. Vital signs stable, patient afebrile. Reevaluation #3: 06/10/21 18:47 Patient reevaluated, he is stable, no change in status. Awaiting call from the receiving hospital. Medical Decision Making - Medical Decision Making Patient presents with jaundice after having upper respiratory infection. Patient states she took in about patient COVID-19 test which was negative. Patient states her upper risk for infection is actually resolving but after using DayQuil and NyQuil daily since she is developed jaundice. Patient states she has not had alcohol since . History of alcoholic hepatitis. We will draw liver function tests, basic lab work, acetaminophen level, toxicology level, we'll obtain a COVID-19 test as the patient did have the upper respiratory symptoms. Jaundice 2 days. The case was discussed in detail with ED attending physician. Presentation, findings, treatment plan discussed in detail. Decision was made to transfer the patient. Patient's computed tomography scan shows splenic cyst with no other acute pathology other than hepatic steatosis. Case was discussed in detail with ED attending physician, Dr. Ng. [facility] has no current gastroenterology coverage. Nearest available facility was [facility]. Patient is agreeable to transfer. Case discussed with transfer center at 1750. We tried transfer to several institutions in [facility] all of which were full and were diverting patients. coverage. Dr. Ng then discussed the case with Dr. Gallegos who agreed to keep the patient. - Lab Data Result diagrams: 06/10/21 14:52 06/10/21 14:52 Lab Results 06/10/21 06/10/21 06/10/21 Range/Units 14:52 14:52 14:52 WBC 10.0 (3.8-10.6) k/uL RBC 3.79 L (3.80-5.40) m/uL Hgb 12.9 (11.4-16.0) gm/dL Hct 38.9 (34.0-46.0) % MCV 102.7 H (80.0-100.0) fL MCH 34.2 (25.0-35.0) pg MCHC 33.3 (31.0-37.0) g/dL RDW 17.8 H (11.5-15.5) % Plt Count 134 L (150-450) k/uL MPV 9.6 Neutrophils % 71 % Lymphocytes % 19 % Monocytes % 6 % Eosinophils % 1 % Basophils % 1 % Neutrophils # 7.1 (1.3-7.7) k/uL Lymphocytes # 1.9 (1.0-4.8) k/uL Monocytes # 0.6 (0-1.0) k/uL Eosinophils # 0.1 (0-0.7) k/uL Basophils # 0.1 (0-0.2) k/uL Anisocytosis Slight Macrocytosis Moderate PT 11.1 (9.0-12.0) sec INR 1.1 (<1.2) APTT 24.6 (22.0-30.0) sec Sodium (137-145) mmol/L Potassium (3.5-5.1) mmol/L Chloride (98-107) mmol/L Carbon Dioxide (22-30) mmol/L Anion Gap mmol/L BUN (7-17) mg/dL Creatinine (0.52-1.04) mg/dL Est GFR (CKD-EPI)AfAm (>60 ml/min/1.73 sqM) Est GFR (CKD-EPI)NonAf (>60 ml/min/1.73 sqM) Glucose (74-99) mg/dL Calcium (8.4-10.2) mg/dL Magnesium (1.6-2.3) mg/dL Total Bilirubin (0.2-1.3) mg/dL Conjugated Bilirubin (0.0-0.3) mg/dL Unconjugated Bilirubin (0.0-1.1) mg/dL Delta Bilirubin (0.0-0.2) mg/dL AST (14-36) U/L ALT (4-34) U/L Alkaline Phosphatase (38-126) U/L Total Protein (6.3-8.2) g/dL Albumin (3.5-5.0) g/dL Amylase (30-110) U/L Lipase (23-300) U/L HCG, Quant mIU/mL Urine Color Dark Yellow Urine Appearance Clear (Clear) Urine pH 7.0 (5.0-8.0) Ur Specific Powell 1.011 (1.001-1.035) Urine Protein Negative (Negative) Urine Glucose (UA) Negative (Negative) Urine Ketones Negative (Negative) Urine Blood Negative (Negative) Urine Nitrite Negative (Negative) Urine Bilirubin 2+ H (Negative) Urine Urobilinogen 4.0 (<2.0) mg/dL Ur Leukocyte Esterase Negative (Negative) Acetaminophen ug/mL Serum Alcohol mg/dL Coronavirus (PCR) (Not Detectd) 06/10/21 06/10/21 Range/Units 14:52 14:52 WBC (3.8-10.6) k/uL RBC (3.80-5.40) m/uL Hgb (11.4-16.0) gm/dL Hct (34.0-46.0) % MCV (80.0-100.0) fL MCH (25.0-35.0) pg MCHC (31.0-37.0) g/dL RDW (11.5-15.5) % Plt Count (150-450) k/uL MPV Neutrophils % % Lymphocytes % % Monocytes % % Eosinophils % % Basophils % % Neutrophils # (1.3-7.7) k/uL Lymphocytes # (1.0-4.8) k/uL Monocytes # (0-1.0) k/uL Eosinophils # (0-0.7) k/uL Basophils # (0-0.2) k/uL Anisocytosis Macrocytosis PT (9.0-12.0) sec INR (<1.2) APTT (22.0-30.0) sec Sodium 136 L (137-145) mmol/L Potassium 3.0 L (3.5-5.1) mmol/L Chloride 97 L (98-107) mmol/L Carbon Dioxide 27 (22-30) mmol/L Anion Gap 12 mmol/L BUN 11 (7-17) mg/dL Creatinine 0.60 (0.52-1.04) mg/dL Est GFR (CKD-EPI)AfAm >90 (>60 ml/min/1.73 sqM) Est GFR (CKD-EPI)NonAf >90 (>60 ml/min/1.73 sqM) Glucose 122 H (74-99) mg/dL Calcium 9.3 (8.4-10.2) mg/dL Magnesium 2.0 (1.6-2.3) mg/dL Total Bilirubin 13.6 H (0.2-1.3) mg/dL Conjugated Bilirubin 7.7 H (0.0-0.3) mg/dL Unconjugated Bilirubin 1.6 H (0.0-1.1) mg/dL Delta Bilirubin 4.3 H (0.0-0.2) mg/dL AST 176 H (14-36) U/L ALT 87 H (4-34) U/L Alkaline Phosphatase 381 H (38-126) U/L Total Protein 8.1 (6.3-8.2) g/dL Albumin 3.9 (3.5-5.0) g/dL Amylase 66 (30-110) U/L Lipase 165 (23-300) U/L HCG, Quant <2.4 mIU/mL Urine Color Urine Appearance (Clear) Urine pH (5.0-8.0) Ur Specific [place] (1.001-1.035) Urine Protein (Negative) Urine Glucose (UA) (Negative) Urine Ketones (Negative) Urine Blood (Negative) Urine Nitrite (Negative) Urine Bilirubin (Negative) Urine Urobilinogen (<2.0) mg/dL Ur Leukocyte Esterase (Negative) Acetaminophen <10.0 ug/mL Serum Alcohol <10 mg/dL Coronavirus (PCR) Not Detected (Not Detectd) - Radiology Data Radiology results: report reviewed, image reviewed Disposition Clinical Impression: Acute hepatitis, Hyperbilirubinemia, Jaundice, History of alcohol abuse, Hypokalemia, Acute liver failure Disposition: ADMITTED IP TO THIS HOSP Condition: Stable Is patient prescribed a controlled substance at d/c from ED?: No Time of Disposition: 18:02
[2021-06-10 15:26] LABS: INR 1.1 (<1.2); Partial Thromboplastin Time 24.6 sec (22.0-30.0); Prothrombin Time 11.1 sec (9.0-12.0)
[2021-06-10 15:29] LABS: Appearance,Urine Clear (Clear); Bilirubin,Urine 2+ (Negative); Blood,Urine Negative (Negative); Color,Urine Dark Yellow; Glucose,Urine (UA) Negative (Negative); Ketones,Urine Negative (Negative); Leukocyte Esterase,Urine Negative (Negative); Nitrite,Urine Negative (Negative); Protein,Urine Negative (Negative); Specific Gravity,Urine 1.011 (1.001-1.035)
[2021-06-10 15:32] LABS: Anisocytosis Slight; Basophils # (A) 0.1 k/uL (0-0.2); Basophils % (A) 1 %; Eosinophils # (A) 0.1 k/uL (0-0.7); Eosinophils % (A) 1 %; HCT 38.9 % (34.0-46.0); HGB 12.9 gm/dL (11.4-16.0); Lymphocytes # (A) 1.9 k/uL (1.0-4.8); Lymphocytes % (A) 19 %; MCH 34.2 pg (25.0-35.0); MCHC 33.3 g/dL (31.0-37.0); MCV 102.7 fL (80.0-100.0); Macrocytosis Moderate; Mean Platelet Volume 9.6; Monocytes # (A) 0.6 k/uL (0-1.0); Monocytes % (A) 6 %; Neutrophils # (A) 7.1 k/uL (1.3-7.7); Neutrophils % (A) 71 %; Platelet Count 134 k/uL (150-450); RBC 3.79 m/uL (3.80-5.40); RDW 17.8 % (11.5-15.5)
[2021-06-10 15:35] LABS: ALT 87 U/L (4-34); AST 176 U/L (14-36); Acetaminophen <10.0 ug/mL; African American GFR (CKD) >90 (>60 ml/min/1.73 sqM); Albumin 3.9 g/dL (3.5-5.0); Alcohol <10 mg/dL; Alkaline Phosphatase 381 U/L (38-126); Amylase 66 U/L (30-110); Anion Gap 12 mmol/L; Bilirubin, Conjugated 7.7 mg/dL (0.0-0.3); Bilirubin, Delta 4.3 mg/dL (0.0-0.2); Bilirubin,Unconjugated 1.6 mg/dL (0.0-1.1); Blood Urea Nitrogen 11 mg/dL (7-17); Calcium 9.3 mg/dL (8.4-10.2); Carbon Dioxide 27 mmol/L (22-30); Chloride 97 mmol/L (98-107); Glucose 122 mg/dL (74-99); Lipase 165 U/L (23-300); Non-African American GFR(CKD) >90 (>60 ml/min/1.73 sqM); Sodium 136 mmol/L (137-145); Total Bilirubin 13.6 mg/dL (0.2-1.3); Total Protein 8.1 g/dL (6.3-8.2)
[2021-06-10 15:50] LABS: HCG,Quantitative Serum <2.4 mIU/mL
[2021-06-10] MEDS ORDERED: POTASSIUM CHLORIDE ER 20 MEQ TAB.ER PO STA (16:02)
--- NOTE | 2021-06-10 17:06 | CT ---
EXAMINATION TYPE: CT abdomen pelvis w con DATE OF EXAM: 06/10/2021 COMPARISON: 08/17/2020 HISTORY: Jaundice. CT DLP: 1261.9 mGycm Automated exposure control for dose reduction was used. TECHNIQUE: Helical acquisition of images was performed from the lung bases through the pelvis. CONTRAST: Performed without Oral Contrast and with IV Contrast, patient injected with 100ml mL of Isovue 300. FINDINGS: LUNG BASES: No significant abnormality is appreciated. LIVER/GB: Hepatomegaly with diffuse steatosis and without focal hepatic lesion. 1.6 cm wedge-shaped l ow attenuating focus in the posterior medial spleen. Unremarkable gallbladder. No biliary ductal dila tation. PANCREAS: No significant abnormality is seen. SPLEEN: No significant abnormality is seen. ADRENALS: No significant abnormality is seen. KIDNEYS: No significant abnormality is seen. FREE AIR: No free air is visualized. RETROPERITONEAL ADENOPATHY: None visualized REPRODUCTIVE ORGANS: No significant abnormality is seen URINARY BLADDER: No significant abnormality is seen. PELVIC ADENOPATHY: None visualized. OSSEOUS STRUCTURES: No significant abnormality is seen. BOWEL: No acute abnormality is seen. Small fat-containing periumbilical hernia. OTHER: None IMPRESSION: Nonspecific 1.6 cm low attenuating splenic focus without suspicious features. Considerations include infarct. Otherwise no definite acute abnormality of the abdomen/pelvis. Hepatomegaly with steatosis.
[2021-06-10] MEDS ORDERED: NALOXONE 0.4 MG/ML 1 ML VIAL IV PRN (20:38)
[2021-06-10] MEDS ORDERED: HYDROmorphone 0.5 MG/0.5 ML SYRINGE IVP PRN (20:38)
[2021-06-10] MEDS ORDERED: ONDANSETRON 4 MG/2 ML VIAL IVP PRN (20:38)
[2021-06-10] MEDS: SODIUM CHLORIDE 0.9% 1,000 ML IV SCH ×2 (22:44→23:41)
[2021-06-10] MEDS: ALPRAZolam 0.25 MG TAB PO PRN (23:40)
[2021-06-11 01:36] LABS: Urine Alcohol Negative (Negative); Urine Barbiturate Negative (Negative); Urine Cocaine Negative (Negative); Urine Methadone Negative (Negative); Urine Opiates Negative (Negative); Urine Phencyclidine Negative (Negative)
[2021-06-11 04:06] LABS: Hepatitis A Antibody IgM Nonreactive (Nonreactive); Hepatitis B Core IgM Nonreactive (Nonreactive); Hepatitis B Surface Antigen Nonreactive (Nonreactive); Hepatitis C IgG Antibody Nonreactive (Nonreactive)
[2021-06-11 06:43] LABS: Anisocytosis Slight; Basophils # (A) 0.1 k/uL (0-0.2); Basophils % (A) 1 %; Eosinophils # (A) 0.1 k/uL (0-0.7); Eosinophils % (A) 1 %; HCT 39.2 % (34.0-46.0); HGB 12.2 gm/dL (11.4-16.0); Lymphocytes # (A) 1.7 k/uL (1.0-4.8); Lymphocytes % (A) 21 %; MCH 32.2 pg (25.0-35.0); MCHC 31.2 g/dL (31.0-37.0); MCV 103.3 fL (80.0-100.0); Macrocytosis Moderate; Mean Platelet Volume 9.5; Monocytes # (A) 0.6 k/uL (0-1.0); Monocytes % (A) 7 %; Neutrophils # (A) 5.5 k/uL (1.3-7.7); Neutrophils % (A) 66 %; Platelet Count 138 k/uL (150-450); RBC 3.79 m/uL (3.80-5.40); WBC 8.2 k/uL (3.8-10.6)
[2021-06-11 09:14] LABS: INR 1.04 (0.90-1.11); Prothrombin Time 11.4 sec (9.9-11.9)
[2021-06-11 10:07] LABS: African American GFR (CKD) 129.7 (60.0-200.0); Albumin/Globulin Ratio 0.99 (1.60-3.17); Anion Gap 10.5 mmol/L (10.00-18.00); BUN/Creat Ratio 12.77 Ratio (12.00-20.00); Blood Urea Nitrogen 7.9 mg/dL (9.0-27.0); Calcium 8.5 mg/dL (8.7-10.3); Carbon Dioxide 24.2 mmol/L (20.0-27.5); Non-African American GFR(CKD) 111.9 (60.0-200.0); Potassium 3.3 mmol/L (3.5-5.5); Total Bilirubin 9.6 mg/dL (0.30-1.20)
--- NOTE | 2021-06-11 12:04 | US ---
EXAMINATION TYPE: US liver DATE OF EXAM: 06/11/2021 COMPARISON: CT 06/10/2021 CLINICAL HISTORY: elevated LFTS, jaundice. EXAM MEASUREMENTS: Liver Length: 17.2 cm Gallbladder Wall: 0.3 cm there is may be mildly prominent measuring criteria. CBD: 0.5 cm Right Kidney: 10.7 x 4.4 x 5.9 cm Pancreas: visualized portions wnl Liver: measures 17.2 cm there is mild fatty infiltration. No biliary dilatation is evident. Gallbladder: No stones seen. No pericholecystic fluid is evident. Visually the gallbladder appears u nremarkable. Evidence for sonographic Boone's sign: No CBD: wnl Right Kidney: No hydronephrosis or masses seen IMPRESSION: 1. Hepatomegaly with mild fatty infiltration. 2. Borderline thickened gallbladder wall and 0.35 cm. No additional changes to suggest acute cholecys titis are ultrasound apparent.
[2021-06-11] MEDS ORDERED: Potassium Replacement Protocol 1 EACH MISC MISCELLANE PRN ×2 (12:56→16:07)
[2021-06-11] MEDS ORDERED: Magnesium Replacement Protocol 1 EACH MISC MISCELLANE PRN (12:56)
[2021-06-11] MEDS: PANTOPRAZOLE 40 MG/10 ML VIAL IV SCH (13:04)
--- NOTE | 2021-06-11 13:37 | HP ---
HISTORY AND PHYSICAL DATE OF SERVICE: 06/11/2021 CHIEF COMPLAINT: Jaundice. HISTORY OF PRESENT ILLNESS: This 41-year-old woman with a past medical history of multiple medical problems, including hypertension, history of acute alcohol withdrawal and metabolic encephalopathy and DTs, has a significant history of alcohol intake. The patient drinks a large amount of alcohol once in a while, according to her. The patient was found to be jaundiced and came to [facility] and was admitted for evaluation and treatment. Total bilirubin was 13.6 and LFTs were also elevated. GI evaluation is in progress. There is no history of any fever, rigors or chills. No history of headache, loss of consciousness, seizures. PAST MEDICAL HISTORY: History of hypertension, history of alcohol. MEDICATIONS PRIOR TO ADMISSION: Medications prior to admission include multivitamins 1 p.o. daily, trazodone 50 to 100 mg at bedtime, omeprazole 20 mg daily, BuSpar 10 mg daily, Zoloft 50 mg daily Tenormin mg daily. The patient was also taking NyQuil for sinusitis at this time. ALLERGIES: NONE. FAMILY HISTORY: History of diabetes mellitus and prediabetes. SOCIAL HISTORY: Previous smoking history. History of alcohol intake. REVIEW OF SYSTEMS: ENT: No diminished hearing. No diminished vision. CARDIOVASCULAR SYSTEM: No angina, palpitations. RESPIRATORY SYSTEM: No cough, hemoptysis. GI: As mentioned earlier. : No dysuria. NERVOUS SYSTEM: No numbness, weakness. ALLERGY/IMMUNOLOGY: No asthma or hay fever. MUSCULOSKELETAL: As mentioned earlier. HEMATOLOGY/ONCOLOGY: No history of anemia. ENDOCRINE: No history of diabetes or hypothyroidism. CONSTITUTIONAL: As mentioned earlier. DERMATOLOGY: Negative. RHEUMATOLOGY: Negative. PSYCHIATRY: As mentioned earlier. PHYSICAL EXAMINATION: Patient alert and oriented x3. Pulse 67, blood pressure 122/81, respiration 14, temperature 98.7, pulse ox 97% on room air. HEENT: Conjunctivae icteric. NECK: No jugular venous distention. CARDIOVASCULAR: S1, S2 muffled. RESPIRATION: Breath sounds diminished at the bases. A few scattered rhonchi and crackles. ABDOMEN: Soft. Mild diffuse discomfort. Mild hepatomegaly. LEGS: No edema. No swelling. NERVOUS SYSTEM: Higher functions as mentioned earlier. Moves all 4 limbs. No focal motor or sensory deficit. LYMPHATICS: No lymph node palpable in neck, axillae or groin. SKIN: Icteric. JOINTS: No active deforming arthropathy. LABS: WBC 10, hemoglobin 12.9, platelets 134. Sodium 136, potassium 3, bilirubin noted. ASSESSMENT: 1. Acute hepatitis secondary to alcoholic hepatitis, severe jaundice. 2. History of alcoholism. 3. Hyponatremia. 4. Hypokalemia. 5. Hepatomegaly with steatosis. 6. Elevated bilirubin, mostly conjugated. 7. Elevated AST and ALT. 8. Elevated alkaline phosphatase. 9. Thrombocytopenia, mild. 10.Elevated mean corpuscular volume. 11.History of delirium tremens. 12.Hypertension. 13.History of renal failure. 14.History of MRSA. 15.Remote history of nicotine dependence. 16.Obesity; body mass index 31.8. 17.FULL CODE. RECOMMENDATIONS AND DISCUSSION: In this 41-year-old woman who presented with multiple complex medical issues, we will monitor the patient closely, continue the current medications, symptomatic treatment. Alcohol cessation was recommended. Repeat labs. Symptomatic treatment will be provided. Watch for any DTs. Otherwise, resume atenolol. Hold off Tylenol and other hepatotoxic medications for now. Closely follow with Dr. Vizcarra. Guarded prognosis. Further recommendations to follow. A liver ultrasound was done which showed hepatomegaly with mild fatty infiltration and bowel and thickened gallbladder. Recommend outpatient followup. CT scan of abdomen and pelvis was also done which was reviewed personally by me and showed hepatomegaly with steatosis. Recommend continuing to follow and prognosis is guarded. I also recommend alcohol rehab as well as AA meetings. Patient understands and agrees. A copy of this dictation is being forwarded to Dr. Larissa Patricia, who is the primary physician. MMODL / NURISN: [id number] / [id number]
--- NOTE | 2021-06-11 14:00 | P.CONS ---
History of Present Illness - Reason for Consult Consult date: 06/11/21 Jaundice Requesting physician: Tye Gallegos - Chief Complaint Jaundice - History of Present Illness This is a 41-year-old female who presented to the emergency department yesterday with complaints of yellowing of her skin and eyes. Patient states she was seen at urgent care for a sinus infection and was told to come to the emergency department due to jaundice. She has a past medical history including panic attacks and alcohol abuse and has been admitted in the past with alcoholic hepatitis. Patient states she was a previous daily drinker with consumption of a bottle of wine to pain of vodka daily. States she has cut down and has not had a drink in over one week but did have several drinks on . Admitting labs showed a total bilirubin of 13.6 AST 176 ALT 87 alkaline phosphatase 381, amylase 66 lipase 165. Acetaminophen level less than 10.0. H epatitis panel nonreactive. Patient states she's also been taking DayQuil and NyQuil to do her sinus infection for the last several days. She is followed up with Dr. Vizcarra in the past. She had a EGD and colonoscopy on 11/27/2020 for nausea vomiting and abdominal bloating. EGD showed mild antral gastritis and colonoscopy was normal. She denies any abdominal pain, abdominal distention, swelling in her legs, or altered mental status changes. Patient had a CT of the abdomen and pelvis that showed a nonspecific 1.6 cm low attenuating splenic focus without suspicious features. Considerations include infarct. Otherwise no acute abnormality of the abdomen and pelvis. Hepatomegaly with steatosis. Review of Systems REVIEW OF SYSTEMS: CARDIOPULMONARY: No chest pain or shortness of breath. Gastrointestinal: No abdominal pain. Painless jaundice. No nausea or vomiting. No hematemesis, coffee-ground emesis. No rectal bleeding, or melena. GENITOURINARY: No dysuria or hematuria. MUSCULOSKELETAL: Reports normal range of motion., Joint pain. SKIN: No rashes. No jaundice. ENDOCRINE: No chills, fevers. No excessive weight gain or loss. No polydipsia or polyuria. PSYCHIATRIC: Unremarkable. NEUROLOGY: No change in mental status. Denies dizziness, headache. ENT: Vision unremarkable. Nasal congestion and cough. CONSTITUTIONAL: No recent weight loss. No fever, chills, night sweats. Past Medical History Past Medical History: Hypertension Additional Past Medical History / Comment(s): Pt recently admitted recently to [facility] on 06/27/20 with acute alcohol withdrawal/metabolic encephalopathy 2ndary to DTs/metabolic acidosis/acute alcohol hepatitis/acute renal failure and sinusitis. Other hx: ETOH abuse with alcohol withdrawal DTs History of Any Multi-Drug Resistant Organisms: None Reported Past Surgical History: Adenoidectomy, Tonsillectomy Additional Past Surgical History / Comment(s): Removal of sinus polyp, removal of embedded IUD Past Anesthesia/Blood Transfusion Reactions: No Reported Reaction Past Psychological History: Anxiety, Depression Additional Psychological History / Comment(s): Pt resides with her boyfriend. She is independent. Smoking Status: Former smoker Past Alcohol Use History: Occasional Additional Past Alcohol Use History / Comment(s): Pt started smoking as a teen and quit in 2009. She drinks heavily either a bottle of wine a day or half a fifth of liqour. Past Drug Use History: None Reported - Past Family History Mother Family Medical History: Diabetes Mellitus Additional Family Medical History / Comment(s): "Pre-Diabetes." Father Family Medical History: Coronary Artery Disease (CAD), Hypertension Brother(s) Additional Family Medical History / Comment(s): Bicuspid Aortic Valve Disease. Medications and Allergies Home Medications Medication Instructions Recorded Confirmed Type busPIRone HCl [Buspar] 10 mg PO TID PRN 06/07/20 06/10/21 History Atenolol [Tenormin] 100 mg PO DAILY 07/30/20 06/10/21 History Hydrochlorothiazide 12.5 mg PO DAILY 07/30/20 06/10/21 History [hydroCHLOROthiazide] Sertraline [Zoloft] 50 mg PO DAILY 30 Days #30 tab 07/31/20 06/10/21 Rx Multivitamin [Multivitamins Adult 1 tab PO DAILY 06/10/21 06/10/21 History Gummies] Omeprazole 20 mg PO DAILY 06/10/21 06/10/21 History traZODone HCL 50 - 100 mg PO HS PRN 06/10/21 06/10/21 History Allergies Allergy/AdvReac Type Severity Reaction Status Date / Time No Known Allergies Allergy Verified 06/10/21 16:03 Physical Exam Vitals: Vital Signs Temp Pulse Pulse Resp BP BP Pulse Ox 06/11/21 05:00 98.7 F 67 14 122/81 97 06/11/21 00:32 99.3 F 72 16 130/83 96 06/10/21 22:42 99.2 F 86 16 138/89 98 06/10/21 16:20 98.6 F 70 16 132/84 98 06/10/21 13:20 97.9 F 73 18 152/96 98 Intake and Output 06/10/21 06/11/21 06/11/21 22:59 06:59 14:59 Intake Total 600 Balance 600 Intake: Intake, IV Titration 600 Amount Sodium Chloride 0.9% 1, 600 000 ml @ 75 mls/hr IV . [id number] COUNTS INCLUDE 234 BEDS AT THE [facility] Rx#:[id number] Other: Weight 83.915 kg General appearance: The patient is alert, oriented, appears in no acute distress. HET: Head is normocephalic and atraumatic. Conjunctiva pink. Sclera anicteric. Neck: Supple without lymphadenopathy. Trachea midline. Heart: S1 S2. Regular rate and rhythm. Lungs: Clear to auscultation. Abdomen: Soft, obese, nontender, nondistended with bowel sounds. No guarding or rigidity. Skin: No rashes. No jaundice. Extremities: Normal skin color and turgor. No pedal edema. Neurological: No focal deficits. Alert and oriented x3. Results CBC & Chem 7: 06/11/21 06:04 06/11/21 06:04 Labs: Abnormal Lab Results - Last 24 Hours (Table) 06/10/21 06/10/21 06/10/21 Range/Units 14:52 14:52 14:52 RBC 3.79 L (3.80-5.40) m/uL MCV 102.7 H (80.0-100.0) fL RDW 17.8 H (11.5-15.5) % Plt Count 134 L (150-450) k/uL Sodium 136 L (137-145) mmol/L Potassium 3.0 L (3.5-5.1) mmol/L Chloride 97 L (98-107) mmol/L Glucose 122 H (74-99) mg/dL Total Bilirubin 13.6 H (0.2-1.3) mg/dL Conjugated Bilirubin 7.7 H (0.0-0.3) mg/dL Unconjugated Bilirubin 1.6 H (0.0-1.1) mg/dL Delta Bilirubin 4.3 H (0.0-0.2) mg/dL AST 176 H (14-36) U/L ALT 87 H (4-34) U/L Alkaline Phosphatase 381 H (38-126) U/L Urine Bilirubin 2+ H (Negative) 06/11/21 Range/Units 06:04 RBC 3.79 L (3.80-5.40) m/uL MCV 103.3 H (80.0-100.0) fL RDW 17.0 H (11.5-15.5) % Plt Count 138 L (150-450) k/uL Sodium (137-145) mmol/L Potassium (3.5-5.1) mmol/L Chloride (98-107) mmol/L Glucose (74-99) mg/dL Total Bilirubin (0.2-1.3) mg/dL Conjugated Bilirubin (0.0-0.3) mg/dL Unconjugated Bilirubin (0.0-1.1) mg/dL Delta Bilirubin (0.0-0.2) mg/dL AST (14-36) U/L ALT (4-34) U/L Alkaline Phosphatase (38-126) U/L Urine Bilirubin (Negative) CT scan - abdomen: report reviewed (showed a nonspecific 1.6 cm low attenuating splenic focus without suspicious features. Considerations include infarct. Otherwise no acute abnormality of the abdomen and pelvis. Hepatomegaly with steatosis.) Assessment and Plan (1) Alcoholic hepatitis Narrative/Plan: A 41-year-old female with a history of alcohol abuse who is currently still drinking however states she is not an everyday drinker as previous. States she's not had a drink in 1 week. States that she did drink pretty heavily on 's Sarai. She had been fighting a sinus congestion and cold and went to urgent care and was told to come to the emergency department for jaundice. Patient states she started noticing she was getting yellow on Monday or Monday. Once she was seen in the emergency department she had labs consistent with alcoholic hepatitis with a total bilirubin 13.6 AST 176 ALT 87 alkaline phosphat ase 381 amylase 66 lipase 165. Patient states she had been taking a lot of cold medicine of DayQuil and NyQuil however acetaminophen level was less than 10. Hepatitis panel was nonreactive. Repeat labs improving with a total bilirubin of 9.6 AST 116 ALT 66 and alkaline phosphatase 267. A CT of the abdomen and pelvis was unremarkable. Likely dealing with acute alcoholic hepatitis. We'll continue with medical management and treat symptomatically. I'll discuss with patient importance of alcohol abstinence. Liver ultrasound ordered showing hepatomegaly with mild fatty infiltration. Borderline thickened gallbladder wall no additional changes to suggest acute cholecystitis Current Visit: No Status: Acute Code(s): K70.10 - ALCOHOLIC HEPATITIS WITHOUT ASCITES SNOMED Code(s): 381417883 (2) Jaundice Current Visit: Yes Status: Acute Code(s): R17 - UNSPECIFIED JAUNDICE SNO MED Code(s): 90689287 (3) ETOH abuse Current Visit: No Status: Acute Code(s): F10.10 - ALCOHOL ABUSE, UNCOMPLICATED SNOMED Code(s): 32247739 Plan: 1. Continue symptomatic and supportive care 2. Diet as tolerated 3. Repeat CBC, CMP in the morning 4. Discussed importance of alcohol abstinence with patient the risk of cirrhosis of the liver and related to. 5. Patient may be discharged on total bilirubin LFTs continue to improve 6. Patient to follow-up next week Monday with gastroenterology, appointment scheduled Thank you for allowing us to participate in the care of the patient, the GI service will sign off, gastroenterology will not be available at the hospital this weekend. If further evaluation by gastroenterology is required the patient will need transfer as per the primary team's discretion. Dr. Leah Vizcarra I agree with the dictator's note, documented as a scribe by Beatriz Adams.
[2021-06-11] MEDS: atenoloL 50 MG TAB PO SCH (14:32)
[2021-06-11] MEDS: POTASSIUM CHLORIDE ER 20 MEQ TAB.ER PO SCH ×2 (16:26→17:30)
[2021-06-11] MEDS: ALPRAZolam 0.25 MG TAB PO PRN (21:46)
[2021-06-12 07:34] LABS: Anisocytosis Slight; HCT 38.5 % (34.0-46.0); HGB 12.2 gm/dL (11.4-16.0); Hypochromasia Slight; MCH 33.3 pg (25.0-35.0); MCHC 31.6 g/dL (31.0-37.0); MCV 105.4 fL (80.0-100.0); Macrocytosis Marked; Mean Platelet Volume 10.1; Platelet Count 160 k/uL (150-450); RBC 3.65 m/uL (3.80-5.40); RDW 16.9 % (11.5-15.5)
[2021-06-12 07:36] LABS: ALT 68 U/L (4-34); AST 136 U/L (14-36); African American GFR (CKD) >90 (>60 ml/min/1.73 sqM); Albumin 3.3 g/dL (3.5-5.0); Albumin/Globulin Ratio 0.8; Alkaline Phosphatase 312 U/L (38-126); Anion Gap 7 mmol/L; Blood Urea Nitrogen 8 mg/dL (7-17); Calcium 8.7 mg/dL (8.4-10.2); Carbon Dioxide 25 mmol/L (22-30); Chloride 105 mmol/L (98-107); Glucose 161 mg/dL (74-99); Magnesium 2.1 mg/dL (1.6-2.3); Non-African American GFR(CKD) >90 (>60 ml/min/1.73 sqM); Potassium 3.9 mmol/L (3.5-5.1); Sodium 137 mmol/L (137-145); Total Bilirubin 9.1 mg/dL (0.2-1.3); Total Protein 7.3 g/dL (6.3-8.2)
[2021-06-12 08:06] LABS: HCG,Qualitative Serum Not Detected
[2021-06-12] MEDS: MULTIVITAMINS, THERA 1 EACH TAB PO SCH (09:58)
[2021-06-12] MEDS: PANTOPRAZOLE 40 MG/10 ML VIAL IV SCH (09:58)
[2021-06-12] MEDS: atenoloL 50 MG TAB PO SCH (09:58)
[2021-06-12 10:42] LABS: Band Neutrophils % 1 %; Eosinophils # (M) 0.14 k/uL (0-0.7); Monocytes # (M) 0.77 k/uL (0-1.0); Myelocytes # (M) 0.07 k/uL (0); Myelocytes % 1 %; Neutrophils % (M) 67 %; Nucleated Red Blood Cells 0 /100 WBC (0-0); Total Cells Counted 200
[2021-06-12] MEDS: ALPRAZolam 0.25 MG TAB PO PRN (21:41)
--- NOTE | 2021-06-12 23:18 | P.PN ---
Subjective This is a pleasant 41 his old female who presents because of yellow discoloration of the eye acid scan while she was taking dayquil and nyquil for, and cold. Patient also documented drinks heavily either a bottle of wine a day or have a fifth of liquor. Patient was found to have jaundice and alcoholic hepatitis and been evaluated by gastroenterology service who recommended the patient to follow up as an outpatient, however there is no more GI coverage today and through this coming week and this facility. This morning patient was sitting in bed feeling boards, she denies any other symptoms for me. She denies chest pain or dyspnea. No abdominal pain or nausea vomiting, no diarrhea. No dysuria or urgency. No headache or dizziness or w eakness or numbness. She is fully awake and oriented and looks calm and she denies pain anywhere in her body. She actually told me she wasn't drinking prior to coming to the hospital. She denies depression or suicidal ideation. She denies homicidal ideation Patient aware that avoid Tylenol,also dayquil and nyquil. Also she was counseled to quit drinking alcohol and she agrees CT of the abdomen and pelvis with contrast showing hepatomegaly and 1.6 cm Suplena focus which could be infarct, also she was told about these problems and she aware for the need for follow-up as an outpatient. No right upper quadrant pain or tenderness, no Boone sign is negative for acute cholecystitis. No nausea vomiting. She is hemodynamically stable. Her bilirubin still elevated 9.1, liver enzymes slightly worsened with AST 136 and ALT 68. Ammonia is negative, hepatitis panel is negative, urine drug screen is negative. Liver ultrasound showed hepatomegaly with mild fatty infiltration and borderline think gallbladder. Choroidal Vitas nondetected. Platelet count is 138. HCG qualitative is negative. Objective - Vital Signs Vital signs: Vital Signs Temp 98.2 F 06/12/21 04:48 Pulse 70 06/12/21 09:00 Resp 16 06/12/21 08:50 BP 123/73 06/12/21 09:00 Pulse Ox 97 06/12/21 04:48 Intake & Output 06/11/21 06/12/21 06/12/21 18:59 06:59 18:59 Intake Total 540 1400 Balance 540 1400 Intake: Intake, IV Titration 900 Amount Sodium Chloride 0.9% 1, 900 000 ml @ 75 mls/hr IV . [id number] RICHARD Rx#:[id number] Oral 540 500 Other: Voiding Method Toilet Toilet Toilet # Voids 2 2 - Exam GENERAL: The patient is alert and oriented x3, not in any acute distress. Well developed, well nourished. -HEENT: Pupils are round and equally reacting to light. EOMI. No scleral icterus. No conjunctival pallor. Normocephalic, atraumatic. No pharyngeal erythema. No thyromegaly. Jaundiced sclera CARDIOVASCULAR: S1 and S2 present. No murmurs, rubs, or gallops. PULMONARY: Chest is clear to auscultation, no wheezing or crackles. ABDOMEN: Soft, nontender, nondistended, normoactive bowel sounds. No palpable organomegaly. MUSCULOSKELETAL: No joint swelling or deformity. EXTREMITIES: No cyanosis, clubbing, or pedal edema. NEUROLOGICAL: Gross neurological examination did not reveal any focal deficits. SKIN: No rashes. no petechiae. - Labs CBC & Chem 7: 06/12/21 06:18 06/12/21 06:18 Labs: Abnormal Lab Results - Last 24 Hours (Table) 06/12/21 06/12/21 Range/Units 06:18 06:18 RBC 3.65 L (3.80-5.40) m/uL MCV 105.4 H (80.0-100.0) fL RDW 16.9 H (11.5-15.5) % Myelocytes # (Manual) 0.07 H (0) k/uL Macrocytosis Marked A Glucose 161 H (74-99) mg/dL Total Bilirubin 9.1 H (0.2-1.3) mg/dL AST 136 H (14-36) U/L ALT 68 H (4-34) U/L Alkaline Phosphatase 312 H (38-126) U/L Albumin 3.3 L (3.5-5.0) g/dL Assessment and Plan Assessment: Acute alcoholic hepatitis with significant, severe jaundice most likely secondary to alcohol abuse and medication effect Alcohol abuse at-risk of alcohol withdrawal History of common cold, improved. Coronavirus is negative Hepatomegaly with fatty infiltration 1.6 Suplena neck focus could be infarct, asymptomatic. Mild thrombocytopenia most likely secondary to alcohol affect. Plan: This is a pleasant 41 years old female who presents with alcoholic hepatitis and severe jaundice., Also with hepatomegaly and alcohol abuse Continue monitoring her bilirubin and liver enzymes. GI team evaluated the patient and recommended close outpatient follow-up, no GI service in this facilities. Patient is aware Patient was counseled to quit drinking alcohol and to avoid Tylenol and avoiding dayquil and nyquil Labs and medication were reviewed.. Continue same treatment. Continue with symptomatic treatment. Resume home medication. Monitor lytes and vitals. DVT and GI prophylaxis. Further recommendations as per clinical course of the patient DVT prophylaxis: Subcutaneous heparin GI Prophylaxis: Ppi Prognosis is guarded
[2021-06-13] MEDS: HEPARIN SODIUM,PORCINE/PF 5,000 UNIT/0.5 ML SYRINGE SQ SCH ×2 (08:30→22:45)
[2021-06-13] MEDS: atenoloL 50 MG TAB PO SCH (08:33)
[2021-06-13] MEDS: PANTOPRAZOLE 40 MG/10 ML VIAL IV SCH (08:33)
[2021-06-13] MEDS: MULTIVITAMINS, THERA 1 EACH TAB PO SCH (08:33)
[2021-06-13] MEDS: ALPRAZolam 0.25 MG TAB PO PRN ×2 (08:33→22:38)
[2021-06-13 11:27] LABS: African American GFR (CKD) 135.6 (60.0-200.0); Albumin 3.2 g/dL (3.8-4.9); Albumin/Globulin Ratio 1.01 (1.60-3.17); Anion Gap 12.5 mmol/L (10.00-18.00); BUN/Creat Ratio 15.08 Ratio (12.00-20.00); Bilirubin, Conjugated 4.44 mg/dL (0.20-0.40); Bilirubin,Unconjugated 1.74 mg/dL (0.20-1.00); Blood Urea Nitrogen 8.2 mg/dL (9.0-27.0); Calcium 8.7 mg/dL (8.7-10.3); Carbon Dioxide 22.9 mmol/L (20.0-27.5); Globulin 3.2 g/dL (1.6-3.3); Potassium 3.8 mmol/L (3.5-5.5); Total Bilirubin 6.2 mg/dL (0.30-1.20); Total Protein 6.4 g/dL (6.2-8.2)
--- NOTE | 2021-06-13 21:32 | P.PN ---
Subjective This is a pleasant 41 his old female who presents because of yellow discoloration of the eye acid scan while she was taking dayquil and nyquil for, and cold. Patient also documented drinks heavily either a bottle of wine a day or have a fifth of liquor. Patient was found to have jaundice and alcoholic hepatitis and been evaluated by gastroenterology service who recommended the patient to follow up as an outpatient, however there is no more GI coverage today and through this coming week and this facility. This morning patient was sitting in bed feeling boards, she denies any other symptoms for me. She denies chest pain or dyspnea. No abdominal pain or nausea vomiting, no diarrhea. No dysuria or urgency. No headache or dizziness or w eakness or numbness. She is fully awake and oriented and looks calm and she denies pain anywhere in her body. She actually told me she wasn't drinking prior to coming to the hospital. She denies depression or suicidal ideation. She denies homicidal ideation Patient aware that avoid Tylenol,also dayquil and nyquil. Also she was counseled to quit drinking alcohol and she agrees CT of the abdomen and pelvis with contrast showing hepatomegaly and 1.6 cm Suplena focus which could be infarct, also she was told about these problems and she aware for the need for follow-up as an outpatient. No right upper quadrant pain or tenderness, no Boone sign is negative for acute cholecystitis. No nausea vomiting. She is hemodynamically stable. Her bilirubin still elevated 9.1, liver enzymes slightly worsened with AST 136 and ALT 68. Ammonia is negative, hepatitis panel is negative, urine drug screen is negative. Liver ultrasound showed hepatomegaly with mild fatty infiltration and borderline think gallbladder. Choroidal Vitas nondetected. Platelet count is 138. HCG qualitative is negative. 06/13/2021 Patient remains generally asymptomatic, she denies headache, weakness numbness, no chest pain or dyspnea. No abdominal pain or nausea vomiting or diarrhea. She tolerates diet well and she can finish 100% of her meals. No urinary symptoms. No scrotal rash. She still has yellow discoloration of the eyes but is improving. Yesterday her bilirubin was not improving much 9.69.1 only and she still have mildly elevated liver enzymes, today I discussed with her the need to be transferred to a tertiary care center she does not want to be transfer and she wants to wait until her bilirubin started improving gradually. She told me she has appointment with Dr. Vizcarra GI service on this coming Monday and she intends to go see her on Monday. Later on her labs came back showing improvement in her bilirubin down to 6.2, conjugated bilirubin 4.4, unconjugated bilirubin 1.7. AST 113 and ALT 64 showing overall improvement. Patient denies any depression, homicidal or suicidal ideation, consult psych service to adjust medication and because of her history of depression and alcoholism and patient agrees Objective - Vital Signs Vital signs: Vital Signs Temp 98.5 F 06/13/21 04:23 Pulse 77 06/13/21 04:23 Resp 16 06/13/21 04:23 BP 136/82 06/13/21 04:23 Pulse Ox 98 06/13/21 04:23 Intake & Output 06/12/21 06/13/21 06/13/21 18:59 06:59 18:59 Intake Total 240 Balance 240 Intake: Oral 240 Other: Voiding Method Toilet Toilet Toilet # Voids 4 # Bowel Movements 1 - Exam GENERAL: The patient is alert and oriented x3, not in any acute distress. Well developed, well nourished. -HEENT: Pupils are round and equally reacting to light. EOMI. No scleral icterus. No conjunctival pallor. Normocephalic, atraumatic. No pharyngeal erythema. No thyromegaly. Jaundiced sclera CARDIOVASCULAR: S1 and S2 present. No murmurs, rubs, or gallops. PULMONARY: Chest is clear to auscultation, no wheezing or crackles. ABDOMEN: Soft, nontender, nondistended, normoactive bowel sounds. No palpable organomegaly. MUSCULOSKELETAL: No joint swelling or deformity. EXTREMITIES: No cyanosis, clubbing, or pedal edema. NEUROLOGICAL: Gross neurological examination did not reveal any focal deficits. SKIN: No rashes. no petechiae. - Labs CBC & Chem 7: 06/12/21 06:18 06/13/21 06:46 Labs: Abnormal Lab Results - Last 24 Hours (Table) 06/12/21 Range/Units 06:18 Myelocytes # (Manual) 0.07 H (0) k/uL Assessment and Plan Assessment: Acute alcoholic hepatitis with significant, severe jaundice most likely secondary to alcohol abuse and medication effect Alcohol abuse at-risk of alcohol withdrawal History of common cold, improved. Coronavirus is negative Hepatomegaly with fatty infiltration 1.6 Suplena neck focus could be infarct, asymptomatic. Mild thrombocytopenia most likely secondary to alcohol affect. Plan: This is a pleasant 41 years old female who presents with alcoholic hepatitis and severe jaundice., Also with hepatomegaly and alcohol abuse Continue monitoring her bilirubin and liver enzymes. There are improving gradually GI team evaluated the patient and recommended close outpatient follow-up, no GI service in this facilities. Patient is aware Patient was counseled to quit drinking alcohol and to avoid Tylenol and avoiding dayquil and nyquil Labs and medication were reviewed.. Continue same treatment. Continue with symptomatic treatment. Resume home medication. Monitor lytes and vitals. DVT and GI prophylaxis. Further recommendations as per clinical course of the patient DVT prophylaxis: Subcutaneous heparin GI Prophylaxis: Ppi Prognosis is guarded possible discharge in 24-48 hours if she keeps improving
[2021-06-14 04:58] VITALS: RESP 16
[2021-06-14 07:52] LABS: Albumin 3.4 g/dL (3.5-5.0); Albumin/Globulin Ratio 0.9; Bilirubin, Conjugated 0.9 mg/dL (0.0-0.3); Bilirubin,Unconjugated 1.2 mg/dL (0.0-1.1); Total Bilirubin 5.7 mg/dL (0.2-1.3); Total Protein 7.4 g/dL (6.3-8.2)
[2021-06-14] MEDS: ALPRAZolam 0.25 MG TAB PO PRN (08:36)
[2021-06-14] MEDS: PANTOPRAZOLE 40 MG/10 ML VIAL IV SCH (08:37)
[2021-06-14] MEDS: HEPARIN SODIUM,PORCINE/PF 5,000 UNIT/0.5 ML SYRINGE SQ SCH (08:37)
[2021-06-14] MEDS: atenoloL 50 MG TAB PO SCH (08:37)
[2021-06-14] MEDS: MULTIVITAMINS, THERA 1 EACH TAB PO SCH (08:37)
--- NOTE | 2021-06-14 12:14 | P.CN ---
Psychiatric Consult - . Consult date: 06/14/21 Consult:: 06/14/21 12:14 IDENTIFYING DATA: This patient is a engaged, employed, 41-year-old female with a significant history of alcoholism presented to the hospital with jaundice HISTORY OF PRESENT ILLNESS: The patient presented to the hospital on 06/10/2021, brought in on her own volition for jaundice. On top of recently increasing alcohol use over the holidays, patient has also been taking [id number] NyQuil and DayQuil daily. Psychiatry has been consulted for evaluation of the patient's psychotropic medication regimen due to ongoing liver issues. The patient is reportedly taking BuSpar, Zoloft, and trazodone at home. She reports that this medication regimen is prescribed by her provider Ronaldo Neil at [facility]. She states that this medication regimen has been helping her significantly in terms of managing her depression and anxiety. She is currently not endorsing any suicidal or homicidal ideation, intention, and/or plan. She is not reporting any significant symptoms of depression at this time. She denies any anhedonia, hopelessness, helplessness, change in sleep, change in appetite, or decreased energy. She denies any bipolar symptoms. The patient reports no auditory or visual hallucinations. She denies any paranoia or other delusions. The patient is wishing to continue her current medication regimen if deemed safe. PAST PSYCHIATRIC HISTORY: Patient has a history of anxiety and alcohol use disorder. She is currently on a home regimen of BuSpar, trazodone, and Zoloft. Patient denies any previous psychiatric hospitalizations. [facility] with [facility]. Patient denies any history of suicide attempts in the past. PAST MEDICAL HISTORY: Past Medical History: Hypertension Additional Past Medical History / Comment(s): Pt recently admitted recently to [facility] on 06/27/20 with acute alcohol withdrawal/metabolic encephalopathy 2ndary to DTs/metabolic acidosis/acute alcohol hepatitis/acute renal failure and sinusitis. Other hx: ETOH abuse with alcohol withdrawal DTs History of Any Multi-Drug Resistant Organisms: None Reported Past Surgical History: Adenoidectomy, Tonsillectomy Additional Past Surgical History / Comment(s): Removal of sinus polyp, removal of embedded IUD Past Anesthesia/Blood Transfusion Reactions: No Reported Reaction Past Psychological History: Anxiety, Depression Additional Psychological History / Comment(s): Pt resides with her boyfriend. She is independent. Smoking Status: Former smoker Past Alcohol Use History: Occasional Additional Past Alcohol Use History / Comment(s): Pt started smoking as a teen and quit in 2009. She drinks heavily either a bottle of wine a day or half a fifth of liqour. Past Drug Use History: None Reported ALLERGIES: NO KNOWN DRUG ALLERGIES CHEMICAL DEPENDENCY HISTORY: The patient reports that she is drinking heavily over the holidays. She states it was equivalent to 1 bottle of wine per day. She does report a history of alcohol use disorder in the past. She does have previous DUI. She denies any tobacco, marijuana, or other illicit drug use. FAMILY PSYCHIATRIC/SUBSTANCE USE HISTORY: The patient does report that she has had a maternal uncle who committed suicide and was diagnosed with schizophrenia. SOCIAL HISTORY: Patient was born and raised in [facility] and now resides in [place]. 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 She has 2 college degrees. She is engaged. She has no children. She reports no legal issues. She does report a history of a DUI in the past. MENTAL STATUS EXAM: General Appearance: Patient appears to be stated age is alert, pleasant, and cooperative. Patient appears to have fair hygiene and grooming wearing hospital gown with fair eye contact. Behavior: Patient is calmly lying in bed without any agitated behavior. Speech: Patient's speech is fluent and nonpressured. Mood/Affect: Patient reports their mood is "doing fine", affect is congruent and euthymic. Suicidality/Homicidality: Patient denies having any suicidal or homicidal idea tion intent or plan. Perceptions: Patient denies any visual hallucinations and denies any auditory hallucinations Though content/process: There is no evidence of any delusional thought content and thought process is linear and goal-directed. Memory and concentration: AOX3, grossly intact for the purposes of this session. Can spell "WORLD" backwards Judgment and insight: poor Vital Signs Temp 98.1 F 06/14/21 04:56 Pulse 77 06/14/21 04:56 Resp 16 06/14/21 04:56 BP 147/88 06/14/21 04:56 Pulse Ox 97 06/14/21 04:56 Intake & Output 06/13/21 06/14/21 06/14/21 18:59 06:59 18:59 Intake Total 1080 Balance 1080 Intake: Oral 1080 Other: Voiding Method Toilet Toilet Toilet # Voids 2 # Bowel Movements 1 Laboratory Results - Last 24 Hours 06/14/21 07:07 Total Bilirubin 5.7 H Conjugated Bilirubin 0.9 H Unconjugated Bilirubin 1.2 H AST 160 H ALT 70 H Alkaline Phosphatase 297 H Total Protein 7.4 Albumin 3.4 L Globulin 4.0 Albumin/Globulin Ratio 0.9 IMPRESSIONS: Depressive disorder, unspecified Anxiety disorder, unspecified Alcohol use disorder PLAN: -At this time patient DOES NOT meet criteria for inpatient psychiatric admission. -Would recommend the following medication changes/additions: The patient is okay to continue her home medications of BuSpar 10 mg by mouth 3 times a day for anxiety, Zoloft 50 mg daily for depression/anxiety, and trazodone 50-100 mg by mouth at bedtime when necessary for insomnia. At this ti me, these medications are safe to continue despite patient's liver issues. She reports that her psychiatric symptoms are well controlled on this regimen. She is recommended to follow-up with her outpatient psychiatrist for any medication adjustments. -Psychiatry will sign off at this point, please contact with any questions. Thank you for this consult. -This provider spent approximately 15 minutes counseling the patient on alcohol use disorder. 06/14/21 12:14
[2021-06-14 12:20] VITALS: BP 125/83; PULSE 73; TEMP 98
--- NOTE | 2021-06-14 12:41 | P.PN ---
Subjective Progress Note Date: 06/14/21 Principal diagnosis: Jaundice 41-year-old female with a history of alcohol abuse and alcoholic hepatitis who presented to the emergency department with jaundice. Patient had initial bilirubin of 13.6 which has been improving over the last few days. Today's repeat labs total bilirubin 5.7 AST 160 ALT 70 alkaline phosphatase 279. Patient states overall she is feeling well. She denies any nausea, vomiting, diarrhea, or abdominal pain. Objective - Vital Signs Vital signs: Vital Signs Temp 98.1 F 06/14/21 04:56 Pulse 77 06/14/21 04:56 Resp 16 06/14/21 04:56 BP 147/88 06/14/21 04:56 Pulse Ox 97 06/14/21 04:56 Intake & Output 06/13/21 06/14/21 06/14/21 18:59 06:59 18:59 Intake Total 1080 Balance 1080 Intake: Oral 1080 Other: Voiding Method Toilet Toilet Toilet # Voids 2 # Bowel Movements 1 - Exam General appearance: The patient is alert, oriented, appears in no acute distress. HET: Head is normocephalic and atraumatic. Conjunctiva pink. Sclera icteric. Neck: Supple without lymphadenopathy. Abdomen: Soft, nontender, nondistended with bowel sounds. No guarding or rigidity. Extremities: Normal skin color and turgor. No pedal edema Skin: No rashes, jaundice. Neurological: No focal deficits. Alert and oriented -3. - Labs CBC & Chem 7: 06/12/21 06:18 06/13/21 06:46 Labs: Abnormal Lab Results - Last 24 Hours (Table) 06/13/21 06/14/21 Range/Units 06:46 07:07 BUN 8.2 L (9.0-27.0) mg/dL Creatinine 0.5 L (0.6-1.5) mg/dL Glucose 136 H (70-110) mg/dL Total Bilirubin 6.20 H 5.7 H (0.30-1.20) mg/dL Conjugated Bilirubin 4.44 H 0.9 H (0.20-0.40) mg/dL Unconjugated Bilirubin 1.74 H 1.2 H (0.20-1.00) mg/dL AST 113 H 160 H (13-35) U/L ALT 64 H 70 H (8-44) U/L Alkaline Phosphatase 269 H 297 H (41-126) U/L Albumin 3.2 L 3.4 L (3.8-4.9) g/dL Albumin/Globulin Ratio 1.01 L (1.60-3.17) g/dL Assessment and Plan (1) Alcoholic hepatitis Narrative/Plan: A 41-year-old female with a history of alcohol abuse who is currently still drinking however states she is not an everyday drinker as previous. States she's not had a drink in 1 week. States that she did drink pretty heavily on 's Sarai. She had been fighting a sinus congestion and cold and went to urgent care and was told to come to the emergency department for jaundice. Patient states she started noticing she was getting yellow on Monday or Monday. Once she was seen in the emergency department she had labs consistent with alcoholic hepatitis with a total bilirubin 13.6 AST 176 ALT 87 alkaline phosphatase 381 amylase 66 lipase 165. Patient states she had been taking a lot of cold medicine of DayQuil and NyQuil however acetaminophen level was less than 10. Hepatitis panel was nonreactive. Repeat labs improving with a total bilirubin of 9.6 AST 116 ALT 66 and alkaline phosphatase 267. A CT of the abdomen and pelvis was unremarkable. Likely dealing with acute alcoholic hepatitis. We'll continue with medical management and treat symptomatically. I'll discuss with patient importance of alcohol abstinence. Liver ultrasound ordered showing hepatomegaly with mild fatty infiltration. Borderline thickened gallbladder wall no additional changes to suggest acute cholecystitis Current Visit: No Status: Acute Code(s): K70.10 - ALCOHOLIC HEPATITIS WITHOUT ASCITES SNOMED Code(s): 219812016 (2) Jaundice Current Visit: Yes Status: Acute Code(s): R17 - UNSPECIFIED JAUNDICE SNOMED Code(s): 31244192 (3) ETOH abuse Current Visit: No Status: Acute Code(s): F10.10 - ALCOHOL ABUSE, UNCOMPLI CATED SNOMED Code(s): 40697877 Plan: 1. Continue symptomatic and supportive care 2. Diet as tolerated 3. Discussed importance of alcohol abstinence with patient the risk of cirrhosis of the liver and related to. 4. Patient is cleared by gastroenterology for discharge 6. Patient to follow-up next week Monday with gastroenterology, appointment scheduled Thank you for this consultation. Dr. Leah Vizcarra I agree with the dictator's note, documented as a scribe by Beatriz Adams.
--- NOTE | 2021-06-14 22:36 | P.DS ---
Providers Date of admission: 06/10/21 20:36 Attending physician: Tye Gallegos Consults: 06/11/21 10:27 Consult Physician Stat Consulting Provider: Enedelia Vizcarra Consult Reason/Comments: hepatitis Do you want consulting provider notified?: Yes 06/13/21 10:30 Consult Physician Routine Consulting Provider: Psychiatry - [facility] Psych[facility]ry Consult Reason/Comments: Depression, medication review, Hx alcoholism Do you want consulting provider notified?: Yes Primary care physician: Larissa Patricia Hospital Course: Diagnoses: Acute alcoholic hepatitis with significant, severe jaundice most likely secondary to alcohol abuse and medication effect. Improvement and cleared for discharge by GI service Alcohol abuse at-risk of alcohol withdrawal History of common cold, improved. Coronavirus is negative Hepatomegaly with fatty infiltration 1.6 Suplena neck focus could be infarct, asymptomatic. Mild thrombocytopenia most likely secondary to alcohol affect. Hospital course: This is a pleasant 41 his old female who presents because of yellow discoloration of the eye acid scan while she was taking dayquil and nyquil for, and cold. Patient also documented drinks heavily either a bottle of wine a day or have a fifth of liquor. Patient was found to have jaundice and alcoholic hepatitis and been evaluated by gastroenterology service who recommended the patient to follow up as an outpatient, patient remains asymptomatic for the last 3 days and was following her, she denies chest pain or dyspnea. No abdominal pain. No nausea or vomiting. No diarrhea. No urinary symptoms. No fever. Psychiatric recommended to continue with her psych medication despite her liver disease. Patient was started her to go home over the last 2-3 days Her bilirubin significantly improved from 9.6 upon admission down to 5.7 today. AST was 116 and ALT 70 today but the patient again is asymptomatic. I discussed the case with hernia from GI service who cleared her for discharge. Also patient has appointment with Dr. Vizcarra tomorrow at 4 PM that she is to follow up with. Patient's agree with the recommendation to quit alcohol, Tylenol and its products like dayquil and nyquil Patient was cleared for discharge by psychiatry and GI services. Problems and management plan were discussed with the patient and he verbalized understanding and acceptance Patient was found stable and can be discharged home however he needs follow-up as an outpatient. Patient was instructed to follow up with PCP within one week and patient agrees Patient was instructed to follow up with Dr. Vizcarra tomorrow at 4 PM and she agrees and she is aware with the appointments time Physical exam Gen: patient is a AAOx3, no distress CVS: S1-S2, RRR, no murmur Lungs: B/L CTA, no wheezing Abdomen: soft, no distention, no tenderness, positive bowel sounds Extremity: no leg edema or induration Time spent more than 35 minutes Patient Condition at Discharge: Stable Plan - Discharge Summary New Discharge Prescriptions: Continue busPIRone HCl [Buspar] 10 mg PO TID PRN PRN Reason: Anxiety Hydrochlorothiazide [hydroCHLOROthiazide] 12.5 mg PO DAILY Atenolol [Tenormin] 100 mg PO DAILY Sertraline [Zoloft] 50 mg PO DAILY 30 Days #30 tab Multivitamin [Multivitamins Adult Gummies] 1 tab PO DAILY traZODone HCL 50 - 100 mg PO HS PRN PRN Reason: SLEEP Omeprazole 20 mg PO DAILY Discharge Medication List busPIRone HCl [Buspar] 10 mg PO TID PRN 06/07/20 [History] Atenolol [Tenormin] 100 mg PO DAILY 07/30/20 [History] Hydrochlorothiazide [hydroCHLOROthiazide] 12.5 mg PO DAILY 07/30/20 [History] Sertraline [Zoloft] 50 mg PO DAILY 30 Days #30 tab 07/31/20 [Rx] Multivitamin [Multivitamins Adult Gummies] 1 tab PO DAILY 06/10/21 [History] Omeprazole 20 mg PO DAILY 06/10/21 [History] traZODone HCL 50 - 100 mg PO HS PRN 06/10/21 [History] Follow up Appointment(s)/Referral(s): Enedelia Vizcarra MD [STAFF PHYSICIAN] - 06/15/21 4:00 pm Larissa Patricia MD [Primary Care Provider] - 1 Week Patient Instructions/Handouts: Jaundice (DC) Activity/Diet/Wound Care/Special Instructions: regular diet we recommend to keep avoiding alcohol or tylenol , avoid also dayquil and nyquil. activity is restricted till you see your doctor Discharge Disposition: HOME SELF-CARE
== END 2021-06-14 12:35 | disposition home or self-care (01) | DRG 432 ==
LOC: EC 12:24 → 5NMEDONC 20:36
PROVIDERS: ADMIT Hospitalist; ATTEND Hospitalist
DX: K70.10 Alcoholic hepatitis without ascites (principal); K72.00 Acute and subacute hepatic failure without coma; E87.1 Hypo-osmolality and hyponatremia; K76.0 Fatty (change of) liver, not elsewhere classified; Z20.822 Contact with and (suspected) exposure to COVID-19; F10.10 Alcohol abuse, uncomplicated; I10 Essential (primary) hypertension; F41.0 Panic disorder [episodic paroxysmal anxiety]; F32.A Depression, unspecified; E87.6 Hypokalemia; D69.59 Other secondary thrombocytopenia; D73.4 Cyst of spleen; E66.9 Obesity, unspecified; Z68.31 Body mass index [BMI] 31.0-31.9, adult; Z79.899 Other long term (current) drug therapy; Z86.14 Personal history of Methicillin resistant Staphylococcus aureus infection; Z87.891 Personal history of nicotine dependence; K29.70 Gastritis, unspecified, without bleeding; Z71.41 Alcohol abuse counseling and surveillance of alcoholic
CPT/HCPCS: 36415; 74177; 76705; 80048; 80053; 80074; 80076; 80143; 80306; 80320; 81003; 82140; 82150; 83690; 83735; 84702; 84703; 85025; 85610; 85730; 87635; 96360; 96361; 99285

== ENCOUNTER → 2021-06-23 | Outpatient (CLI) | payer OTHER ==
[2021-06-23 10:53] LABS: Basophils # (A) 0.09 X 10*3/uL (0.00-0.10); Basophils % (A) 0.9 %; Eosinophils # (A) 0.14 X 10*3/uL (0.04-0.35); Eosinophils % (A) 1.4 %; HCT 34.5 % (37.2-46.3); HGB 11.2 g/dL (12.0-15.0); Lymphocytes # (A) 2.47 X 10*3/uL (0.90-5.00); Lymphocytes % (A) 24.7 %; MCHC 32.5 g/dL (32.0-37.0); MCV 101.8 fL (80.0-97.0); Mean Platelet Volume 11.7 fL (9.5-12.2); Monocytes # (A) 0.68 X 10*3/uL (0.20-1.00); Monocytes % (A) 6.8 %; Neutrophils # (A) 6.49 X 10*3/uL (1.80-7.70); Neutrophils % (A) 64.9 %; Platelet Count 369 X 10*3/uL (140-440); RBC 3.39 X 10*6/uL (4.10-5.20); RDW 15.3 % (11.5-14.5)
[2021-06-23 15:58] LABS: African American GFR (CKD) 131.2 (60.0-200.0); Albumin 3.8 g/dL (3.8-4.9); Albumin/Globulin Ratio 1.06 (1.60-3.17); Anion Gap 11.4 mmol/L (10.00-18.00); BUN/Creat Ratio 21.5 Ratio (12.00-20.00); Blood Urea Nitrogen 12.9 mg/dL (9.0-27.0); Calcium 9.4 mg/dL (8.7-10.3); Carbon Dioxide 22.6 mmol/L (20.0-27.5); Globulin 3.6 g/dL (1.6-3.3); Non-African American GFR(CKD) 113.2 (60.0-200.0); Potassium 3.9 mmol/L (3.5-5.5); Total Bilirubin 1.9 mg/dL (0.30-1.20); Total Protein 7.4 g/dL (6.2-8.2)
== END | disposition home or self-care (01) ==
LOC: LABWHC1 07:03
PROVIDERS: ATTEND Internal Medicine Gastroenterology
DX: F10.988 Alcohol use, unspecified with other alcohol-induced disorder (principal)
CPT/HCPCS: 36415; 80053; 85025

== ENCOUNTER → 2021-09-04 | Outpatient (CLI) | payer OTHER ==
[2021-09-04 16:35] LABS: Basophils # (A) 0.04 X 10*3/uL (0.00-0.10); Basophils % (A) 0.4 %; Eosinophils # (A) 0.17 X 10*3/uL (0.04-0.35); Eosinophils % (A) 1.8 %; HCT 39.4 % (37.2-46.3); HGB 12.8 g/dL (12.0-15.0); Immature Grans, Automated 0.3 %; Lymphocytes # (A) 1.95 X 10*3/uL (0.90-5.00); Lymphocytes % (A) 20.4 %; MCH 28.6 pg (27.0-32.0); MCHC 32.5 g/dL (32.0-37.0); MCV 87.9 fL (80.0-97.0); Mean Platelet Volume 11.6 fL (9.5-12.2); Monocytes # (A) 0.62 X 10*3/uL (0.20-1.00); Monocytes % (A) 6.5 %; NRBC Per 100 WBC 0 /100 WBCS (0.0-0.0); Neutrophils # (A) 6.75 X 10*3/uL (1.80-7.70); Neutrophils % (A) 70.6 %; Platelet Count 210 X 10*3/uL (140-440); RBC 4.48 X 10*6/uL (4.10-5.20); RDW 12.4 % (11.5-14.5); WBC 9.56 X 10*3/uL (4.50-10.00)
[2021-09-04 16:51] LABS: Hepatitis B Surface AB- Quant 3.5 mIU/mL; Hepatitis B Surface Antibody Nonreactive (Nonreactive)
[2021-09-04 16:56] LABS: African American GFR (CKD) 131.2 (60.0-200.0); Albumin 4.3 g/dL (3.8-4.9); Albumin/Globulin Ratio 1.39 (1.60-3.17); Anion Gap 14.4 mmol/L (10.00-18.00); BUN/Creat Ratio 21.67 Ratio (12.00-20.00); Calcium 9.1 mg/dL (8.7-10.3); Carbon Dioxide 22.6 mmol/L (20.0-27.5); Globulin 3.1 g/dL (1.6-3.3); Non-African American GFR(CKD) 113.2 (60.0-200.0); Potassium 3.1 mmol/L (3.5-5.5); Total Bilirubin 0.3 mg/dL (0.30-1.20); Total Protein 7.4 g/dL (6.2-8.2)
== END | disposition home or self-care (01) ==
LOC: LABWHC1 09:54
PROVIDERS: ATTEND Internal Medicine Gastroenterology
DX: F10.988 Alcohol use, unspecified with other alcohol-induced disorder (principal); K70.10 Alcoholic hepatitis without ascites
CPT/HCPCS: 36415; 80053; 85025; 86706

== ENCOUNTER → 2022-04-13 | Outpatient (CLI) | payer OTHER | END | disposition home or self-care (01) | LOC: LABWHC1 06:55 | PROVIDERS: ATTEND Obstetrics & Gynecology | DX: N83.201 Unspecified ovarian cyst, right side (principal); N83.202 Unspecified ovarian cyst, left side | CPT/HCPCS: 36415; 86304 ==

== ENCOUNTER → 2022-05-20 | Outpatient (CLI) | payer OTHER ==
[2022-05-20 12:03] LABS: Basophils # (A) 0.06 X 10*3/uL (0.00-0.10); Basophils % (A) 0.6 %; Eosinophils # (A) 0.12 X 10*3/uL (0.04-0.35); Eosinophils % (A) 1.3 %; HCT 42.6 % (37.2-46.3); HGB 13.6 g/dL (12.0-15.0); Immature Grans, Automated 0.7 %; Lymphocytes # (A) 1.82 X 10*3/uL (0.90-5.00); Lymphocytes % (A) 19.1 %; MCH 30.4 pg (27.0-32.0); MCHC 31.9 g/dL (32.0-37.0); MCV 95.3 fL (80.0-97.0); Mean Platelet Volume 11.8 fL (9.5-12.2); Monocytes # (A) 0.42 X 10*3/uL (0.20-1.00); Monocytes % (A) 4.4 %; NRBC Per 100 WBC 0 /100 WBCS (0.0-0.0); Neutrophils # (A) 7.02 X 10*3/uL (1.80-7.70); Neutrophils % (A) 73.9 %; Platelet Count 206 X 10*3/uL (140-440); RBC 4.47 X 10*6/uL (4.10-5.20); RDW 12.2 % (11.5-14.5); WBC 9.51 X 10*3/uL (4.50-10.00)
[2022-05-20 14:36] LABS: % Iron Saturation 13.26 (12.00-45.00); ALT 45 U/L (8-44); AST 44 U/L (13-35); Albumin 4.1 g/dL (3.8-4.9); Albumin/Globulin Ratio 1.57 (1.60-3.17); Alkaline Phosphatase 169 U/L (41-126); BUN/Creat Ratio 20.73 Ratio (12.00-20.00); Blood Urea Nitrogen 14.7 mg/dL (9.0-27.0); Calcium 9.4 mg/dL (8.7-10.3); Carbon Dioxide 23.9 mmol/L (20.0-27.5); Chloride 103 mmol/L (96-109); Globulin 2.6 g/dL (1.6-3.3); Glucose 134 mg/dL (70-110); Iron 66 ug/dL (50-170); Non-African American GFR(CKD) 105.2 (60.0-200.0); Potassium 3.9 mmol/L (3.5-5.5); Sodium 138 mmol/L (135-145); Total Iron Binding Capacity 497 ug/dL (228-460); Total Protein 6.8 g/dL (6.2-8.2)
== END | disposition home or self-care (01) ==
LOC: LABWHC1 07:39
PROVIDERS: ATTEND Family Medicine
DX: Z00.00 Encounter for general adult medical examination without abnormal findings (principal); Z12.31 Encounter for screening mammogram for malignant neoplasm of breast; Z23 Encounter for immunization; E78.2 Mixed hyperlipidemia; E55.9 Vitamin D deficiency, unspecified; I10 Essential (primary) hypertension; R09.81 Nasal congestion; F10.988 Alcohol use, unspecified with other alcohol-induced disorder
CPT/HCPCS: 36415; 80053; 82024; 82088; 82306; 82533; 82728; 83540; 83550; 83835; 84244; 84443; 85025

== ENCOUNTER → 2022-06-15 | Outpatient (CLI) | payer OTHER ==
--- NOTE | 2022-06-16 19:56 | MM ---
Reason for Exam: Screening (asymptomatic). Last mammogram was performed 1 year(s) and 7 month(s) ago. Patient History: Menarche at age 13. Patient has no children. Premenopausal. Risk Values: Kiersten 5 year model risk: 0.7%. NCI Lifetime model risk: 10.9%. Prior Study Comparison: 12/01/2020 Bilateral Screening Mammogram, [facility]. Tissue Density: There are scattered fibroglandular densities. Findings: Analyzed By CAD. Areas of asymmetric density remain unchanged. There is no suspicious group of microcalcifications or new suspicious mass in either breast. Overall Assessment: Benign, BI-RAD 2 Management: Screening Mammogram of both breasts in 1 year. 1. Patient should continue monthly self breast exams. 2. A clinical breast exam by your physician is recommended on an annual basis. 3. This exam should not preclude additional follow-up of suspicious palpable abnormalities. Electronically signed and approved by: Mckenzie Ibarra M.D. Radiologist
== END | disposition home or self-care (01) ==
LOC: RADMAMWWP 15:46
PROVIDERS: ATTEND Obstetrics & Gynecology
DX: Z12.31 Encounter for screening mammogram for malignant neoplasm of breast (principal)
CPT/HCPCS: 77067

== ENCOUNTER → 2022-07-05 | Outpatient (CLI) | payer OTHER ==
--- NOTE | 2022-07-05 09:39 | US ---
EXAMINATION TYPE: US renal artery duplex complet DATE OF EXAM: 07/05/2022 COMPARISON: NONE CLINICAL HISTORY: I10 ESSENTIAL (PRIMARY) HYPERTENSION. MEASUREMENTS: RENAL SIZE: Rt Kidney: 10.1 x 5.0 x 5.1cm Lt Kidney: 10.5 x 5.8 x 5.1cm RESISTANCE INDEX Right: 0.60 Left: 0.60 RA/AO RATIO (< 3.5 ) Right: 0.9 Left: 0.8 RA VELOCITY ( < 180 cm/s) Right: 162cm/s Left: 137cm/s There is possible plaque seen in mid aorta. Mildly elevated mid aortic velocity. Technically difficult study due to body habitus and overlying bowel gas. Unable to visualize proximal renal artery due to overlying bowel gas. Luz upstroke seen in segmental arteries. No evidence of renal artery stenosis. IMPRESSION: 1. No evidence of renal artery stenosis. 2. Normal grayscale sonographic appearance of the kidneys.
== END | disposition home or self-care (01) ==
LOC: RADUSWWP 06-15 15:48
PROVIDERS: ATTEND Family Medicine
DX: I10 Essential (primary) hypertension (principal)
CPT/HCPCS: 93975

== ENCOUNTER 2023-04-18 13:29 | Observation (INO) | payer OTHER ==
--- NOTE | 2023-04-18 13:39 | ED ---
Chest Pain HPI - General Source: patient, RN notes reviewed Mode of arrival: wheelchair Limitations: no limitations - History of Present Illness MD Complaint: chest pain <Roro Bill - Last Filed: 04/18/23 13:36> - General Source: patient, family, RN notes reviewed Limitations: no limitations <Garry Plascencia - Last Filed: 04/18/23 16:27> - General Chief Complaint: Chest Pain Stated Complaint: Chest Pain, N/V Time Seen by Provider: 04/18/23 13:36 - History of Present Illness Initial Comments: This is a 43-year-old female who presents to the emergency department for chest pain. States that she was sitting down at work today when she started to feel very hot and cold, she then developed chest pain and numbness in the left hand followed by nausea. Also states that she has been dealing with bronchitis over the last week. (Roro Bill) Patient is a pleasant 43-year-old female presenting to the emergency department with concerns with chest discomfort. Onset of symptoms was over an hour ago while at work. Patient had chest tightness rated 5/10. Patient also had some numbness in her left arm which still continues. Chest discomfort has resolved. No dyspnea. Patient did feel sweaty. Patient did have nausea and did vomit once. Patient still has nausea. No history of similar symptoms previously. Patient has had upper respiratory symptoms for a month and has had recent steroids for this. (Garry Plascencia) - Related Data Home Medications Medication Instructions Recorded Confirmed busPIRone HCl [Buspar] 10 mg PO BID 06/07/20 04/18/23 atenoloL [Tenormin] 100 mg PO DAILY 07/30/20 04/18/23 traZODone HCL 50 - 100 mg PO HS PRN 06/10/21 04/18/23 Albuterol Sulfate [Albuterol 2 puff PO RT-Q6H PRN 04/18/23 04/18/23 Sulfate Hfa] Losartan/Hydrochlorothiazide 1 tab PO DAILY 04/18/23 04/18/23 [Losartan-Hctz 100-25 mg Tab] Previous Rx's Medication Instructions Recorded Sertraline [Zoloft] 50 mg PO DAILY 30 Days #30 tab 07/31/20 Allergies Allergy/AdvReac Type Severity Reaction Status Date / Time No Known Allergies Allergy Verified 04/18/23 14:13 Review of Systems ROS Other: All systems not noted in ROS Statement are negative. <Roro Bill - Last Filed: 04/18/23 13:36> ROS Other: All systems not noted in ROS Statement are negative. Constitutional: Denies: fever Eyes: Denies: eye pain ENT: Denies: ear pain Respiratory: Denies: cough Cardiovascular: Reports: as per HPI, chest pain Endocrine: Denies: fatigue Gastrointestinal: Reports: nausea, vomiting. Denies: abdominal pain Genitourinary: Denies: urgency Musculoskeletal: Denies: back pain Skin: Denies: rash Neurological: Denies: weakness <Garry Plascencia - Last Filed: 04/18/23 16:27> ROS Statement: Those systems with pertinent positive or pertinent negative responses have been documented in the HPI. Past Medical History Past Medical History: Hypertension Additional Past Medical History / Comment(s): Pt recently admitted recently to [facility] on 06/27/20 with acute alcohol withdrawal/metabolic encephalopathy 2ndary to DTs/metabolic acidosis/acute alcohol hepatitis/acute renal failure and sinusitis. Other hx: ETOH abuse with alcohol withdrawal DTs History of Any Multi-Drug Resistant Organisms: None Reported Past Surgical History: Adenoidectomy, Tonsillectomy Additional Past Surgical History / Comment(s): Removal of sinus polyp, removal of embedded IUD Past Anesthesia/Blood Transfusion Reactions: No Reported Reaction Past Psychological History: Anxiety, Depression Additional Psychological History / Comment(s): Pt resides with her boyfriend. She is independent. Smoking Status: Former smoker Past Alcohol Use History: Occasional Additional Past Alcohol Use History / Comment(s): Pt started smoking as a teen and quit in 2009. She drinks heavily either a bottle of wine a day or half a fifth of liqour. Past Drug Use History: None Reported - Past Family History Mother Family Medical History: Diabetes Mellitus Additional Family Medical History / Comment(s): "Pre-Diabetes." Father Family Medical History: Coronary Artery Disease (CAD), Hypertension Brother(s) Additional Family Medical History / Comment(s): Bicuspid Aortic Valve Disease. <Roro Bill - Last Filed: 04/18/23 13:36> General Exam <Roro Bill - Last Filed: 04/18/23 13:36> Limitations: no limitations General appearance: alert, in no apparent distress Head exam: Present: normocephalic Eye exam: Present: normal appearance Neck exam: Present: normal inspection Respiratory exam: Present: normal lung sounds bilaterally. Absent: chest wall tenderness Cardiovascular Exam: Present: regular rate, normal rhythm Expanded Peripheral pulses: 2+: Radial (R), Radial (L), Posterior Tibialis (R), Posterior Tibialis (L) GI/Abdominal exam: Present: soft. Absent: tenderness Extremities exam: Present: normal inspection. Absent: pedal edema, calf tenderness Neurological exam: Present: alert Psychiatric exam: Present: normal affect, normal mood Skin exam: Present: normal color <Garry Plascencia - Last Filed: 04/18/23 16:27> - General Exam Comments Initial Comments: Visual Physical Exam Vital signs reviewed General: Well-appearing, nontoxic, no acute distress. Head: Normocephalic, atraumatic Eyes: PERRLA, EOMI ENT: Airway patent Chest: Nonlabored breathing Skin: No visual rash, normal skin tone Neuro: Alert and oriented 3 Musculoskeletal: No gross abnormalities (Roro Bill) Course Vital Signs 04/18/23 13:36 Temperature 98.2 F Pulse Rate 81 Respiratory 16 Rate Blood Pressure 142/94 O2 Sat by Pulse 98 Oximetry Chest Pain MDM <Roro Bill - Last Filed: 04/18/23 13:36> <Garry Plascencia - Last Filed: 04/18/23 16:27> - MDM I performed the QuickNote portion of this chart. Signed Roro Bill PA-C. (Roro Bill) EKG interpreted by myself shows sinus rhythm with a rate of 97. AR 160. QRS 80. QT 366. QTc 410. Normal axis. Normal QRS. No acute ST change. Was pt. sent in by a medical professional or institution (EDUARDO Mccollum, JEWEL CUPPING MACHINE OPERATOR, urgent care, hospital, or halfway...) When possible be specific @ -No Did you speak to anyone other than the patient for history (EMS, parent, family, police, friend...)? What history was obtained from this source @ -No Did you review nursing and triage notes (agree or disagree)? Why? @ -I reviewed and agree with nursing and triage notes Were old charts reviewed (outside hosp., previous admission, EMS record, old EKG, old radiological studies, urgent care reports/EKG's, halfway records)? Report findings @ -No old charts were reviewed Differential Diagnosis (chest pain, altered mental status, abdominal pain women, abdominal pain men, vaginal bleeding, weakness, fever, dyspnea, syncope, headache, dizziness, GI bleed, back pain, seizure, CVA, palpatations, mental health, musculoskeletal)? @ -Differential Chest Pain: Stable Angina, Unstable Angina, STEMI, NSTEMI Aortic Dissection, Pneumothorax, Musculoskeletal, Esophageal Spasm GERD, Cholecystitis, Pancreatitis, Zoster, this is not meant to be an all-inclusive list. EKG interpreted by me (3pts min.). @ -As above X-rays interpreted by me (1pt min.). @ -Chest x-ray shows no acute process CT interpreted by me (1pt min.). @ -None done U/S interpreted by me (1pt. min.). @ -Report reviewed What testing was considered but not performed or refused? (CT, X-rays, U/S, labs)? Why? @ -Computed tomography scan of the chest ordered secondary to elevated d-dimer What meds were considered but not given or refused? Why? @ -None Did you discuss the management of the patient with other professionals (professionals i.e. , PA, JEWEL CUPPING MACHINE OPERATOR, lab, RT, psych nurse, social service worker, bioinformatics programmer, teacher, assurance officer, manager case management)? Give summary @ -Case was discussed in detail with Dr. atkins, who will admit covering for Dr. Barger. Was smoking cessation discussed for >3mins.? @ -No Was critical care preformed (if so, how long)? @ -No Were there social determinants of health that impacted care today? How? (Homelessness, low income, unemployed, alcoholism, drug addiction, transporta tion, low edu. Level, literacy, decrease access to med. care, long-term, rehab)? @ -No Was there de-escalation of care discussed even if they declined (Discuss DNR or withdrawal of care, Hospice)? DNR status @ -No What co-morbidities impacted this encounter? (DM, HTN, Smoking, COPD, CAD, Cancer, CVA, ARF, Chemo, Hep., AIDS, mental health diagnosis, sleep apnea, morbid obesity)? @ -None Was patient admitted / discharged? Hospital course, mention meds given and route, prescriptions, significant lab abnormalities, going to OR and other pertinent info. @ -Patient reevaluated and resting comfortably in bed. Patient and family updated on results and plan. Admission orders written. Cardiology will be placed on consult. Undiagnosed new problem with uncertain prognosis? @ -No Drug Therapy requiring intensive monitoring for toxicity (Heparin, Nitro, Insulin, Cardizem)? @ -No Were any procedures done? @ -No Diagnosis/symptom? @ -Chest pain Acute, or Chronic, or Acute on Chronic? @ -Acute Uncomplicated (without systemic symptoms) or Complicated (systemic symptoms)? @ -default Side effects of treatment? @ -No Exacerbation, Progression, or Severe Exacerbation? @ -No Poses a threat to life or bodily function? How? (Chest pain, [place], NH, pneumonia, PE, COPD, DKA, ARF, appy, cholecystitis, CVA, Diverticulitis, Homicidal, Suicidal, threat to staff... and all critical care pts) @ -Potential for cardiac damage with chest pain (Garry Plascencia) Disposition <Roro Bill - Last Filed: 04/18/23 13:36> Is patient prescribed a controlled substance at d/c from ED?: No Time of Disposition: 16:27 <Garry Plascencia - Last Filed: 04/18/23 16:27> Clinical Impression: Chest pain Disposition: ADMITTED IP TO THIS HOSP Referrals: Larissa Patricia MD [Primary Care Provider] - 1-2 days
[2023-04-18] MEDS ORDERED: ASPIRIN 81 MG PO STA (13:54)
[2023-04-18] MEDS ORDERED: NITROGLYCERIN OINT 1 INCH/GM PACKET TOPICAL STA (13:55)
[2023-04-18] MEDS ORDERED: ONDANSETRON 4 MG/2 ML VIAL IVP STA (13:56)
[2023-04-18 14:49] LABS: Basophils % (A) 1 %; Eosinophils % (A) 0 %; HCT 42.9 % (34.0-46.0); HGB 14.5 gm/dL (11.4-16.0); Lymphocytes # (A) 1.6 k/uL (1.0-4.8); Lymphocytes % (A) 28 %; MCH 32.9 pg (25.0-35.0); MCHC 33.7 g/dL (31.0-37.0); MCV 97.4 fL (80.0-100.0); Mean Platelet Volume 8.9; Monocytes # (A) 0.3 k/uL (0-1.0); Monocytes % (A) 5 %; Neutrophils # (A) 3.7 k/uL (1.3-7.7); Neutrophils % (A) 65 %; Platelet Count 202 k/uL (150-450); RDW 12.8 % (11.5-15.5); WBC 5.7 k/uL (3.8-10.6)
[2023-04-18 15:01] LABS: ALT 131 U/L (4-34); AST 209 U/L (14-36); African American GFR (CKD) >90 (>60 ml/min/1.73 sqM); Albumin 4.3 g/dL (3.5-5.0); Alkaline Phosphatase 249 U/L (38-126); Anion Gap 18 mmol/L; Blood Urea Nitrogen 33 mg/dL (7-17); Carbon Dioxide 19 mmol/L (22-30); Chloride 100 mmol/L (98-107); Glucose 120 mg/dL (74-99); Magnesium 1.8 mg/dL (1.6-2.3); Non-African American GFR(CKD) 79 (>60 ml/min/1.73 sqM); Potassium 3.8 mmol/L (3.5-5.1); Sodium 137 mmol/L (137-145); Total Protein 7.9 g/dL (6.3-8.2)
[2023-04-18 15:05] LABS: INR 1.3 (<1.2); Partial Thromboplastin Time 27.9 sec (22.0-30.0); Prothrombin Time 13.5 sec (10.0-12.5)
--- NOTE | 2023-04-18 15:10 | XR ---
EXAMINATION TYPE: XR chest 2V DATE OF EXAM: 04/18/2023 2:54 PM COMPARISON: Chest radiographs from 11/16/2020 TECHNIQUE: XR chest 2V Frontal and lateral views of the chest. CLINICAL INDICATION:Female, 43 years old with history of Chest Pain; FINDINGS: Lungs/Pleura: There is no evidence of pleural effusion, focal consolidation, or pneumothorax. Pulmonary vascularity: Unremarkable. Heart/mediastinum: Cardiomediastinal silhouette is unremarkable. Musculoskeletal: No acute osseous pathology. IMPRESSION: No acute cardiopulmonary disease/process.
[2023-04-18 15:24] LABS: HCG,Qualitative Serum Not Detected
--- NOTE | 2023-04-18 16:13 | US ---
EXAMINATION TYPE: US gallbladder DATE OF EXAM: 04/18/2023 COMPARISON: NONE CLINICAL INDICATION: Female, 43 years old with history of pain; chest pain TECHNIQUE: Multiple sonographic images of the right upper quadrant are obtained. FINDINGS: EXAM MEASUREMENTS: Liver Length: 17.1cm Gallbladder Wall: 0.2cm CBD: 0.4cm Right Kidney: 10.5 x 4.0 x 5.5cm CLERICAL CLERK NOTES:difficult to penetrate due to bowel gas Pancreas: wnl Liver: difficult to penetrate Gallbladder: wnl Evidence for sonographic Boone's sign: no CBD: wnl Right Kidney: wnl IMPRESSION: Hepatic steatosis suggested.
[2023-04-18] MEDS ORDERED: NITROGLYCERIN SL TABS 0.4 MG TAB SUBLINGUAL PRN (16:28)
--- NOTE | 2023-04-18 16:31 | CT ---
EXAMINATION TYPE: CT angio chest DATE OF EXAM: 04/18/2023 COMPARISON: HISTORY: Chest pain CT DLP: 472.1 mGycm CONTRAST: CT chest with contrast and 3D reconstruction with MIP imaging is performed with IV Contrast, patient injected with 100 mL of Isovue 370. Contrast-enhanced CT of the chest was performed through the course of the pulmonary arteries with trevor g and mediastinal window settings submitted. 3D reconstruction with MIP imaging was also performed. PULMONARY ARTERIES: Limited enhancement of the pulmonary arteries given timing of the contrast bolus . No large central embolus is seen with certainty. Smaller peripheral emboli cannot be excluded on th e basis of this study. LUNGS: The lungs are clear and free of infiltrate. No evidence for atelectasis. No pulmonary nodule or mass is detected. No pleural effusion. MEDIASTINUM: Thoracic aorta is of normal caliber.The heart is mildly enlarged. No evidence for medi astinal mass. No mediastinal lymph nodes greater than 1cm. HILAR STRUCTURES: No evidence for mass. No hilar lymph nodes greater than 1 cm. UPPER ABDOMEN: No significant abnormality is seen. IMPRESSION: 1. Limited enhancement of the pulmonary arteries given timing of the contrast bolus. No large centra l embolus is seen with certainty. Smaller peripheral emboli cannot be excluded on the basis of this s kristina.
[2023-04-18] MEDS ORDERED: THIAMINE 100 MG/ML 2 ML VIAL IM STA (16:44)
[2023-04-18] MEDS ORDERED: LORazepam 1 MG TAB PO PRN ×3 (16:44)
[2023-04-18] MEDS ORDERED: LORazepam 0.5 MG TAB PO PRN (16:44)
[2023-04-18] MEDS: NITROGLYCERIN OINT 1 INCH/GM PACKET TOPICAL SCH ×2 (17:29→23:56)
[2023-04-18] MEDS ORDERED: traZODone HCL 50 MG TAB PO PRN (20:14)
[2023-04-18] MEDS ORDERED: ALBUTEROL NEBULIZED 2.5 MG/3 ML INHALATION PRN (20:14)
[2023-04-18] MEDS: busPIRone HCl 10 MG TAB PO SCH (20:46)
--- NOTE | 2023-04-18 21:50 | P.HPIM ---
History of Present Illness This is a pleasant 43 years old female with multiple medical problems in the past including history of hepatitis and she follows up with Dr. 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 Patient presents because of chest pain associated with numbness in her left arm, 3 hours, she said that her chest pain look severe that she cannot ambulate and walk so she had to sit. Oak like pressure, no specific plus pitting or reli eving factors. Patient also was anxious sweating and shaky. Also she has some dyspnea but now she is breathing is fine. She has little cough with yellow phlegm and bloody discharge from her nose which stopped now. While here in the emergency room she received one-time dose of aspirin, after that she got upset stomach and she vomited 3 times with bile and no blood. She says that her bowel movements fine, and her urine is fine. Currently she has menstrual period. Patient also reports poor appetite and little bit of headache and dizziness but no weakness or numbness she denies smoking or illicit drugs, she drinks alcohol most of the last week but not every day as she describes Patient also has history of bronchitis. No suicidal ideation Patient hemodynamically stable CTA of the chest: Limited study. No large pulmonary embolism. Gallbladder ultrasound: Hepatic steatosis Chest x-ray: No acute cardiopulmonary process Labs unremarkable except for mildly elevated AST 209 more than ALT 137 bilirubin normal at 1.0. Most likely secondary to alcoholic effect Emergency room patient was started on aspirin 325 mg and admitted with cardiology consult Review of Systems Review of systems CONSTITUTIONAL: No fever, no malaise, no fatigue. HEENT: No recent visual problems or hearing problems. Denied any sore throat. CARDIOVASCULAR: No orthopnea, PND, no palpitations, no syncope. PULMONARY: No shortness of breath, no cough, no hemoptysis. GASTROINTESTINAL: No diarrhea, no nausea, no vomiting, no abdominal pain. Normoactive bowel sounds. NEUROLOGICAL: No headaches, no weakness, no numbness. HEMATOLOGICAL: Denies any bleeding or petechiae. GENITOURINARY: Denies any burning micturition, frequency, or urgency. MUSCULOSKELETAL/RHEUMATOLOGICAL: Denies any joint pain, swelling, or any muscle pain. ENDOCRINE: Denies any polyuria or polydipsia. Past Medical History Past Medical History: Hypertension Additional Past Medical History / Comment(s): Pt recently admitted recently to [facility] on 06/27/20 with acute alcohol withdrawal/metabolic encephalopathy 2ndary to DTs/metabolic acidosis/acute alcohol hepatitis/acute renal failure and sinusitis. Other hx: ETOH abuse with alcohol withdrawal DTs History of Any Multi-Drug Resistant Organisms: None Reported Past Surgical History: Adenoidectomy, Tonsillectomy Additional Past Surgical History / Comment(s): Removal of sinus polyp, removal of embedded IUD Past Anesthesia/Blood Transfusion Reactions: No Reported Reaction Past Psychological History: Anxiety, Depression Additional Psychological History / Comment(s): Pt resides with her boyfriend. She is independent. Smoking Status: Former smoker Past Alcohol Use History: Occasional Additional Past Alcohol Use History / Comment(s): Pt started smoking as a teen and quit in 2009. She drinks heavily either a bottle of wine a day or half a fifth of liqour. Past Drug Use History: None Reported - Past Family History Mother Family Medical History: Diabetes Mellitus Additional Family Medical History / Comment(s): "Pre-Diabetes." Father Family Medical History: Coronary Artery Disease (CAD), Hypertension Brother(s) Additional Family Medical History / Comment(s): Bicuspid Aortic Valve Disease. Medications and Allergies Home Medications Medication Instructions Recorded Confirmed Type busPIRone HCl [Buspar] 10 mg PO BID 06/07/20 04/18/23 History atenoloL [Tenormin] 100 mg PO DAILY 07/30/20 04/18/23 History Sertraline [Zoloft] 50 mg PO DAILY 30 Days #30 tab 07/31/20 04/18/23 Rx traZODone HCL 50 - 100 mg PO HS PRN 06/10/21 04/18/23 History Albuterol Sulfate [Albuterol 2 puff PO RT-Q6H PRN 04/18/23 04/18/23 History Sulfate Hfa] Losartan/Hydrochlorothiazide 1 tab PO DAILY 04/18/23 04/18/23 History [Losartan-Hctz 100-25 mg Tab] Allergies Allergy/AdvReac Type Severity Reaction Status Date / Time No Known Allergies Allergy Verified 04/18/23 14:13 Physical Exam Vitals: Vital Signs Temp Pulse Resp BP Pulse Ox 04/18/23 13:36 98.2 F 81 16 142/94 98 Intake and Output 04/18/23 04/18/23 04/18/23 06:59 14:59 22:59 Other: Weight 81.647 kg GENERAL: The patient is alert and oriented x3, not in any acute distress. Well developed, well nourished. HEENT: Pupils are round and equally reacting to light. EOMI. No scleral icterus. No conjunctival pallor. Normocephalic, atraumatic. No pharyngeal erythema. No thyromegaly. CARDIOVASCULAR: S1 and S2 present. No murmurs, rubs, or gallops. PULMONARY: Chest is clear to auscultation, no wheezing , no crackles. ABDOMEN: Soft, nontender, nondistended, normoactive bowel sounds. No palpable organomegaly. MUSCULOSKELETAL: No joint swelling or deformity. EXTREMITIES: No cyanosis, clubbing, or pedal edema. NEUROLOGICAL: Gross neurological examination did not reveal any focal deficits. SKIN: No rashes. no petechiae. Results CBC & Chem 7: 04/18/23 14:40 04/18/23 14:40 Labs: Abnormal Lab Results - Last 24 Hours (Table) 04/18/23 04/18/23 Range/Units 14:40 14:40 PT 13.5 H (10.0-12.5) sec INR 1.3 H (<1.2) D-Dimer 0.80 H (<0.60) mg/L FEU Carbon Dioxide 19 L (22-30) mmol/L BUN 33 H (7-17) mg/dL Glucose 120 H (74-99) mg/dL AST 209 H (14-36) U/L ALT 131 H (4-34) U/L Alkaline Phosphatase 249 H (38-126) U/L Assessment and Plan Assessment: Chest pain, rule out cardiac causes. Differential diagnosis included panic attack versus musculoskeletal pain. alcohol use disorder Elevated liver enzymes mostly likely hepatic transaminitis Hepatic steatosis secondary to cholelithiasis History of alcoholic hepatitis and jaundice Obesity with BMI of 30.9. Depression Plan: Continue with aspirin Cardiology consult Start CIWA protocol with thiamine Continue with Zoloft Labs and medication were reviewed.. Continue same treatment. Continue with symptomatic treatment. Resume home medication. Monitor labs and vitals. DVT and GI prophylaxis. Further recommendations as per clinical course of the patient DVT prophylaxis: Subcutaneous heparin GI Prophylaxis: Pepcid Prognosis is guarded
[2023-04-19] MEDS: NITROGLYCERIN OINT 1 INCH/GM PACKET TOPICAL SCH (05:25)
[2023-04-19 08:52] VITALS: BP 129/84; PULSE 84; RESP 16; TEMP 98.3
[2023-04-19] MEDS ORDERED: THIAMINE 100 MG TAB PO SCH (09:00)
[2023-04-19] MEDS ORDERED: HEPARIN SODIUM,PORCINE 5,000 UNIT/ML 1 ML VIAL SQ SCH (09:00)
[2023-04-19] MEDS ORDERED: atenoloL 50 MG TAB PO SCH (09:00)
[2023-04-19] MEDS ORDERED: FAMOTIDINE 20 MG/2 ML VIAL IV SCH (09:00)
[2023-04-19] MEDS ORDERED: SERTRALINE 50 MG TAB PO SCH (09:00)
[2023-04-19] MEDS ORDERED: LOSARTAN-HCTZ 50-12.5 MG 1 EACH TAB PO SCH (09:00)
[2023-04-19] MEDS ORDERED: ASPIRIN 325 MG TAB PO SCH (09:00)
[2023-04-19 09:10] LABS: Chol/HDL Ratio 9.48 Ratio; HDL Cholesterol 30.7 mg/dL (40.00-60.00); VLDL Calculation 325.8 mg/dL (5.00-40.00)
[2023-04-19] MEDS ORDERED: ATORVASTATIN 40 MG TAB PO SCH (09:30)
[2023-04-19] MEDS: busPIRone HCl 10 MG TAB PO SCH (09:42)
--- NOTE | 2023-04-19 10:40 | CA ---
Transthoracic Echo Report Name: Jennifer Corona Age: 43 Gender: F : 1980 Exam Date: 04/19/2023 08:04 Exam Location: [facility] Ht (in): 64 Wt (lb): 180 Ordering Physician: Garry Plascencia DO Attending/Referring Phys: Immigration Manager Peyton Lassiter RDCS Procedure CPT: Indications: CP Cardiac Hx: Technical Quality: Technically difficult study Contrast 1: Definity Total Dose (mL): 2 Contrast 2: Total Dose (mL): MEASUREMENTS (Male / Female) Normal Values 2D ECHO LV Diastolic Diameter PLAX 4.5 cm 4.2 - 5.9 / 3.9 - 5.3 cm LV Systolic Diameter PLAX 3.1 cm IVS Diastolic Thickness 1.1 cm 0.6 - 1.0 / 0.6 - 0.9 cm LVPW Diastolic Thickness 1.4 cm 0.6 - 1.0 / 0.6 - 0.9 cm LV Relative Wall Thickness 0.6 RV Internal Dim ED PLAX 4.3 cm LA Volume 54.4 cm??? 18 - 58 / 22 - 52 cm??? LA Volume Index 27.9 cm???/m??? 16 - 28 cm???/m??? M-MODE Aortic Root Diameter MM 3.4 cm LA Systolic Diameter MM 3.6 cm LA Ao Ratio MM 1.1 AV Cusp Separation MM 2.3 cm DOPPLER AV Peak Velocity 128.9 cm/s AV Peak Gradient 6.6 mmHg AV Mean Velocity 80.4 cm/s AV Mean Gradient 3.1 mmHg AV Velocity Time Integral 24.5 cm LVOT Peak Velocity 108.6 cm/s LVOT Peak Gradient 4.7 mmHg LVOT Velocity Time Integral 23.0 cm MV Area PHT 3.4 cm??? Mitral E Point Velocity 70.1 cm/s Mitral A Point Velocity 56.2 cm/s Mitral E to A Ratio 1.2 MV Deceleration Time 222.6 ms MV E' Velocity 8.6 cm/s Mitral E to MV E' Ratio 8.2 TR Peak Velocity 206.6 cm/s TR Peak Gradient 17.1 mmHg Right Ventricular Systolic Press 21.6 mmHg FINDINGS Left Ventricle Mildly increased left ventricular wall thickness. Left ventricular cavity size normal. Normal left ventricular systolic function with no obvious regional wall motion abnormalities. Left ventricular ejection fraction is estimated at 55-60 %. Normal left ventricular diastolic filling pattern. Right Ventricle Moderate right ventricular dilatation. Right ventricular systolic pressure within normal limits. Right Atrium Normal right atrial size. Left Atrium Mildly increased left atrial volume. Mitral Valve Structurally normal mitral valve. Mild mitral regurgitation. Aortic Valve Trileaflet aortic valve. No aortic valve stenosis or regurgitation. Tricuspid Valve Structurally normal tricuspid valve. Mild tricuspid regurgitation. Pulmonic Valve Structurally normal pulmonic valve. Trace pulmonic regurgitation. Pericardium No pericardial effusion. Aorta Normal size aortic root and proximal ascending aorta. CONCLUSIONS Normal LV size and systolic function. Mild mitral and tricuspid regurgitation. No pericardial effusion. No pulmonary hypertension Previewed by: Dr. Ana Simms MD (Electronically Signed) Final Date: 19 April 2023 10:39
[2023-04-19 13:25] LABS: LDL Cholesterol,Direct Reflex 15.6 mg/dL (0.00-129.00)
--- NOTE | 2023-04-19 21:25 | CONS ---
CONSULTATION HISTORY OF PRESENT ILLNESS: Jennifer Corona is a 43-year-old patient who sees Dr. Vizcarar in the outpatient setting from a cardiology standpoint. She has a history of hypertension and hyperlipidemia and also alcoholism. She comes in with complaints of sharp pain on the left lateral chest. Quality of the pain is very atypical. She had a CT angio performed because of mild elevation of D-dimer. There is no clear-cut evidence of any large pulmonary embolism. The aorta is also normal. She is resting comfortably without symptoms. However, she admits to drinking alcohol heavily. Liver functions are abnormal and the ultrasound of the gallbladder suggests hepatic steatosis. Echocardiogram revealed good systolic function. EKG does not reveal any significant abnormalities. At the time of my evaluation, she is resting comfortably without any symptoms. EKG is unremarkable. Troponin levels are unremarkable. PAST MEDICAL HISTORY: 1. Hypertension. 2. Alcoholism. 3. History of hyperlipidemia. 4. Underlying depression. MEDICATIONS: Medications at home include, 1. BuSpar. 2. Tenormin. 3. Losartan HCTZ. 4. Albuterol inhaler. 5. Atorvastatin 40 mg daily. ALLERGIES: None. PHYSICAL EXAMINATION: VITAL SIGNS: Blood pressure is 130/70, pulse rate is 84 and regular. HEENT: Unremarkable. Fundus was not examined by me. NECK: Supple. No JVD. I do not hear a carotid bruit. There is no thyromegaly. HEART: Reveals S1, S2 heard normally. No rub, murmur or gallop. LUNGS: Clear. ABDOMEN: Soft, nontender. MUSCULOSKELETAL: Lower extremities reveal normal pulses. No edema. CENTRAL NERVOUS SYSTEM: Normal. DIAGNOSTIC DATA: EKG revealed sinus mechanism, no acute changes. IMPRESSION: 1. Atypical chest pain. 2. Hypertension. 3. Hyperlipidemia. 4. Alcoholism with liver function abnormalities. RECOMMENDATIONS: The patient's echo is unremarkable. I am recommending outpatient stress test. She has been counseled regarding the importance of quitting alcohol, same home medications. She can be discharged and after the stress test as an outpatient, she will see Dr. Vizcarra in the office for a followup and/or PCP. MMODL / IJN: [id number] /
--- NOTE | 2023-04-19 23:54 | P.DS ---
Providers Date of admission: 04/18/23 16:28 Attending physician: Gary Holland MD Consults: 04/18/23 16:28 Consult Physician Urgent Consulting Provider: Jcarlos Nina Consult Reason/Comments: cp Do you want consulting provider notified?: Yes Primary care physician: Larissa Patricia Hospital Course: Diagnoses: Chest pain, resolved, acute coronary syndrome causes were ruled. Patient requires stress test as an outpatient. Could be secondary to panic attack or alcohol disorder alcohol use disorder Elevated liver enzymes mostly likely hepatic transaminitis Hepatic steatosis secondary to alcohol use disorder cholelithiasis History of alcoholic hepatitis and jaundice Obesity with BMI of 30.9. Depression Hospital course: This is a pleasant 43 years old female with multiple medical problems in the p ast including history of hepatitis and she follows up with Dr. 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 Patient presents because of chest pain . Patient evaluated by enrobing machine corder, next a chest pain resolved completely. Patient was sitting up in bed and moving around the room freely with no difficulty. Electrical Power Engineer evaluated the patient and cleared her for discharge with recommendation for outpatient stress test and she is agreeable. No abdominal pain that she tolerates diet well. She has plans for the future although has history of depression but denies hopelessness, she denies suicidal or homicidal ideation. Patient was to go home today. Problems and management plan were discussed with the patient and he verbalized understanding and acceptance Patient was found stable and can be discharged home in guarded prognosis however he needs follow-up as an outpatient. Patient was instructed to follow up with PCP Dr. gifford within one week and patient agrees Patient was instructed to follow up with her enrobing machine corder Dr. Vizcarra/Citl[place] and she agrees to follow up with Physical exam Gen: patient is a AAOx3, no distress CVS: S1-S2, RRR, no murmur Lungs: B/L CTA, no wheezing Abdomen: soft, no distention, no tenderness, positive bowel sounds Extremity: no leg edema or induration Time spent more than 35 minutes Plan - Discharge Summary New Discharge Prescriptions: New Thiamine [Vitamin B-1] 100 mg PO DAILY #30 tab Atorvastatin [Lipitor] 40 mg PO HS #30 tab Continue busPIRone HCl [Buspar] 10 mg PO BID atenoloL [Tenormin] 100 mg PO DAILY Sertraline [Zoloft] 50 mg PO DAILY 30 Days #30 tab Albuterol Sulfate [Albuterol Sulfate Hfa] 2 puff PO RT-Q6H PRN PRN Reason: Shortness Of Breath traZODone HCL 50 - 100 mg PO HS PRN PRN Reason: SLEEP Losartan/Hydrochlorothiazide [Losartan-Hctz 100-25 mg Tab] 1 tab PO DAILY Discharge Medication List busPIRone HCl [Buspar] 10 mg PO BID 06/07/20 [History] atenoloL [Tenormin] 100 mg PO DAILY 07/30/20 [History] Sertraline [Zoloft] 50 mg PO DAILY 30 Days #30 tab 07/31/20 [Rx] traZODone HCL 50 - 100 mg PO HS PRN 06/10/21 [History] Albuterol Sulfate [Albuterol Sulfate Hfa] 2 puff PO RT-Q6H PRN 04/18/23 [History] Losartan/Hydrochlorothiazide [Losartan-Hctz 100-25 mg Tab] 1 tab PO DAILY 04/18/23 [History] Atorvastatin [Lipitor] 40 mg PO HS #30 tab 04/19/23 [Rx] Thiamine [Vitamin B-1] 100 mg PO DAILY #30 tab 04/19/23 [Rx] Follow up Appointment(s)/Referral(s): Larissa Patricia MD [Primary Care Provider] - 1-2 days Doug Vizcarra MD [STAFF PHYSICIAN] - 05/04/23 2:45 pm (we recommend stress test as outpatient) Patient Instructions/Handouts: Chest Pain (DC), Abuse of Alcohol (DC), Alcohol Withdrawal (DC) Activity/Diet/Wound Care/Special Instructions: OP Exercise stress test in 1-2 weeks (May AT 1PM [facility] heart healthy diet , low fat diet activity is restricted till you see your doctor FOLLOW SOONER FOR WORSENING SYMPTOMS, PROBLEMS OR CONCERNS. MAY 11 at 1:00pm [facility] for [facility]. No drinking alcohol Discharge Disposition: HOME SELF-CARE
== END 2023-04-19 11:02 | disposition home or self-care (01) ==
LOC: EC 13:29 → 6NMEDSUR 16:28
PROVIDERS: ADMIT Internal Medicine; ATTEND Internal Medicine
DX: R07.89 Other chest pain (principal); R20.0 Anesthesia of skin; I10 Essential (primary) hypertension; F10.20 Alcohol dependence, uncomplicated; K70.0 Alcoholic fatty liver; F41.9 Anxiety disorder, unspecified; K70.10 Alcoholic hepatitis without ascites; K80.20 Calculus of gallbladder without cholecystitis without obstruction; E78.5 Hyperlipidemia, unspecified; R79.89 Other specified abnormal findings of blood chemistry; E66.9 Obesity, unspecified; Z68.30 Body mass index [BMI] 30.0-30.9, adult; F32.A Depression, unspecified; Z79.899 Other long term (current) drug therapy; Z87.09 Personal history of other diseases of the respiratory system; Z87.891 Personal history of nicotine dependence; Z98.890 Other specified postprocedural states; Z83.3 Family history of diabetes mellitus; Z82.49 Family history of ischemic heart disease and other diseases of the circulatory system
CPT/HCPCS: 96372 ×2; 96375; 96374; 99285; 36415; 93005; 85379; 80061; 80053; 83735; 84484; 85025; 85610; 85730; 84703; 83721; 71046; 76705; 71275; G0378 ×2; C8929; J1644; J3411; J2405; J3490; Q9957; Q9967; 93306

== ENCOUNTER → 2023-05-13 | Outpatient (CLI) | payer OTHER ==
[2023-05-13 13:21] LABS: Basophils # (A) 0.04 X 10*3/uL (0.00-0.10); Basophils % (A) 0.5 %; Eosinophils # (A) 0.08 X 10*3/uL (0.04-0.35); Eosinophils % (A) 1.1 %; HCT 41.9 % (37.2-46.3); HGB 13.6 g/dL (12.0-15.0); Lymphocytes # (A) 2.24 X 10*3/uL (0.90-5.00); Lymphocytes % (A) 29.4 %; MCH 31.9 pg (27.0-32.0); MCHC 32.5 g/dL (32.0-37.0); MCV 98.4 FL (80.0-97.0); Mean Platelet Volume 11.7 FL (9.5-12.2); Monocytes # (A) 0.61 X 10*3/uL (0.20-1.00); NRBC Per 100 WBC 0 X 10*3/uL (0.00-0.01); Neutrophils % (A) 60.5 %; Platelet Count 324 X 10*3/uL (140-440); RBC 4.26 X 10*6/uL (4.10-5.20); RDW 12.5 % (11.5-14.5); WBC 7.61 X 10*3/uL (4.50-10.00)
[2023-05-13 13:30] LABS: ALT 59 U/L (8-44); AST 44 U/L (13-35); Albumin 4.4 g/dL (3.8-4.9); Albumin/Globulin Ratio 1.47 Ratio (1.60-3.17); Alkaline Phosphatase 148 U/L (41-126); BUN/Creat Ratio 23.14 Ratio (12.00-20.00); Blood Urea Nitrogen 16.2 mg/dL (9.0-27.0); Calcium 9.9 mg/dL (8.7-10.3); Carbon Dioxide 23.9 mmol/L (21.6-31.8); Chloride 105 mmol/L (96-109); Chol/HDL Ratio 3.49 Ratio; Glucose 118 mg/dL (70-110); LDL Cholesterol,Calculated 105.8 mg/dL (0.0-131.0); Potassium 4.4 mmol/L (3.5-5.5); Sodium 144 mmol/L (135-145); Total Bilirubin 0.4 mg/dL (0.3-1.2); Total Protein 7.4 g/dL (6.2-8.2)
== END | disposition home or self-care (01) ==
LOC: LABWHC1 08:16
PROVIDERS: ATTEND Family Medicine
DX: I10 Essential (primary) hypertension (principal); E78.2 Mixed hyperlipidemia
CPT/HCPCS: 36415; 80053; 80061; 82088; 82533; 83036; 83835; 84244; 84443; 85025